=== PATIENT | male | born 1970 | race Caucasian/White ===

== ENCOUNTER 2024-01-12 10:52 | Inpatient (IN) | payer SELFPAY ==
--- NOTE | 2024-01-12 11:13 | ED ---
Abdominal Pain HPI - General Source: patient, RN notes reviewed Mode of arrival: ambulatory Limitations: no limitations <Alpa Matute - Last Filed: 01/12/24 15:29> <Jason Egan - Last Filed: 01/14/24 07:36> - General Chief Complaint: Abdominal Pain Stated Complaint: Abd Pain Time Seen by Provider: 01/12/24 11:11 - History of Present Illness Initial Comments: Patient is a 53-year-old male presenting to the ER with chief complaint of abdominal pain. Patient states about 3 days ago he noticed a sharp pain in his right lower quadrant. He states the pain is now over bilateral lower quadrants. He states he has been having fevers and chills. He reports yesterday he only ate to peanuts. He also has been having decreased bowel movements stating only a little liquid came out yesterday. Denies any blood or dark tarry stools. He reports he tried drinking prune juice to help with constipation and he ended up vomiting in the open. He has been taking [id number] Advil without relief. Denies any urinary complaints, abdominal surgeries, current nausea, chest pain, shortness of breath. (Alpa Matute) - Related Data Home Medications Medication Instructions Recorded Confirmed Cholecalciferol (Vitamin D3) 50 mcg PO DAILY 01/12/24 01/12/24 [Vitamin D3 (50 Mcg = 2000 Iu)] Allergies Allergy/AdvReac Type Severity Reaction Status Date / Time No Known Allergies Allergy Verified 01/12/24 14:16 Review of Systems ROS Other: All systems not noted in ROS Statement are negative. <Alpa Matute - Last Filed: 01/12/24 15:29> ROS Other: All systems not noted in ROS Statement are negative. <Jason Egan - Last Filed: 01/14/24 07:36> ROS Statement: Those systems with pertinent positive or pertinent negative responses have been documented in the HPI. Past Medical History History of Any Multi-Drug Resistant Organisms: None Reported Past Psychological History: No Psychological Hx Reported Smoking Status: Current every day smoker Past Alcohol Use History: Rare Past Drug Use History: None Reported <Alpa Matute - Last Filed: 01/12/24 15:29> General Exam Limitations: no limitations General appearance: alert, in no apparent distress Head exam: Present: atraumatic, normocephalic, normal inspection Eye exam: Present: normal appearance, PERRL, EOMI. Absent: scleral icterus, conjunctival injection, periorbital swelling Respiratory exam: Present: normal lung sounds bilaterally. Absent: respiratory distress, wheezes, rales, rhonchi, stridor Cardiovascular Exam: Present: normal rhythm, tachycardia, normal heart sounds. Absent: systolic murmur, diastolic murmur, rubs, gallop, clicks GI/Abdominal exam: Present: soft, tenderness (Bilateral lower quadrant), guarding, normal bowel sounds Back exam: Present: normal inspection Neurological exam: Present: alert, oriented X3, CN II-XII intact Psychiatric exam: Present: normal affect, normal mood Skin exam: Present: warm, dry, intact, normal color. Absent: rash <Alpa Matute - Last Filed: 01/12/24 15:29> Course <Alpa Matute - Last Filed: 01/12/24 15:29> Vital Signs 01/12/24 01/12/24 01/12/24 10:56 12:12 12:51 Temperature 98.5 F 103.1 F H Pulse Rate 127 H 130 H 126 H Respiratory 18 22 20 Rate Blood Pressure 113/75 124/81 O2 Sat by Pulse 100 100 99 Oximetry 01/12/24 01/12/24 01/12/24 13:29 14:36 16:05 Temperature 99.3 F 100.5 F H Pulse Rate 116 H 121 H 113 H Respiratory 20 18 20 Rate Blood Pressure 113/75 93/67 107/66 O2 Sat by Pulse 97 97 95 Oximetry 01/12/24 17:41 Temperature 100.6 F H Pulse Rate 115 H Respiratory 20 Rate Blood Pressure 124/90 O2 Sat by Pulse 98 Oximetry - Reevaluation(s) Reevaluation #1: 01/12/24 15:18 Case discussed with Zachary Palumbo, who accepts medical admission. (Alpa Matute) Medical Decision Making - Lab Data Result diagrams: 01/12/24 12:11 01/12/24 12:11 - Radiology Data Radiology results: report reviewed, image reviewed <Alpa Matute - Last Filed: 01/12/24 15:29> - Lab Data Result diagrams: 01/13/24 06:37 01/13/24 06:37 <Jason Egan - Last Filed: 01/14/24 07:36> - Medical Decision Making Was pt. sent in by a medical professional or institution ([facility], CLUB CAR ATTENDANT, urgent care, hospital, or long term...) When possible be specific @ -No Did you speak to anyone other than the patient for history (EMS, parent, family, police, friend...)? What history was obtained from this source @ -No Did you review nursing and triage notes (agree or disagree)? Why? @ -I reviewed and agree with nursing and triage notes Were old charts reviewed (outside hosp., previous admission, EMS record, old EKG, old radiological studies, urgent care reports/EKG's, long term records)? Report findings @ -No old charts were reviewed Differential Diagnosis (chest pain, altered mental status, abdominal pain women, abdominal pain men, vaginal bleeding, weakness, fever, dyspnea, syncope, headache, dizziness, GI bleed, back pain, seizure, CVA, palpatations, mental health, musculoskeletal)? @ -Differential Abdominal Pain Men:Appendicitis, cholecystitis, diverticulosis, ischemic bowel, pancreatitis, hepatitis, UTI, gastroenteritis, AAA, incarcerated hernia, bowel obstruction, constipation, inflammatory bowel, hepatitis, peptic ulcer disease, splenic infarction, perforated viscus, testicular torsion, this is not meant to be an all-inclusive list EKG interpreted by me (3pts min.). @ -None X-rays interpreted by me (1pt min.). @ -None done CT interpreted by me (1pt min.). @ -CT abdomen pelvis significant for colonic diverticulosis with mild sigmoid diverticulitis. Underlying mass not excluded. Small hiatal hernia present. No bowel obstruction or appendicitis. U/S interpreted by me (1pt. min.). @ -None done What testing was considered but not performed or refused? (CT, X-rays, U/S, labs)? Why? @ -None What meds were considered but not given or refused? Why? @ -None Did you discuss the management of the patient with other professionals (professionals i.e. [facility] [employer], CLUB CAR ATTENDANT, lab, RT, psych nurse, social worker psychiatric, specialty development consultant, teacher, education officer, senior case manager)? Give summary @ -Yes, case discussed with Zachary Palumbo, who accepts medical management. Was smoking cessation discussed for >3mins.? @ -No Was critical care preformed (if so, how long)? @ -No Were there social determinants of health that impacted care today? How? (Homelessness, low income, unemployed, alcoholism, drug addiction, transportation, low edu. Level, literacy, decrease access to med. care, group home, rehab)? @ -Patient does not have health insurance and does not follow-up regularly with a PCP. Was there de-escalation of care discussed even if they declined (Discuss DNR or withdrawal of care, Hospice)? DNR status @ -No What co-morbidities impacted this encounter? (DM, HTN, Smoking, COPD, CAD, Cancer, CVA, ARF, Chemo, Hep., AIDS, mental health diagnosis, sleep apnea, morbid obesity)? @ -None Was patient admitted / discharged? Hospital course, mention meds given and route, prescriptions, significant lab abnormalities, going to OR and other perti nent info. @ -Admitted. Patient is a 53-year-old male presented to the ER with chief complaint of abdominal pain. History and physical exam completed. Vitals significant for tachycardia at 127 and temperature on arrival 98.5. Patient did have focal abdominal tenderness to bilateral lower quadrants. Normal bowel sounds. Labs significant for white blood cell count 13.6 otherwise unremarkable. Lactic 1.8. Urine showing 2+ ketones and moderate blood. Influenza, RSV, COVID- negative. CT abdomen pelvis significant for colonic diverticulosis with mild sigmoid diverticulitis. Underlying mass not excluded. Small hiatal hernia present. No bowel obstruction or appendicitis. Patient received IV Toradol and 2 L of fluids. Repeat temperature significant for 103 Fahrenheit patient received IV Tylenol. Results discussed with patient, all questions answered. Admission considered due to findings and sepsis. Case discussed with Zachary Palumbo, who accepts medical management. Patient will be started on IV Zosyn and ID will be on consult. Patient agreeable for admission. Undiagnosed new problem with uncertain prognosis? @ -Yes Drug Therapy requiring intensive monitoring for toxicity (Heparin, Nitro, Insulin, Cardizem)? @ -No Were any procedures done? @ -No Diagnosis/symptom? @ -Diverticulitis/sepsis Acute, or Chronic, or Acute on Chronic? @ -Acute Uncomplicated (without systemic symptoms) or Complicated (systemic symptoms)? @ -Complicated Side effects of treatment? @ -No Exacerbation, Progression, or Severe Exacerbation? @ -No Poses a threat to life or bodily function? How? (Chest pain, USA, AL, pneumonia, PE, COPD, DKA, ARF, appy, cholecystitis, CVA, Diverticulitis, Homicidal, Suicidal, threat to staff... and all critical care pts) @ -Yes, sepsis can lead to organ dysfunction/damage which is life threatening. (Alpa Matute) - Lab Data Lab Results 01/12/24 01/12/24 01/12/24 Range/Units 12:11 12:11 12:11 WBC 13.6 H (3.8-10.6) k/uL RBC 5.36 (4.30-5.90) m/uL Hgb 16.3 (13.0-17.5) gm/dL Hct 47.2 (39.0-53.0) % MCV 88.1 (80.0-100.0) fL MCH 30.4 (25.0-35.0) pg MCHC 34.5 (31.0-37.0) g/dL RDW 13.8 (11.5-15.5) % Plt Count 161 (150-450) k/uL MPV 8.6 Sodium 137 (137-145) mmol/L Potassium 4.4 (3.5-5.1) mmol/L Chloride 103 (98-107) mmol/L Carbon Dioxide 25 (22-30) mmol/L Anion Gap 9 mmol/L BUN 20 (9-20) mg/dL Creatinine 1.10 (0.66-1.25) mg/dL Est GFR (CKD-EPI)AfAm 88 (>60 ml/min/1.73 sqM) Est GFR (CKD-EPI)NonAf 76 (>60 ml/min/1.73 sqM) Glucose 100 H (74-99) mg/dL Plasma Lactic Acid Jose 1.8 (0.7-2.0) mmol/L Calcium 9.1 (8.4-10.2) mg/dL Total Bilirubin 2.8 H (0.2-1.3) mg/dL AST 38 (17-59) U/L ALT 31 (4-49) U/L Alkaline Phosphatase 116 (38-126) U/L Total Protein 7.4 (6.3-8.2) g/dL Albumin 4.0 (3.5-5.0) g/dL Amylase 57 (30-110) U/L Lipase 44 (23-300) U/L Urine Color Urine Appearance (Clear) Urine pH (5.0-8.0) Ur Specific [place] (1.001-1.035) Urine Protein (Negative) Urine Glucose (UA) (Negative) Urine Ketones (Negative) Urine Blood (Negative) Urine Nitrite (Negative) Urine Bilirubin (Negative) Urine Urobilinogen (<2.0) mg/dL Ur Leukocyte Esterase (Negative) Urine RBC (0-5) /hpf Urine WBC (0-5) /hpf Ur Squamous Epith Cells (0-4) /hpf Urine Mucus (None) /hpf Influenza Type A (PCR) (Not Detectd) Influenza Type B (PCR) (Not Detectd) RSV (PCR) (Not Detectd) SARS-CoV-2 (PCR) (Not Detectd) 01/12/24 01/12/24 Range/Units 13:53 14:36 WBC (3.8-10.6) k/uL RBC (4.30-5.90) m/uL Hgb (13.0-17.5) gm/dL Hct (39.0-53.0) % MCV (80.0-100.0) fL MCH (25.0-35.0) pg MCHC (31.0-37.0) g/dL RDW (11.5-15.5) % Plt Count (150-450) k/uL MPV Sodium (137-145) mmol/L Potassium (3.5-5.1) mmol/L Chloride (98-107) mmol/L Carbon Dioxide (22-30) mmol/L Anion Gap mmol/L BUN (9-20) mg/dL Creatinine (0.66-1.25) mg/dL Est GFR (CKD-EPI)AfAm (>60 ml/min/1.73 sqM) Est GFR (CKD-EPI)NonAf (>60 ml/min/1.73 sqM) Glucose (74-99) mg/dL Plasma Lactic Acid Jose (0.7-2.0) mmol/L Calcium (8.4-10.2) mg/dL Total Bilirubin (0.2-1.3) mg/dL AST (17-59) U/L ALT (4-49) U/L Alkaline Phosphatase (38-126) U/L Total Protein (6.3-8.2) g/dL Albumin (3.5-5.0) g/dL Amylase (30-110) U/L Lipase (23-300) U/L Urine Color Yellow Urine Appearance Clear (Clear) Urine pH 6.0 (5.0-8.0) Ur Specific [place] >1.050 H (1.001-1.035) Urine Protein 1+ H (Negative) Urine Glucose (UA) Negative (Negative) Urine Ketones 2+ H (Negative) Urine Blood Moderate H (Negative) Urine Nitrite Negative (Negative) Urine Bilirubin Negative (Negative) Urine Urobilinogen 3.0 (<2.0) mg/dL Ur Leukocyte Esterase Negative (Negative) Urine RBC 6 H (0-5) /hpf Urine WBC 2 (0-5) /hpf Ur Squamous Epith Cells <1 (0-4) /hpf Urine Mucus Rare H (None) /hpf Influenza Type A (PCR) Not Detected (Not Detectd) Influenza Type B (PCR) Not Detected (Not Detectd) RSV (PCR) Not Detected (Not Detectd) SARS-CoV-2 (PCR) Not Detected (Not Detectd) Disposition Time of Disposition: 14:34 <Alpa Matute - Last Filed: 01/12/24 15:29> <Jason Egan - Last Filed: 01/14/24 07:36> Clinical Impression: Diverticulitis, Sepsis Disposition: ADMITTED IP TO THIS HOSP Condition: Fair
[2024-01-12] MEDS: SODIUM CHLORIDE 0.9% 1,000 ML IV STA ×2 (12:06→13:54)
[2024-01-12] MEDS: KETOROLAC 15 MG/ML 1 ML VIAL IVP STA (12:07)
[2024-01-12 12:23] LABS: HCT 47.2 % (39.0-53.0); HGB 16.3 gm/dL (13.0-17.5); MCH 30.4 pg (25.0-35.0); MCHC 34.5 g/dL (31.0-37.0); MCV 88.1 fL (80.0-100.0); Mean Platelet Volume 8.6; Platelet Count 161 k/uL (150-450); RBC 5.36 m/uL (4.30-5.90); RDW 13.8 % (11.5-15.5); WBC 13.6 k/uL (3.8-10.6)
[2024-01-12 12:40] LABS: ALT 31 U/L (4-49); AST 38 U/L (17-59); African American GFR (CKD) 88 (>60 ml/min/1.73 sqM); Alkaline Phosphatase 116 U/L (38-126); Amylase 57 U/L (30-110); Anion Gap 9 mmol/L; Blood Urea Nitrogen 20 mg/dL (9-20); Calcium 9.1 mg/dL (8.4-10.2); Carbon Dioxide 25 mmol/L (22-30); Chloride 103 mmol/L (98-107); Glucose 100 mg/dL (74-99); Lipase 44 U/L (23-300); Non-African American GFR(CKD) 76 (>60 ml/min/1.73 sqM); Potassium 4.4 mmol/L (3.5-5.1); Sodium 137 mmol/L (137-145); Total Bilirubin 2.8 mg/dL (0.2-1.3); Total Protein 7.4 g/dL (6.3-8.2)
--- NOTE | 2024-01-12 12:51 | CT ---
EXAMINATION: CT ABDOMEN AND PELVIS WITH IV CONTRAST DATE OF EXAMINATION: 01/12/2024. COMPARISON: None available.. INDICATION: Lower abdominal pain and constipation. PROCEDURE: Axial CT of the abdomen and pelvis was performed with contrast and sagittal and coronal reformatted images were performed. CT dose lowering techniques were used, to include: automated expos ure control, adjustment for patient size, and/or use of iterative reconstruction. 100 mL of Isovue 30 0 was given intravenously. FINDINGS: LOWER CHEST : The visualized lung bases are clear. There are no pleural or pericardial effusions. ABDOMEN: Liver and Biliary system: Normal. Adrenal glands: Normal. Kidneys and ureters: Normal. Spleen: Normal. Pancreas: Normal. Gallbladder: Normal. Lymph nodes, Peritoneum and mesentery: There is no mesenteric or retroperitoneal lymphadenopathy. Gastrointestinal tract: There are no dilated loops of bowel or free intraperitoneal air. The base is normal. There is a small hiatal hernia of the sliding type. There is moderate transverse colonic, descending colonic and significant sigmoid colonic diverticulosis with some thickening of the sigmoi d colonic wall and some surrounding mild inflammation compatible with diverticulitis. Underlying brooklynn gnancy is difficult to exclude given the degree of thickening and a follow-up to resolution is recomm ended. Aorta/IVC: There is mild vascular calcification and plaque seen throughout the abdominal aorta with out evidence of aneurysmal dilation or dissection. IVC normal. Abdominal wall: Normal. PELVIS: Fluid: There is no free fluid in the pelvis. Lymph Nodes: There is no pelvic or inguinal lymphadenopathy.. Urinary bladder: Normal. BONES: There are no osseous destructive lesions.. ADDITIONAL SIGNIFICANT FINDINGS: None. IMPRESSION: 1. Colonic diverticulosis as above with mild sigmoid diverticulitis. An underlying mass is not exclud ed given the appearance and a follow-up to resolution is recommended. 2. Small hiatal hernia. 3. No bowel obstruction or appendicitis.
[2024-01-12] MEDS: ACETAMINOPHEN IV (For NPO) 1,000 MG in EMPTY BAG 1 BAG IVPB STA (13:28)
[2024-01-12 15:02] LABS: Appearance,Urine Clear (Clear); Bilirubin,Urine Negative (Negative); Blood,Urine Moderate (Negative); Color,Urine Yellow; Glucose,Urine (UA) Negative (Negative); Ketones,Urine 2+ (Negative); Leukocyte Esterase,Urine Negative (Negative); Mucus,Urine Rare /hpf; Nitrite,Urine Negative (Negative); Protein,Urine 1+ (Negative); RBC,Urine 6 /hpf (0-5); Squamous Epithelial Cell,Urine <1 /hpf (0-4); WBC,Urine 2 /hpf (0-5)
[2024-01-12 15:12] LABS: Specific Gravity,Urine >1.050 (1.001-1.035)
[2024-01-12] MEDS ORDERED: KETOROLAC 15 MG/ML 1 ML VIAL IVP PRN (15:12)
[2024-01-12] MEDS ORDERED: NALOXONE 0.4 MG/ML 1 ML VIAL IV PRN (15:12)
[2024-01-12] MEDS ORDERED: ONDANSETRON 4 MG/2 ML VIAL IVP PRN (15:12)
[2024-01-12] MEDS: SODIUM CHLORIDE 0.9% 1,000 ML IV SCH (16:04)
[2024-01-12] MEDS: PIPERACILLIN-TAZOBACTAM 3.375 GM in SODIUM CHLORIDE 0.9% 100 ML IVPB STA (16:04)
--- NOTE | 2024-01-12 16:44 | P.HPIM ---
History of Present Illness H&P Date: 01/12/24 Chief Complaint: Abdominal pain 53-year-old man with no reported medical history who does not take any medications at home presented for evaluation of abdominal pain. Patient says that he started to experience acute abdominal pain 3 days ago which was sharp in nature and predominantly in his lower left quadrant. This is associated with some nausea as well as constipation. Patient also reports developing fevers, chills, sweats shortly after the development of abdominal pain. He has never had issues of this nature before. He does think that it may be related to a me al that he had at [employer]. Notably, he denies a history of abdominal surgeries, inflammatory bowel disease in himself or his family members. He further denies chest pain, syncope, numbness/weakness of extremities, new rashes. Patient did report intermittent bouts of bright red bl ood per rectum. Patient is 1/2 pack/day smoker, denies alcohol, denies recreational drugs, denies significant allergies. In the emergency room, patient was febrile to a Tmax of 103.1, 124/81, heart rate 126. Patient received 2 L of fluid bolus and had a ophelia blood pressure of 93/67, however, heart rate did come down to 110's and pressures remained stable in the 100s over 60s. CBC showed leukocytosis to 13.6. Basic metabolic panel is unremarkable. Lactic acid is 1.8. Liver function test showed elevated total bilirubin of 2.8. UA showed elevated specific gravity 1.05, 1+ protein, 2+ ket ones, moderate amount of blood, 6 red blood cells. Influenza A, B, RSV, COVID were negative. Abdomen/pelvis CT demonstrated sigmoid diverticulitis with an inability to rule out an underlying mass. All Systems reviewed and pertinent positives and negatives noted in HPI, all other symptoms are negative Gen: In NAD, non-toxic HEENT: normocephalic, atraumatic, hearing acuity is intant, mucous membranes moist CVS: perfusing all extremities well, no pitting edema, no appreciable murmurs Respiratory: symmetric chest expansion, no accessory muscle use, clear to auscultation bilaterally GI: soft, tenderness to palpation is predominantly in the left lower quadrant without any rebound tenderness or guarding : no suprapubic tenderness, no CVA tenderness MSK/Derm: no rashes, cyanosis Neuro: CN II-XII intact, no motor weakness, Psych: cooperative, euthymic mood, judgment and insight is intact Labs and imaging as above Assessment/plan: Sepsis criteria is met with 3 out of 4 SIRS criteria as well as a source of sigmoid diverticulitis Sigmoid diverticulitis Possible sigmoid mass -Patient is admitted as an inpatient -Start patient on lactated Ringer's 125 cc/h after 1000 cc bolus; patient received 2 normal saline 1000 cc boluses in the emergency room -ESR, CRP -Stool lactoferrin -Stool culture -FOBT -Consult general surgery for colonoscopy -ID was consulted and initiated Zosyn -morphine PRN for pain control Patient is full code Past Medical History History of Any Multi-Drug Resistant Organisms: None Reported Past Psychological History: No Psychological Hx Reported Smoking Status: Current every day smoker Past Alcohol Use History: Rare Past Drug Use History: None Reported Medications and Allergies Home Medications Medication Instructions Recorded Confirmed Type Cholecalciferol (Vitamin D3) 50 mcg PO DAILY 01/12/24 01/12/24 History [Vitamin D3 (50 Mcg = 2000 Iu)] Allergies Allergy/AdvReac Type Severity Reaction Status Date / Time No Known Allergies Allergy Verified 01/12/24 14:16 Physical Exam Osteopathic Statement: *. No significant issues noted on an osteopathic structural exam other than those noted in the History and Physical/Consult. Vitals: Vital Signs Temp Pulse Resp BP Pulse Ox 01/12/24 16:05 100.5 F H 113 H 20 107/66 95 01/12/24 14:36 99.3 F 121 H 18 93/67 97 01/12/24 13:29 116 H 20 113/75 97 01/12/24 12:51 103.1 F H 126 H 20 124/81 99 01/12/24 12:12 130 H 22 100 01/12/24 10:56 98.5 F 127 H 18 113/75 100 Intake and Output 01/12/24 01/12/24 01/12/24 06:59 14:59 22:59 Other: Weight 83.915 kg Results CBC & Chem 7: 01/12/24 12:11 01/12/24 12:11 Labs: Abnormal Lab Results - Last 24 Hours (Table) 01/12/24 01/12/24 01/12/24 Range/Units 12:11 12:11 14:36 WBC 13.6 H (3.8-10.6) k/uL Glucose 100 H (74-99) mg/dL Total Bilirubin 2.8 H (0.2-1.3) mg/dL Ur Specific [place] >1.050 H (1.001-1.035) Urine Protein 1+ H (Negative) Urine Ketones 2+ H (Negative) Urine Blood Moderate H (Negative) Urine RBC 6 H (0-5) /hpf Urine Mucus Rare H (None) /hpf
[2024-01-12] MEDS: LACTATED RINGERS 1,000 ML IV ONE ×2 (17:38→17:41)
[2024-01-12] MEDS: ACETAMINOPHEN TAB 325 MG TAB PO PRN (18:36)
[2024-01-12] MEDS: MORPHINE SULFATE 4 MG/ML SYRINGE IVP PRN (22:48)
[2024-01-12] MEDS: PIPERACILLIN-TAZOBACTAM 3.375 GM in SODIUM CHLORIDE 0.9% 100 ML IVPB SCH (22:49)
--- NOTE | 2024-01-12 22:52 | P.CONS ---
History of Present Illness - Reason for Consult Consult date: 01/12/24 Diverticulitis Requesting physician: Alpa Matute - Chief Complaint Abdominal pain x few days - History of Present Illness Patient is a 53-year-old male with no significant past medical history currently everyday smoker patient presenting to the hospital for evaluation of abdominal pain patient mention he did have off-and-on abdominal pain which she usually attributed to indigestion however for the last 3 days patient seem to have more persistent pain to the lower abdominal area patient was describing the pain to be colicky sharp moderate intensity and was almost 10 out of 10 by the time he presented to the hospital with associated nausea but no vomiting and did have constipation patient also complaining of fever with chills with recent with the patient was evaluated on presentation to the hospital he did have a fever of 103 F, patient was tachycardic mildly hypertensive but not hypoxic and did have white count of 13.6 with a left shift kidney function was normal liver enzymes are normal urine has been negative influenza RSV COVID testing was negative patient did have abdominal pelvis CT colonic diverticulosis with mild diverticulitis underlying mass is not excluded but did not mention any perforation or abscess he was given a dose of Zosyn infectious disease was consulted for further management of antibiotic therapy Review of Systems Positive point and negatives has been mentioned in the HPI, complete review of systems was performed and all other systems are negative Past Medical History History of Any Multi-Drug Resistant Organisms: None Reported Past Psychological History: No Psychological Hx Reported Smoking Status: Current every day smoker Past Alcohol Use History: Rare Past Drug Use History: None Reported Medications and Allergies Home Medications Medication Instructions Recorded Confirmed Type Cholecalciferol (Vitamin D3) 50 mcg PO DAILY 01/12/24 01/12/24 History [Vitamin D3 (50 Mcg = 2000 Iu)] Apixaban [Eliquis] 5 mg PO BID #60 tab 01/19/24 Rx Fluconazole [Diflucan] 200 mg PO DAILY #14 tablet 01/24/24 Rx cefTRIAXone [Rocephin] 2 gm IVPB Q24HR 14 Days each 01/24/24 Rx hydrOXYzine HCL [Atarax] 25 mg PO BID #60 tab 01/24/24 Rx metroNIDAZOLE [Flagyl] 500 mg PO TID #42 tab 01/24/24 Rx traMADol HCl [Ultram] 50 mg PO QID PRN #20 tab 01/24/24 Rx Allergies Allergy/AdvReac Type Severity Reaction Status Date / Time No Known Allergies Allergy Verified 01/12/24 14:16 Physical Exam Vitals: Vital Signs Temp Pulse Resp BP Pulse Ox 01/12/24 14:36 99.3 F 121 H 18 93/67 97 01/12/24 13:29 116 H 20 113/75 97 01/12/24 12:51 103.1 F H 126 H 20 124/81 99 01/12/24 12:12 130 H 22 100 01/12/24 10:56 98.5 F 127 H 18 113/75 100 Intake and Output 01/12/24 01/12/24 01/12/24 06:59 14:59 22:59 Other: Weight 83.915 kg GENERAL DESCRIPTION: Middle-aged male lying in bed, no distress. No tachypnea or accessory muscle of respiration use. HEENT: Shows Pallor , no scleral icterus. Oral mucous membrane is dry. No pharyngeal erythema or thrush NECK: Trachea central, no thyromegaly. LUNGS: Unlabored breathing. Clear to auscultation anteriorly. No wheeze or crackle. HEART: S1, S2, regular rate and rhythm. No loud murmur ABDOMEN: Soft, mild tenderness , EXTREMITIES: No edema of feet. SKIN: No rash, no masses palpable. NEUROLOGICAL: The patient is awake, alert, oriented x3, mood and affect normal. Results CBC & Chem 7: 01/24/24 05:50 01/24/24 05:50 Labs: Abnormal Lab Results - Last 24 Hours (Table) 01/12/24 01/12/24 01/12/24 Range/Units 12:11 12:11 14:36 WBC 13.6 H (3.8-10.6) k/uL Glucose 100 H (74-99) mg/dL Total Bilirubin 2.8 H (0.2-1.3) mg/dL Ur Specific [place] >1.050 H (1.001-1.035) Urine Protein 1+ H (Negative) Urine Ketones 2+ H (Negative) Urine Blood Moderate H (Negative) Urine RBC 6 H (0-5) /hpf Urine Mucus Rare H (None) /hpf Assessment and Plan (1) Diverticulitis Current Visit: Yes Status: Acute Priority: High Code(s): K57.92 - DVTRCLI OF INTEST, PART UNSP, W/O PERF OR ABSCESS W/O BLEED SNOMED Code(s): 591877189 (2) Sepsis Current Visit: Yes Status: Acute Code(s): A41.9 - SEPSIS, UNSPECIFIED ORGANISM SNOMED Code(s): 10478452 Plan: 1patient presented to hospital with sepsis in this patient who did have a fever tachycardia elevated white count presenting with abdominal pain sources include uncomplicated diverticulitis as no mention of any abscess on the CT the likely organism need to cover with enteric gram-negative both aerobes and anaerobes 2-the natural course of his disease has been explained to the patient in layman terms and how to prevent recurrent episode 3-we will start the patient on Zosyn 3.375 g every 8 hours along with bowel rest We will follow on clinical condition and cultures to further adjust medication if needed Thank you for this consultation we will follow the patient along with you Dictation was produced using [employer] dictation software. please excuse any grammatical, word or spelling errors. Time with Patient: Greater than 30
[2024-01-13 11:29] LABS: Basophils # (A) 0.02 X 10*3/uL (0.00-0.10); Basophils % (A) 0.1 %; Eosinophils # (A) 0 X 10*3/uL (0.04-0.35); Eosinophils % (A) 0 %; HCT 39.5 % (39.6-50.0); Lymphocytes # (A) 0.84 X 10*3/uL (0.90-5.00); Lymphocytes % (A) 5.9 %; MCHC 32.9 g/dL (32.0-37.0); MCV 88.2 FL (80.0-97.0); Mean Platelet Volume 11.9 FL (9.5-12.2); Monocytes % (A) 2.8 %; NRBC Per 100 WBC 0 X 10*3/uL (0.00-0.01); Neutrophils # (A) 13.02 X 10*3/uL (1.80-7.70); Neutrophils % (A) 90.9 %; Platelet Count 101 X 10*3/uL (140-440); RBC 4.48 X 10*6/uL (4.40-5.60); RDW 14.1 % (11.5-14.5); WBC 14.33 X 10*3/uL (4.50-10.00)
[2024-01-13 11:37] LABS: ALT 26 U/L (10-49); AST 21 U/L (14-35); Albumin 3.2 g/dL (3.8-4.9); Albumin/Globulin Ratio 1.45 Ratio (1.60-3.17); Alkaline Phosphatase 108 U/L (41-126); BUN/Creat Ratio 15.91 Ratio (12.00-20.00); Bilirubin, Conjugated 1.07 mg/dL (0.20-0.40); Bilirubin,Unconjugated 0.53 mg/dL (0.20-1.00); Blood Urea Nitrogen 17.5 mg/dL (9.0-27.0); Calcium 7.8 mg/dL (8.7-10.3); Carbon Dioxide 20.6 mmol/L (21.6-31.8); Chloride 106 mmol/L (96-109); Globulin 2.2 g/dL (1.6-3.3); Glucose 91 mg/dL (70-110); Magnesium 1.9 mg/dL (1.5-2.4); Potassium 3.7 mmol/L (3.5-5.5); Sodium 138 mmol/L (135-145); Total Bilirubin 1.6 mg/dL (0.3-1.2); Total Protein 5.4 g/dL (6.2-8.2)
--- NOTE | 2024-01-13 12:24 | P.GSCN ---
History of Present Illness Consult date: 01/13/24 History of present illness: CHIEF COMPLAINT: Abdominal pain HISTORY OF PRESENT ILLNESS: This is a 53-year-old male who presented with abdominal pain x 3 days. Patient reports initially pain started more in the right lower quadrant and went across the lower abdomen. He is more tender in the suprapubic and towards the left lower quadrant. Denies any prior history of diverticulitis. He has been febrile with a temp of 102. Mildly tachycardic. He did have a small bowel movement today denies any blood in the stools. He had been constipated prior to admission. He did have an episode of vomiting 2 days ago. Patient reports occasionally having blood in his stools. Last episode was about a week ago. He has never had a colonoscopy completed denies any family history of colon cancer. He is not on any blood thinners. He has been taking Advil over the last few days for abdominal pain. CT scan had reported mild sigmoid diverticulitis underlying mass not excluded. Patient reports poor oral intake. PAST MEDICAL HISTORY: See below PAST SURGICAL HISTORY: See below MEDICATIONS: See below ALLERGIES: See below SOCIAL HISTORY: No illicit drug use. Nicotine dependence REVIEW OF SYSTEMS: CONSTITUTIONAL: Denies fever or chills. HEENT: Denies blurred vision, vision changes, or eye pain. Denies hemoptysis CARDIOVASCULAR: Denies chest pain or pressure. RESPIRATORY: No shortness of breath. GASTROINTESTINAL: See HPI for pertinent findings HEMATOLOGIC: Denies bleeding disorders. GENITOURINARY: Denies any blood in urine or increased urinary frequency. SKIN: Denies pruitis. Denies rash. PHYSICAL EXAM: VITAL SIGNS: Reviewed GENERAL: Well-developed in no acute distress. HEENT: No sclera icterus. Extraocular movements grossly intact. Moist buccal mucosa. Head is atraumatic, normocephalic. No nasal drainage. ABDOMEN: Soft. Mildly distended. Tenderness with palpation across the mid and lower abdomen. More tender in the suprapubic and towards the left lower quadrant. NEUROLOGIC: Alert and oriented. Cranial nerves II through XII grossly intact. LABORATORY DATA: WBC 13.6-14.33 Hgb 13 platelets 101 Sed rate level 51 Sodium 138 potassium 3.7 creatinine 1.1 Total bilirubin 2.8-1.6 Stool for occult blood negative Influenza, RSV and COVID-19 not detected IMAGING: CT scan abdomen and pelvis reports colonic diverticulosis with mild sigmoid diverticulitis. An underlying mass is not excluded given the appearance and follow-up to resolution is recommended. Small hiatal hernia. No bowel obstruction or appendicitis. ASSESSMENT: 1. Acute sigmoid diverticulitis 2. Sepsis PLAN: -Downgrade diet to clear liquids -Continue to monitor -Repeat CBC in a.m. -Continue antibiotics -Further recommendations forthcoming per surgeon Physician Electric Meter Repairer Apprentice note has been reviewed by physician. Signing provider agrees with the documented findings, assessment, and plan of care. I have personally seen and examined the patient, reviewed the BURRER HAND /PAs history, exam and MDM and agree with the assessment and plan as written. Based on total visit time, I have performed more than 50% of the visit. As above: Patient came into the hospital with lower abdominal pain. CAT scan suggestive of acute sigmoid diverticulitis. Patient appears relatively comfortable however having significant fevers. White blood cell count slightly more elevated today. CAT scan does not show evidence of merly perforation or large abscess. Continue conservative management. Continue liquid diet. Continue broad-spectrum antibiotics and appreciate infectious disease evaluation. Will follow closely. Past Medical History Past Medical History: No Reported History History of Any Multi-Drug Resistant Organisms: None Reported Past Surgical History: Orthopedic Surgery Additional Past Surgical History / Comment(s): sternum surgery as a teenager Past Psychological History: No Psychological Hx Reported Smoking Status: Current every day smoker Past Alcohol Use History: Rare Past Drug Use History: None Reported Medications and Allergies Home Medications Medication Instructions Recorded Confirmed Type Cholecalciferol (Vitamin D3) 50 mcg PO DAILY 01/12/24 01/12/24 History [Vitamin D3 (50 Mcg = 2000 Iu)] Allergies Allergy/AdvReac Type Severity Reaction Status Date / Time No Known Allergies Allergy Verified 01/12/24 14:16 Surgical - Exam Vital Signs Temp Pulse Resp BP Pulse Ox 98.5 F 127 H 18 113/75 100 01/12/24 10:56 01/12/24 10:56 01/12/24 10:56 01/12/24 10:56 01/12/24 10:56 Results - Labs 01/13/24 06:37 01/13/24 06:37 Abnormal Lab Results - Last 24 Hours (Table) 01/12/24 01/12/24 01/12/24 Range/Units 12:11 12:11 14:36 WBC 13.6 H (3.8-10.6) k/uL Hct (39.6-50.0) % Plt Count (140-440) X 10*3/uL Immature Gran # (0.00-0.04) X 10*3/uL Neutrophils # (1.80-7.70) X 10*3/uL Lymphocytes # (0.90-5.00) X 10*3/uL Eosinophils # (0.04-0.35) X 10*3/uL ESR (0-20) mm/Hr Carbon Dioxide (21.6-31.8) mmol/L Glucose 100 H (74-99) mg/dL Calcium (8.7-10.3) mg/dL Total Bilirubin 2.8 H (0.2-1.3) mg/dL Conjugated Bilirubin (0.20-0.40) mg/dL C-Reactive Protein (<1.0) mg/dL Total Protein (6.2-8.2) g/dL Albumin (3.8-4.9) g/dL Albumin/Globulin Ratio (1.60-3.17) Ratio Ur Specific [place] >1.050 H (1.001-1.035) Urine Protein 1+ H (Negative) Urine Ketones 2+ H (Negative) Urine Blood Moderate H (Negative) Urine RBC 6 H (0-5) /hpf Urine Mucus Rare H (None) /hpf 01/12/24 01/12/24 01/13/24 Range/Units 16:41 16:41 06:37 WBC 14.33 H (3.8-10.6) k/uL Hct 39.5 L (39.6-50.0) % Plt Count 101 L (140-440) X 10*3/uL Immature Gran # 0.05 H (0.00-0.04) X 10*3/uL Neutrophils # 13.02 H (1.80-7.70) X 10*3/uL Lymphocytes # 0.84 L (0.90-5.00) X 10*3/uL Eosinophils # 0 L (0.04-0.35) X 10*3/uL ESR 51 H (0-20) mm/Hr Carbon Dioxide (21.6-31.8) mmol/L Glucose (74-99) mg/dL Calcium (8.7-10.3) mg/dL Total Bilirubin (0.2-1.3) mg/dL Conjugated Bilirubin (0.20-0.40) mg/dL C-Reactive Protein 33.7 H (<1.0) mg/dL Total Protein (6.2-8.2) g/dL Albumin (3.8-4.9) g/dL Albumin/Globulin Ratio (1.60-3.17) Ratio Ur Specific [place] (1.001-1.035) Urine Protein (Negative) Urine Ketones (Negative) Urine Blood (Negative) Urine RBC (0-5) /hpf Urine Mucus (None) /hpf 01/13/24 Range/Units 06:37 WBC (3.8-10.6) k/uL Hct (39.6-50.0) % Plt Count (140-440) X 10*3/uL Immature Gran # (0.00-0.04) X 10*3/uL Neutrophils # (1.80-7.70) X 10*3/uL Lymphocytes # (0.90-5.00) X 10*3/uL Eosinophils # (0.04-0.35) X 10*3/uL ESR (0-20) mm/Hr Carbon Dioxide 20.6 L (21.6-31.8) mmol/L Glucose (74-99) mg/dL Calcium 7.8 L (8.7-10.3) mg/dL Total Bilirubin 1.6 H (0.2-1.3) mg/dL Conjugated Bilirubin 1.07 H (0.20-0.40) mg/dL C-Reactive Protein (<1.0) mg/dL Total Protein 5.4 L (6.2-8.2) g/dL Albumin 3.2 L (3.8-4.9) g/dL Albumin/Globulin Ratio 1.45 L (1.60-3.17) Ratio Ur Specific [place] (1.001-1.035) Urine Protein (Negative) Urine Ketones (Negative) Urine Blood (Negative) Urine RBC (0-5) /hpf Urine Mucus (None) /hpf Diabetes panel 01/12/24 01/13/24 Range/Units 12:11 06:37 Sodium 137 138 (137-145) mmol/L Potassium 4.4 3.7 (3.5-5.1) mmol/L Chloride 103 106 (98-107) mmol/L Carbon Dioxide 25 20.6 L (22-30) mmol/L BUN 20 17.5 (9-20) mg/dL Creatinine 1.10 1.1 (0.66-1.25) mg/dL Glucose 100 H 91 (74-99) mg/dL Calcium 9.1 7.8 L (8.4-10.2) mg/dL AST 38 21 (17-59) U/L ALT 31 26 (4-49) U/L Alkaline Phosphatase 116 108 (38-126) U/L Total Protein 7.4 5.4 L (6.3-8.2) g/dL Albumin 4.0 3.2 L (3.5-5.0) g/dL Calcium panel 01/12/24 01/13/24 Range/Units 12:11 06:37 Calcium 9.1 7.8 L (8.4-10.2) mg/dL Albumin 4.0 3.2 L (3.5-5.0) g/dL Pituitary panel 01/12/24 01/13/24 Range/Units 12:11 06:37 Sodium 137 138 (137-145) mmol/L Potassium 4.4 3.7 (3.5-5.1) mmol/L Chloride 103 106 (98-107) mmol/L Carbon Dioxide 25 20.6 L (22-30) mmol/L BUN 20 17.5 (9-20) mg/dL Creatinine 1.10 1.1 (0.66-1.25) mg/dL Glucose 100 H 91 (74-99) mg/dL Calcium 9.1 7.8 L (8.4-10.2) mg/dL Adrenal panel 01/12/24 01/13/24 Range/Units 12:11 06:37 Sodium 137 138 (137-145) mmol/L Potassium 4.4 3.7 (3.5-5.1) mmol/L Chloride 103 106 (98-107) mmol/L Carbon Dioxide 25 20.6 L (22-30) mmol/L BUN 20 17.5 (9-20) mg/dL Creatinine 1.10 1.1 (0.66-1.25) mg/dL Glucose 100 H 91 (74-99) mg/dL Calcium 9.1 7.8 L (8.4-10.2) mg/dL Total Bilirubin 2.8 H 1.6 H (0.2-1.3) mg/dL AST 38 21 (17-59) U/L ALT 31 26 (4-49) U/L Alkaline Phosphatase 116 108 (38-126) U/L Total Protein 7.4 5.4 L (6.3-8.2) g/dL Albumin 4.0 3.2 L (3.5-5.0) g/dL
--- NOTE | 2024-01-13 14:03 | P.PN ---
Subjective Progress Note Date: 01/13/24 No new complaints. Ongoing fevers, but he reports pain is improving. Gen: In NAD, non-toxic HEENT: normocephalic, atraumatic, hearing acuity is intant, mucous membranes moist CVS: perfusing all extremities well, no pitting edema, no appreciable murmurs Respiratory: symmetric chest expansion, no accessory muscle use, clear to auscultation bilaterally GI: soft, tenderness to palpation is predominantly in the left lower quadrant without any rebound tenderness or guarding : no suprapubic tenderness, no CVA tenderness MSK/Derm: no rashes, cyanosis Neuro: CN II-XII intact, no motor weakness, Psych: cooperative, euthymic mood, judgment and insight is intact Hospital Course: 53-year-old man with no reported medical history who does not take any medications at home presented for evaluation of abdominal pain. In the emergency room, patient was febrile to a Tmax of 103.1, 124/81, heart rate 126. Patient received 2 L of fluid bolus and had a ophelia blood pressure of 93/67, however, heart rate did come down to 110's and pressures remained stable in the 100s over 60s. CBC showed leukocytosis to 13.6. Basic metabolic panel is unremarkable. Lactic acid is 1.8. Liver function test showed elevated total bilirubin of 2.8. UA showed elevated specific gravity 1.05, 1+ protein, 2+ ketones, moderate amount of blood, 6 red blood cells. Influenza A, B, RSV, COVID were negative. Abdomen/pelvis CT demonstrated sigmoid diverticulitis with an inability to rule out an underlying mass. Assessment/plan: Sepsis criteria is met with 3 out of 4 SIRS criteria as well as a source of sigmoid diverticulitis Sigmoid diverticulitis Possible sigmoid mass -Patient is admitted as an inpatient -Lactated Ringer's 125 cc/h -ESR, CRP are elevated at 51 and 35 -Stool lactoferrin, pending -Stool culture, pending -FOBT, negative -Consult general surgery for colonoscopy, outpatient -ID was consulted and initiated Zosyn, continue abx -morphine PRN for pain control Patient is full code Objective - Vital Signs Vital signs: Vital Signs Temp 99.6 F 01/13/24 06:47 Pulse 96 01/13/24 06:47 Resp 17 01/13/24 06:47 BP 103/68 01/13/24 06:47 Pulse Ox 95 01/13/24 06:47 FiO2 Intake & Output 01/12/24 01/13/24 01/13/24 18:59 06:59 18:59 Intake Total 118 Balance 118 Weight 83.915 kg 83.915 kg Intake: Oral 118 Other: Voiding Method Toilet - Labs CBC & Chem 7: 01/13/24 06:37 01/13/24 06:37 Labs: Abnormal Lab Results - Last 24 Hours (Table) 01/12/24 01/12/24 01/12/24 Range/Units 14:36 16:41 16:41 WBC (4.50-10.00) X 10*3/uL Hct (39.6-50.0) % Plt Count (140-440) X 10*3/uL Immature Gran # (0.00-0.04) X 10*3/uL Neutrophils # (1.80-7.70) X 10*3/uL Lymphocytes # (0.90-5.00) X 10*3/uL Eosinophils # (0.04-0.35) X 10*3/uL ESR 51 H (0-20) mm/Hr Carbon Dioxide (21.6-31.8) mmol/L Calcium (8.7-10.3) mg/dL Total Bilirubin (0.3-1.2) mg/dL Conjugated Bilirubin (0.20-0.40) mg/dL C-Reactive Protein 33.7 H (<1.0) mg/dL Total Protein (6.2-8.2) g/dL Albumin (3.8-4.9) g/dL Albumin/Globulin Ratio (1.60-3.17) Ratio Ur Specific [place] >1.050 H (1.001-1.035) Urine Protein 1+ H (Negative) Urine Ketones 2+ H (Negative) Urine Blood Moderate H (Negative) Urine RBC 6 H (0-5) /hpf Urine Mucus Rare H (None) /hpf 01/13/24 01/13/24 Range/Units 06:37 06:37 WBC 14.33 H (4.50-10.00) X 10*3/uL Hct 39.5 L (39.6-50.0) % Plt Count 101 L (140-440) X 10*3/uL Immature Gran # 0.05 H (0.00-0.04) X 10*3/uL Neutrophils # 13.02 H (1.80-7.70) X 10*3/uL Lymphocytes # 0.84 L (0.90-5.00) X 10*3/uL Eosinophils # 0 L (0.04-0.35) X 10*3/uL ESR (0-20) mm/Hr Carbon Dioxide 20.6 L (21.6-31.8) mmol/L Calcium 7.8 L (8.7-10.3) mg/dL Total Bilirubin 1.6 H (0.3-1.2) mg/dL Conjugated Bilirubin 1.07 H (0.20-0.40) mg/dL C-Reactive Protein (<1.0) mg/dL Total Protein 5.4 L (6.2-8.2) g/dL Albumin 3.2 L (3.8-4.9) g/dL Albumin/Globulin Ratio 1.45 L (1.60-3.17) Ratio Ur Specific [place] (1.001-1.035) Urine Protein (Negative) Urine Ketones (Negative) Urine Blood (Negative) Urine RBC (0-5) /hpf Urine Mucus (None) /hpf
--- NOTE | 2024-01-13 22:07 | P.PN ---
Subjective Progress Note Date: 01/13/24 Principal diagnosis: Reason for follow-up is sepsis and diverticulitis Patient is a 53-year-old male with no significant past medical history currently everyday smoker patient presenting to the hospital for evaluation of abdominal pain, patient has been diagnosed with diverticulitis without any perforation. On today's visit that is 01/13/2024, Patient did have a fever of 101 F this morning patient denies having any chest pain or shortness of breath cough has been complaining of abdominal distention and discomfort the pain is slightly decreased and did have a bowel movement. Patient white count of 14.33, creatinine is 1.1 Objective - Vital Signs Vital signs: Vital Signs Temp 102.6 F H 01/13/24 13:09 Pulse 97 01/13/24 13:09 Resp 17 01/13/24 13:09 BP 110/70 01/13/24 13:09 Pulse Ox 96 01/13/24 13:09 FiO2 Intake & Output 01/12/24 01/13/24 01/13/24 18:59 06:59 18:59 Intake Total 236 Balance 236 Weight 83.915 kg 83.915 kg Intake: Oral 236 Other: Voiding Method Toilet - Exam GENERAL DESCRIPTION: Middle-age male lying in bed in no distress RESPIRATORY SYSTEM: Unlabored breathing , decreased breath sounds at bases HEART: S1 S2 regular rate and rhythm , ABDOMEN: Soft , mild distention and tenderness EXTREMITIES: No edema feet - Labs CBC & Chem 7: 01/13/24 06:37 01/13/24 06:37 Labs: Abnormal Lab Results - Last 24 Hours (Table) 01/12/24 01/12/24 01/12/24 Range/Units 16:41 16:41 19:46 WBC (4.50-10.00) X 10*3/uL Hct (39.6-50.0) % Plt Count (140-440) X 10*3/uL Immature Gran # (0.00-0.04) X 10*3/uL Neutrophils # (1.80-7.70) X 10*3/uL Lymphocytes # (0.90-5.00) X 10*3/uL Eosinophils # (0.04-0.35) X 10*3/uL ESR 51 H (0-20) mm/Hr Carbon Dioxide (21.6-31.8) mmol/L Calcium (8.7-10.3) mg/dL Total Bilirubin (0.3-1.2) mg/dL Conjugated Bilirubin (0.20-0.40) mg/dL C-Reactive Protein 33.7 H (<1.0) mg/dL Total Protein (6.2-8.2) g/dL Albumin (3.8-4.9) g/dL Albumin/Globulin Ratio (1.60-3.17) Ratio Stool Lactoferrin Positive A (Negative) 01/13/24 01/13/24 Range/Units 06:37 06:37 WBC 14.33 H (4.50-10.00) X 10*3/uL Hct 39.5 L (39.6-50.0) % Plt Count 101 L (140-440) X 10*3/uL Immature Gran # 0.05 H (0.00-0.04) X 10*3/uL Neutrophils # 13.02 H (1.80-7.70) X 10*3/uL Lymphocytes # 0.84 L (0.90-5.00) X 10*3/uL Eosinophils # 0 L (0.04-0.35) X 10*3/uL ESR (0-20) mm/Hr Carbon Dioxide 20.6 L (21.6-31.8) mmol/L Calcium 7.8 L (8.7-10.3) mg/dL Total Bilirubin 1.6 H (0.3-1.2) mg/dL Conjugated Bilirubin 1.07 H (0.20-0.40) mg/dL C-Reactive Protein (<1.0) mg/dL Total Protein 5.4 L (6.2-8.2) g/dL Albumin 3.2 L (3.8-4.9) g/dL Albumin/Globulin Ratio 1.45 L (1.60-3.17) Ratio Stool Lactoferrin (Negative) Assessment and Plan (1) Diverticulitis Current Visit: Yes Status: Acute Code(s): K57.92 - DVTRCLI OF INTEST, PART UNSP, W/O PERF OR ABSCESS W/O BLEED SNOMED Code(s): 182432831 (2) Sepsis Current Visit: Yes Status: Acute Code(s): A41.9 - SEPSIS, UNSPECIFIED ORGANISM SNOMED Code(s): 07687066 Plan: 1patient presented to hospital with sepsis in this patient who did have a fever tachycardia elevated white count presenting with abdominal pain sources include uncomplicated diverticulitis as no mention of any abscess on the CT the likely organism need to cover with enteric gram-negative both aerobes and anaerobes 2-the is running a fever and did have some abdominal distention and pain should be strict n.p.o. and we will continue patient on Zosyn 3.375 g every 8 hours along with bowel rest Question concern answered Dictation was produced using [employer] dictation software. please excuse any grammatical, word or spelling errors. Time with Patient: Less than 30
--- NOTE | 2024-01-14 11:06 | P.PN ---
Subjective Progress Note Date: 01/14/24 No new complaints. Fevers have gotten better overnight per patient. Last fever at 1999 yesterday. Gen: In NAD, non-toxic HEENT: normocephalic, atraumatic, hearing acuity is intant, mucous membranes moist CVS: perfusing all extremities well, no pitting edema, no appreciable murmurs Respiratory: symmetric chest expansion, no accessory muscle use, clear to auscultation bilaterally GI: soft, tenderness to palpation is predominantly in the left lower quadrant without any rebound tenderness or guarding : no suprapubic tenderness, no CVA tenderness MSK/Derm: no rashes, cyanosis Neuro: CN II-XII intact, no motor weakness, Psych: cooperative, euthymic mood, judgment and insight is intact Hospital Course: 53-year-old man with no reported medical history who does not take any medications at home presented for evaluation of abdominal pain. In the emergency room, patient was febrile to a Tmax of 103.1, 124/81, heart rate 126. Patient received 2 L of fluid bolus and had a ophelia blood pressure of 93/67, however, heart rate did come down to 110's and pressures remained stable in the 100s over 60s. CBC showed leukocytosis to 13.6. Basic metabolic panel is unremarkable. Lactic acid is 1.8. Liver function test showed elevated total bilirubin of 2.8. UA showed elevated specific gravity 1.05, 1+ protein, 2+ ketones, moderate amount of blood, 6 red blood cells. Influenza A, B, RSV, COVID were negative. Abdomen/pelvis CT demonstrated sigmoid diverticulitis with an inability to rule out an underlying mass. Assessment/plan: Sepsis criteria is met with 3 out of 4 SIRS criteria as well as a source of sigmoid diverticulitis Sigmoid diverticulitis Possible sigmoid mass -Patient is admitted as an inpatient -Lactated Ringer's 125 cc/h, discontinued -ESR, CRP are elevated at 51 and 35 -Stool lactoferrin, positive -Stool culture, pending -FOBT, negative -Consult general surgery for colonoscopy, outpatient -ID was consulted and initiated Zosyn, continue abx -morphine PRN for pain control Patient is full code Objective - Vital Signs Vital signs: Vital Signs Temp 98.5 F 01/14/24 08:00 Pulse 87 01/14/24 09:00 Resp 18 01/14/24 09:00 BP 126/77 01/14/24 08:00 Pulse Ox 97 01/14/24 08:00 FiO2 Intake & Output 01/13/24 01/14/24 01/14/24 18:59 06:59 18:59 Intake Total 236 100 Balance 236 100 Intake: Intake, IV Titration 100 Amount Piperacillin-Tazobactam 3 100 .375 gm In Sodium Chloride 0.9% 100 ml @ 25 mls/hr IVPB Q8HR [facility] Rx# :[id number] Oral 236 Other: Voiding Method Toilet Toilet # Voids 5 1 # Bowel Movements 1 - Labs CBC & Chem 7: 01/13/24 06:37 01/13/24 06:37 Labs: Abnormal Lab Results - Last 24 Hours (Table) 01/12/24 01/13/24 01/13/24 Range/Units 19:46 06:37 06:37 WBC 14.33 H (4.50-10.00) X 10*3/uL Hct 39.5 L (39.6-50.0) % Plt Count 101 L (140-440) X 10*3/uL Immature Gran # 0.05 H (0.00-0.04) X 10*3/uL Neutrophils # 13.02 H (1.80-7.70) X 10*3/uL Lymphocytes # 0.84 L (0.90-5.00) X 10*3/uL Eosinophils # 0 L (0.04-0.35) X 10*3/uL Carbon Dioxide 20.6 L (21.6-31.8) mmol/L Calcium 7.8 L (8.7-10.3) mg/dL Total Bilirubin 1.6 H (0.3-1.2) mg/dL Conjugated Bilirubin 1.07 H (0.20-0.40) mg/dL Total Protein 5.4 L (6.2-8.2) g/dL Albumin 3.2 L (3.8-4.9) g/dL Albumin/Globulin Ratio 1.45 L (1.60-3.17) Ratio Stool Lactoferrin Positive A (Negative) Microbiology - Last 24 Hours (Table) 01/12/24 15:35 Blood Culture - Preliminary Blood 01/12/24 15:50 Blood Culture - Preliminary Blood
[2024-01-14 13:00] LABS: HCT 38.2 % (39.6-50.0); HGB 12.6 g/dL (13.0-17.0); MCV 89.9 FL (80.0-97.0); RBC 4.25 X 10*6/uL (4.40-5.60); WBC 10.93 X 10*3/uL (4.50-10.00)
[2024-01-14 13:01] LABS: Basophils # (A) 0.03 X 10*3/uL (0.00-0.10); Basophils % (A) 0.3 %; Eosinophils # (A) 0.05 X 10*3/uL (0.04-0.35); Eosinophils % (A) 0.5 %; Lymphocytes # (A) 1.11 X 10*3/uL (0.90-5.00); Lymphocytes % (A) 10.2 %; MCH 29.6 pg (27.0-32.0); Mean Platelet Volume 12.4 FL (9.5-12.2); Monocytes # (A) 0.53 X 10*3/uL (0.20-1.00); Monocytes % (A) 4.8 %; NRBC Per 100 WBC 0 X 10*3/uL (0.00-0.01); Neutrophils # (A) 9.17 X 10*3/uL (1.80-7.70); Neutrophils % (A) 83.8 %; Platelet Count 107 X 10*3/uL (140-440); RDW 14.5 % (11.5-14.5)
[2024-01-14 13:08] LABS: BUN/Creat Ratio 16.62 Ratio (12.00-20.00); Blood Urea Nitrogen 13.3 mg/dL (9.0-27.0); Calcium 7.8 mg/dL (8.7-10.3); Carbon Dioxide 21.3 mmol/L (21.6-31.8); Chloride 104 mmol/L (96-109); Glucose 110 mg/dL (70-110); Potassium 3.8 mmol/L (3.5-5.5); Sodium 137 mmol/L (135-145)
--- NOTE | 2024-01-14 14:23 | P.PN ---
Subjective Progress Note Date: 01/14/24 Principal diagnosis: Reason for follow-up is sepsis and diverticulitis Patient is a 53-year-old male with no significant past medical history currently everyday smoker patient presenting to the hospital for evaluation of abdominal pain, patient has been diagnosed with diverticulitis without any perforation. On today's visit that is 01/14/2024, patient did have resolution of his fever and is afebrile this morning, patient is breathing comfortably and is currently on room air, patient denies having any significant cough no chest pain shortness of breath, patient denies nausea vomiting did have a large bowel movement yesterday and abdominal pain has decreased in intensity. The patient white count is down to 10.93, creatinine 0.8 blood cultures pending Objective - Vital Signs Vital signs: Vital Signs Temp 98.5 F 01/14/24 08:00 Pulse 87 01/14/24 09:00 Resp 18 01/14/24 09:00 BP 126/77 01/14/24 08:00 Pulse Ox 97 01/14/24 08:00 FiO2 Intake & Output 01/13/24 01/14/24 01/14/24 18:59 06:59 18:59 Intake Total 236 100 Balance 236 100 Intake: Intake, IV Titration 100 Amount Piperacillin-Tazobactam 3 100 .375 gm In Sodium Chloride 0.9% 100 ml @ 25 mls/hr IVPB Q8HR [facility] Rx# :[id number] Oral 236 Other: Voiding Method Toilet Toilet # Voids 5 1 # Bowel Movements 1 - Exam GENERAL DESCRIPTION: Middle-age male lying in bed in no distress RESPIRATORY SYSTEM: Unlabored breathing , decreased breath sounds at bases HEART: S1 S2 regular rate and rhythm , ABDOMEN: Soft , mild distention and tenderness EXTREMITIES: No edema feet - Labs CBC & Chem 7: 01/14/24 06:51 01/14/24 06:51 Labs: Abnormal Lab Results - Last 24 Hours (Table) 01/12/24 Range/Units 19:46 Stool Lactoferrin Positive A (Negative) Microbiology - Last 24 Hours (Table) 01/12/24 15:35 Blood Culture - Preliminary Blood 01/12/24 15:50 Blood Culture - Preliminary Blood Assessment and Plan (1) Diverticulitis Current Visit: Yes Status: Acute Code(s): K57.92 - DVTRCLI OF INTEST, PART UNSP, W/O PERF OR ABSCESS W/O BLEED SNOMED Code(s): 425822771 (2) Sepsis Current Visit: Yes Status: Acute Code(s): A41.9 - SEPSIS, UNSPECIFIED ORGANISM SNOMED Code(s): 20923662 Plan: 1patient presented to hospital with sepsis in this patient who did have a fever tachycardia elevated white count presenting with abdominal pain sources include uncomplicated diverticulitis as no mention of any abscess on the CT the likely organism need to cover with enteric gram-negative both aerobes and anaerobes 2-patient did have resolution of his fever and the white count is trending down, patient to continue with the Zosyn along with bowel rest and will monitor clinical course closely Dictation was produced using [employer] dictation software. please excuse any grammatical, word or spelling errors. Time with Patient: Less than 30
--- NOTE | 2024-01-14 16:31 | CA ---
Transthoracic Echo Report Name: Alton Longoria Age: 53 Gender: M : 1970 Exam Date: 01/14/2024 13:24 Exam Location: [facility] Ht (in): 75 Wt (lb): 185 Ordering Physician: Shyam Delaney MD ([email or web address]) Attending/Referring Phys: W[employer] Work[employer] Neelam Johnston RDCS Procedure CPT: Indications: Chest Pain Cardiac Hx: Technical Quality: Fair Contrast 1: Total Dose (mL): Contrast 2: Total Dose (mL): MEASUREMENTS (Male / Female) Normal Values 2D ECHO LV Diastolic Diameter PLAX 5.2 cm 4.2 - 5.9 / 3.9 - 5.3 cm LV Systolic Diameter PLAX 3.8 cm IVS Diastolic Thickness 1.0 cm 0.6 - 1.0 / 0.6 - 0.9 cm LVPW Diastolic Thickness 1.0 cm 0.6 - 1.0 / 0.6 - 0.9 cm LV Relative Wall Thickness 0.4 RV Internal Dim ED PLAX 3.4 cm LA Systolic Diameter LX 3.8 cm 3.0 - 4.0 / 2.7 - 3.8 cm LV Diastolic Volume MOD BP 122.9 cm??? 67 - 155 / 56 - 104 cm??? LV Systolic Volume MOD BP 51.4 cm??? 22 - 58 / 19 - 49 cm??? LV Ejection Fraction MOD BP 58.2 % >= 55 % LV Cardiac Index MOD BP 3396.1 cm???/min???m??? LV Diastolic Volume MOD 4C 130.8 cm??? LV Systolic Volume MOD 4C 42.1 cm??? LV Ejection Fraction MOD 4C 67.8 % LV Cardiac Index MOD 4C 4214.3 cm???/min???m??? LV Diastolic Length 4C 7.9 cm LV Systolic Length 4C 6.9 cm LV Diastolic Volume MOD 2C 97.6 cm??? LV Systolic Volume MOD 2C 61.3 cm??? LV Ejection Fraction MOD 2C 37.1 % LV Cardiac Index MOD 2C 1721.3 cm???/min???m??? LV Diastolic Length 2C 6.7 cm LV Systolic Length 2C 6.6 cm LA Volume 58.6 cm??? 18 - 58 / 22 - 52 cm??? LA Volume Index 27.8 cm???/m??? 16 - 28 cm???/m??? M-MODE Aortic Root Diameter MM 3.6 cm MV E Point Septal Separation 0.6 cm AV Cusp Separation MM 2.2 cm DOPPLER AV Peak Velocity 147.8 cm/s AV Peak Gradient 8.7 mmHg MV Area PHT 3.0 cm??? Mitral E Point Velocity 99.6 cm/s Mitral A Point Velocity 96.3 cm/s Mitral E to A Ratio 1.0 MV Deceleration Time 249.0 ms TR Peak Velocity 204.9 cm/s TR Peak Gradient 16.8 mmHg Right Ventricular Systolic Press 21.8 mmHg FINDINGS Left Ventricle Left ventricular ejection fraction is estimated at 55-60 %. Left ventricular cavity size normal. Left ventricular wall thickness normal. Normal left ventricular wall motion. Right Ventricle Mild right ventricular dilatation. Right ventricular systolic pressure within normal limits. Right Atrium Normal right atrial size. Left Atrium Normal left atrial size. Mitral Valve Elongation of the anterior mitral valve leaflet. Mild mitral regurgitation. Posteriorly directed mitral regurgitation jet. Mitral valve thickened. Aortic Valve Trileaflet aortic valve. No aortic valve stenosis or regurgitation. Tricuspid Valve Structurally normal tricuspid valve. Mild tricuspid regurgitation. Pulmonic Valve Structurally normal pulmonic valve. No pulmonic regurgitation. Pericardium No pericardial effusion. Aorta Normal size aortic root and proximal ascending aorta. CONCLUSIONS Left ventricular ejection fraction is estimated at 55-60 %. Left ventricular cavity size normal. Normal left ventricular wall motion. Mildly redundant anterior mitral leafelet with mild prolapse with mild MR posteriorly directed No other significant valve pathology Previewed by: Dr Shyam Delaney (Electronically Signed) Final Date: 14 January 2024 16:30
--- NOTE | 2024-01-14 17:00 | P.CRDCN ---
History of Present Illness Consult date: 01/14/24 History of present illness: HISTORY OF PRESENTING ILLNESS 53-year-old male with no cardiac history presented to the hospital because of abdominal pain for last 3 to 4 days. He is also having nausea and constipation with poor appetite. He is also reporting fever and chills. Currently has been treated for a working diagnosis of diverticulitis and sepsis. Cardiology was consulted for run of nonsustained atrial tachycardia on his telemetry. On review of his telemetry patient had intermittent sinus tachycardia and short nonsustained ventricular tachycardia. Twelve-lead ECG shows sinus tachycardia. REVIEW OF SYSTEMS 14 point review of system is negative except what is mentioned above in HPI. PHYSICAL EXAMINATION Vital signs reviewed. Head: Normocephalic. Eyes: Sclerae nonicteric. Neck: Brisk carotid upstroke, no jugular venous distention. Lungs: Clear to auscultation. Heart: Regular rate and rhythm, S1-S2, no S3, no murmur or rub. Abdomen: Soft nontender, positive bowel sounds. Extremities: No edema, intact distal pulses. Neuro: Alert, oritented, no focal deficits. Detailed neuro exam was not performed. ASSESSMENT Severe sepsis Diverticulitis Physiological sinus tachycardia Nonsustained atrial tachycardia Echocardiogram shows normal size and systolic function with EF 55% with no valvular abnormality. No regional wall motion abnormality. PLAN Patient had short run of infrequent NSVT in setting of sepsis which can be physiological. Sinus tachycardia appears to physiological getting better. NO Structural abnormalities on echocardiogram. Supportive care for sepsis and diverticulitis as per primary team. Cardiology team will sign off. If patient has persistent NSVT's, feel free to reconsult cardiology Shyam Delaney MD, FACC, RPVI Thank you for allowing [facility] to participate in this patient's care. Feel free to reach out in case of any followup questions. Past Medical History Past Medical History: No Reported History History of Any Multi-Drug Resistant Organisms: None Reported Past Surgical History: Orthopedic Surgery Additional Past Surgical History / Comment(s): sternum surgery as a teenager Past Psychological History: No Psychological Hx Reported Smoking Status: Current every day smoker Past Alcohol Use History: Rare Past Drug Use History: None Reported Medications and Allergies Home Medications Medication Instructions Recorded Confirmed Type Cholecalciferol (Vitamin D3) 50 mcg PO DAILY 01/12/24 01/12/24 History [Vitamin D3 (50 Mcg = 2000 Iu)] Allergies Allergy/AdvReac Type Severity Reaction Status Date / Time No Known Allergies Allergy Verified 01/12/24 14:16 Physical Exam Vitals: Vital Signs Temp Pulse Resp BP Pulse Ox 01/14/24 14:30 61 18 122/65 97 01/14/24 09:00 87 18 01/14/24 08:00 98.5 F 87 18 126/77 97 01/14/24 01:49 97.6 F 82 16 115/74 98 01/13/24 23:48 98.9 F 01/13/24 20:00 102.8 F H 110 H 17 110/66 96 Intake and Output 01/14/24 01/14/24 01/14/24 06:59 14:59 22:59 Intake Total 100 Balance 100 Intake: Intake, IV Titration 100 Amount Piperacillin-Tazobactam 3 100 .375 gm In Sodium Chloride 0.9% 100 ml @ 25 mls/hr IVPB Q8HR [facility] Rx# :[id number] Other: Voiding Method Toilet # Voids 1 Results 01/14/24 06:51 01/14/24 06:51 CBC 01/14/24 Range/Units 06:51 WBC 10.93 H (4.50-10.00) X 10*3/uL RBC 4.25 L (4.40-5.60) X 10*6/uL Hgb 12.6 L (13.0-17.0) g/dL Hct 38.2 L (39.6-50.0) % Plt Count 107 L (140-440) X 10*3/uL Comprehensive Metabolic Panel 01/14/24 Range/Units 06:51 Sodium 137 (135-145) mmol/L Potassium 3.8 (3.5-5.5) mmol/L Chloride 104 (96-109) mmol/L Carbon Dioxide 21.3 L (21.6-31.8) mmol/L BUN 13.3 (9.0-27.0) mg/dL Creatinine 0.8 (0.6-1.5) mg/dL Glucose 110 (70-110) mg/dL Calcium 7.8 L (8.7-10.3) mg/dL Current Medications Generic Name Dose Route Start Last Admin Trade Name Freq PRN Reason Stop Dose Admin Acetaminophen 650 mg 01/12/24 17:36 01/14/24 16:23 Acetaminophen Tab 325 Mg Tab PO 650 mg Q4HR PRN Administration Fever and/ or Pain Piperacillin Sod/Tazobactam 100 mls @ 25 mls/hr 01/13/24 00:01 01/14/24 16:19 Sod 3.375 gm/ Sodium Chloride IVPB 25 mls/hr Q8HR JAY Administration Protocol Morphine Sulfate 4 mg 01/12/24 21:58 01/14/24 14:42 Morphine Sulfate 4 Mg/Ml Syringe IVP 4 mg Q4HR PRN Administration Pain Naloxone HCl 0.2 mg 01/12/24 15:12 Naloxone 0.4 Mg/Ml 1 Ml Vial IV Q2M PRN Opioid Reversal Ondansetron HCl 4 mg 01/12/24 15:12 Ondansetron 4 Mg/2 Ml Vial IVP Q8HR PRN Nausea And Vomiting Intake and Output 01/14/24 01/14/24 01/14/24 06:59 14:59 22:59 Intake Total 100 Balance 100 Intake: Intake, IV Titration 100 Amount Piperacillin-Tazobactam 3 100 .375 gm In Sodium Chloride 0.9% 100 ml @ 25 mls/hr IVPB Q8HR [facility] Rx# :[id number] Other: Voiding Method Toilet # Voids 1 01/14/24 06:51 01/14/24 06:51
--- NOTE | 2024-01-14 22:38 | P.PN ---
Subjective Principal diagnosis: Patient seen and evaluated bedside. Patient admits to persistent left lower quadrant pain with palpation. Objective - Vital Signs Vital signs: Vital Signs Temp 99.7 F H 01/14/24 20:00 Pulse 94 01/14/24 20:00 Resp 16 01/14/24 20:00 BP 110/69 01/14/24 20:00 Pulse Ox 96 01/14/24 20:00 FiO2 Intake & Output 01/14/24 01/14/24 01/15/24 06:59 18:59 07:59 Intake Total 100 Balance 100 Intake: Intake, IV Titration 100 Amount Piperacillin-Tazobactam 3 100 .375 gm In Sodium Chloride 0.9% 100 ml @ 25 mls/hr IVPB Q8HR [facility]PLACED BY [facility] Rx# :[id number] Other: Voiding Method Toilet Toilet # Voids 1 Gen. no acute distress Cardiovascular regular rate and rhythm Pulmonary nonlabored breathing Abdomen soft, tender to palpation left lower quadrant no guarding rebound tenderness - Labs CBC & Chem 7: 01/14/24 06:51 01/14/24 06:51 Labs: Abnormal Lab Results - Last 24 Hours (Table) 01/14/24 01/14/24 Range/Units 06:51 06:51 WBC 10.93 H (4.50-10.00) X 10*3/uL RBC 4.25 L (4.40-5.60) X 10*6/uL Hgb 12.6 L (13.0-17.0) g/dL Hct 38.2 L (39.6-50.0) % Plt Count 107 L (140-440) X 10*3/uL MPV 12.4 H (9.5-12.2) FL Neutrophils # 9.17 H (1.80-7.70) X 10*3/uL Carbon Dioxide 21.3 L (21.6-31.8) mmol/L Calcium 7.8 L (8.7-10.3) mg/dL Microbiology - Last 24 Hours (Table) 01/12/24 15:35 Blood Culture - Preliminary Blood 01/12/24 15:50 Blood Culture - Preliminary Blood Assessment and Plan Assessment: 53-year-old male with a complicated diverticulitis Clinical liquid diet patient still has pains I'll keep at this level for now Monitored bowel function Monitor abdominal pain Continue IV antibiotics
--- NOTE | 2024-01-15 10:24 | P.PN ---
Subjective Progress Note Date: 01/15/24 Principal diagnosis: Diverticulitis Patient doing better today. Says his pain is less. Had a fever of 102 yesterday around 5 PM but has been afebrile since then. Pain is mostly left lower quadrant. He is not hungry. Small amount of flatus. White blood cell count 10.9 yesterday. Objective - Vital Signs Vital signs: Vital Signs Temp 98.7 F 01/15/24 07:11 Pulse 75 01/15/24 08:35 Resp 18 01/15/24 08:35 BP 116/77 01/15/24 07:11 Pulse Ox 98 01/15/24 07:11 FiO2 Intake & Output 01/14/24 01/15/24 01/15/24 17:59 06:59 18:59 Intake Total Balance Intake: Intake, IV Titration Amount Piperacillin-Tazobactam 3 .375 gm In Sodium Chloride 0.9% 100 ml @ 25 mls/hr IVPB Q8HR [facility] Rx# :[id number] Oral Other: Voiding Method Toilet - Exam Abdomen: Soft, nondistended, mild to moderate left lower quadrant tenderness persist - Labs CBC & Chem 7: 01/14/24 06:51 01/14/24 06:51 Labs: Abnormal Lab Results - Last 24 Hours (Table) 01/14/24 01/14/24 Range/Units 06:51 06:51 WBC 10.93 H (4.50-10.00) X 10*3/uL RBC 4.25 L (4.40-5.60) X 10*6/uL Hgb 12.6 L (13.0-17.0) g/dL Hct 38.2 L (39.6-50.0) % Plt Count 107 L (140-440) X 10*3/uL MPV 12.4 H (9.5-12.2) FL Neutrophils # 9.17 H (1.80-7.70) X 10*3/uL Carbon Dioxide 21.3 L (21.6-31.8) mmol/L Calcium 7.8 L (8.7-10.3) mg/dL Microbiology - Last 24 Hours (Table) 01/12/24 15:35 Blood Culture - Preliminary Blood 01/12/24 15:50 Blood Culture - Preliminary Blood Assessment and Plan (1) Diverticulitis Narrative/Plan: 53-year-old male with diverticulitis. Slowly improving. Continue clear l iquids. Recheck CBC tomorrow. Monitor for recurrent fevers. May require repeat CAT scan this admission depending on how patient responds to treatment. Current Visit: Yes Status: Acute Code(s): K57.92 - DVTRCLI OF INTEST, PART UNSP, W/O PERF OR ABSCESS W/O BLEED SNOMED Code(s): 531475531
--- NOTE | 2024-01-15 11:46 | P.PN ---
Subjective Progress Note Date: 01/15/24 No new complaints. Had another fever last night, but overall fever profile improved. Gen: In NAD, non-toxic HEENT: normocephalic, atraumatic, hearing acuity is intant, mucous membranes moist CVS: perfusing all extremities well, no pitting edema, no appreciable murmurs Respiratory: symmetric chest expansion, no accessory muscle use, clear to auscultation bilaterally GI: soft, tenderness to palpation is predominantly in the left lower quadrant without any rebound tenderness or guarding : no suprapubic tenderness, no CVA tenderness MSK/Derm: no rashes, cyanosis Neuro: CN II-XII intact, no motor weakness, Psych: cooperative, euthymic mood, judgment and insight is intact Hospital Course: 53-year-old man with no reported medical history who does not take any medications at home presented for evaluation of abdominal pain. In the emergency room, patient was febrile to a Tmax of 103.1, 124/81, heart rate 126. Patient received 2 L of fluid bolus and had a ophelia blood pressure of 93/67, however, heart rate did come down to 110's and pressures remained stable in the 100s over 60s. CBC showed leukocytosis to 13.6. Basic metabolic panel is unremarkable. Lactic acid is 1.8. Liver function test showed elevated total bilirubin of 2.8. UA showed elevated specific gravity 1.05, 1+ protein, 2+ ketones, moderate amount of blood, 6 red blood cells. Influenza A, B, RSV, COVID were negative. Abdomen/pelvis CT demonstrated sigmoid diverticulitis with an inability to rule out an underlying mass. Assessment/plan: Sepsis criteria is met with 3 out of 4 SIRS criteria as well as a source of sigmoid diverticulitis Sigmoid diverticulitis Possible sigmoid mass -Patient is admitted as an inpatient -Lactated Ringer's 125 cc/h, discontinued -ESR, CRP are elevated at 51 and 35 -Stool lactoferrin, positive -Stool culture, pending -FOBT, negative -Consult general surgery for colonoscopy, outpatient -ID was consulted and initiated Zosyn, continue abx -morphine PRN for pain control Patient is full code Objective - Vital Signs Vital signs: Vital Signs Temp 98.7 F 01/15/24 07:11 Pulse 75 01/15/24 08:35 Resp 18 01/15/24 08:35 BP 116/77 01/15/24 07:11 Pulse Ox 98 01/15/24 07:11 FiO2 Intake & Output 01/14/24 01/15/24 01/15/24 17:59 06:59 18:59 Intake Total Balance Intake: Intake, IV Titration Amount Piperacillin-Tazobactam 3 .375 gm In Sodium Chloride 0.9% 100 ml @ 25 mls/hr IVPB Q8HR [facility] Rx# :[id number] Oral Other: Voiding Method Toilet - Labs CBC & Chem 7: 01/14/24 06:51 01/14/24 06:51 Labs: Abnormal Lab Results - Last 24 Hours (Table) 01/14/24 01/14/24 Range/Units 06:51 06:51 WBC 10.93 H (4.50-10.00) X 10*3/uL RBC 4.25 L (4.40-5.60) X 10*6/uL Hgb 12.6 L (13.0-17.0) g/dL Hct 38.2 L (39.6-50.0) % Plt Count 107 L (140-440) X 10*3/uL MPV 12.4 H (9.5-12.2) FL Neutrophils # 9.17 H (1.80-7.70) X 10*3/uL Carbon Dioxide 21.3 L (21.6-31.8) mmol/L Calcium 7.8 L (8.7-10.3) mg/dL Microbiology - Last 24 Hours (Table) 01/12/24 15:35 Blood Culture - Preliminary Blood 01/12/24 15:50 Blood Culture - Preliminary Blood
[2024-01-15] MEDS: traMADol 50 MG TAB PO PRN (13:40)
--- NOTE | 2024-01-15 14:57 | P.PN ---
Subjective Progress Note Date: 01/15/24 Principal diagnosis: Reason for follow-up is sepsis and diverticulitis Patient is a 53-year-old male with no significant past medical history currently everyday smoker patient presenting to the hospital for evaluation of abdominal pain, patient has been diagnosed with diverticulitis without any perforation. On today's visit that is 01/15/2024,the patient did spike a fever last evening of 102.6 patient did have a low-grade fever of 99.3 this afternoon has been complaining of more pain to the left lower abdominal area has felt nauseated but no vomiting did have some loose bowel movement no chest pain shortness of breath or cough. No lab draw today his white count normalized to 10.93 as of yesterday blood cultures are pending Objective - Vital Signs Vital signs: Vital Signs Temp 98.7 F 01/15/24 07:11 Pulse 75 01/15/24 08:35 Resp 18 01/15/24 08:35 BP 116/77 01/15/24 07:11 Pulse Ox 98 01/15/24 07:11 FiO2 Intake & Output 01/14/24 01/15/24 01/15/24 17:59 06:59 18:59 Intake Total Balance Intake: Intake, IV Titration Amount Piperacillin-Tazobactam 3 .375 gm In Sodium Chloride 0.9% 100 ml @ 25 mls/hr IVPB Q8HR [facility] Rx# :[id number] Oral Other: Voiding Method Toilet - Exam GENERAL DESCRIPTION: Middle-age male lying in bed in no distress RESPIRATORY SYSTEM: Unlabored breathing , decreased breath sounds at bases HEART: S1 S2 regular rate and rhythm , ABDOMEN: Soft , mild distention and left lower quadrant tenderness EXTREMITIES: No edema feet - Labs CBC & Chem 7: 01/14/24 06:51 01/14/24 06:51 Labs: Abnormal Lab Results - Last 24 Hours (Table) 01/14/24 01/14/24 Range/Units 06:51 06:51 WBC 10.93 H (4.50-10.00) X 10*3/uL RBC 4.25 L (4.40-5.60) X 10*6/uL Hgb 12.6 L (13.0-17.0) g/dL Hct 38.2 L (39.6-50.0) % Plt Count 107 L (140-440) X 10*3/uL MPV 12.4 H (9.5-12.2) FL Neutrophils # 9.17 H (1.80-7.70) X 10*3/uL Carbon Dioxide 21.3 L (21.6-31.8) mmol/L Calcium 7.8 L (8.7-10.3) mg/dL Microbiology - Last 24 Hours (Table) 01/12/24 15:35 Blood Culture - Preliminary Blood 01/12/24 15:50 Blood Culture - Preliminary Blood Assessment and Plan (1) Diverticulitis Current Visit: Yes Status: Acute Code(s): K57.92 - DVTRCLI OF INTEST, PART UNSP, W/O PERF OR ABSCESS W/O BLEED SNOMED Code(s): 520922004 (2) Sepsis Current Visit: Yes Status: Acute Code(s): A41.9 - SEPSIS, UNSPECIFIED ORGANISM SNOMED Code(s): 42949623 Plan: 1patient presented to hospital with sepsis in this patient who did have a fever tachycardia elevated white count presenting with abdominal pain sources include uncomplicated diverticulitis as no mention of any abscess on the CT the likely organism need to cover with enteric gram-negative both aerobes and anaerobes 2-patient did have some improvement in the fever pattern and white count was drawn yesterday however the patient still having more pain today if persist he will benefit from repeat CT for now continue with the Zosyn and bowel rest Family at the bedside questions were answered Dictation was produced using [employer] dictation software. please excuse any grammatical, word or spelling errors. Time with Patient: Less than 30
[2024-01-16 09:36] LABS: Basophils # (A) 0.05 X 10*3/uL (0.00-0.10); Basophils % (A) 0.3 %; Eosinophils % (A) 1.2 %; HCT 36.9 % (39.6-50.0); HGB 12.6 g/dL (13.0-17.0); Lymphocytes # (A) 1.53 X 10*3/uL (0.90-5.00); Lymphocytes % (A) 8.9 %; MCH 28.9 pg (27.0-32.0); MCHC 34.1 g/dL (32.0-37.0); MCV 84.6 FL (80.0-97.0); Mean Platelet Volume 11.8 FL (9.5-12.2); Monocytes # (A) 1.42 X 10*3/uL (0.20-1.00); Monocytes % (A) 8.2 %; NRBC Per 100 WBC 0 X 10*3/uL (0.00-0.01); Neutrophils # (A) 13.89 X 10*3/uL (1.80-7.70); Neutrophils % (A) 80.4 %; Platelet Count 166 X 10*3/uL (140-440); RBC 4.36 X 10*6/uL (4.40-5.60); RBC Morphology Normal (Normal); RDW 14.1 % (11.5-14.5); WBC 17.26 X 10*3/uL (4.50-10.00)
--- NOTE | 2024-01-16 10:27 | P.PN ---
Subjective Progress Note Date: 01/16/24 Patient continues to spike low-grade fevers, abdominal pain is improved, but still present. Patient had another episode of sweats last night as well. On physical exam, patient is still exquisitely tender to palpation in the left lower quadrant, but has no peritoneal signs. Gen: In NAD, non-toxic HEENT: normocephalic, atraumatic, hearing acuity is intant, mucous membranes moist CVS: perfusing all extremities well, no pitting edema, no appreciable murmurs Respiratory: symmetric chest expansion, no accessory muscle use, clear to auscultation bilaterally GI: soft, tenderness to palpation is predominantly in the left lower quadrant without any rebound tenderness or guarding : no suprapubic tenderness, no CVA tenderness MSK/Derm: no rashes, cyanosis Neuro: CN II-XII intact, no motor weakness, Psych: cooperative, euthymic mood, judgment and insight is intact Hospital Course: 53-year-old man with no reported medical history who does not take any medications at home presented for evaluation of abdominal pain. In the emergency room, patient was febrile to a Tmax of 103.1, 124/81, heart rate 126. Patient received 2 L of fluid bolus and had a ophelia blood pressure of 93/67, however, heart rate did come down to 110's and pressures remained stable in the 100s over 60s. CBC showed leukocytosis to 13.6. Basic metabolic panel is unremarkable. Lactic acid is 1.8. Liver function test showed elevated total bilirubin of 2.8. UA showed elevated specific gravity 1.05, 1+ protein, 2+ ketones, moderate amount of blood, 6 red blood cells. Influenza A, B, RSV, COVID were negative. Abdomen/pelvis CT demonstrated sigmoid diverticulitis with an inability to rule out an underlying mass. Assessment/plan: Sepsis criteria is met with 3 out of 4 SIRS criteria as well as a source of sigmoid diverticulitis Sigmoid diverticulitis Possible sigmoid mass -Patient is admitted as an inpatient -Lactated Ringer's 75 cc/h -ESR, CRP are elevated at 51 and 35 -Stool lactoferrin, positive -Stool culture, negative -FOBT, negative -Consult general surgery for colonoscopy, they would like to repeat CT abdomen/pelvis -ID was consulted and initiated Zosyn, continue abx, they would also like to repeat CT -morphine PRN for pain control -CT abdomen/pelvis was ordered by me today, this time I included oral contrast Patient is full code Objective - Vital Signs Vital signs: Vital Signs Temp 98.4 F 01/16/24 07:29 Pulse 93 01/16/24 07:29 Resp 18 01/16/24 07:29 BP 125/86 01/16/24 07:29 Pulse Ox 98 01/16/24 07:29 FiO2 Intake & Output 01/15/24 01/16/24 01/16/24 18:59 06:59 18:59 Other: Voiding Method Toilet Toilet # Voids 3 2 - Labs CBC & Chem 7: 01/16/24 05:55 01/14/24 06:51 Labs: Abnormal Lab Results - Last 24 Hours (Table) 01/16/24 Range/Units 05:55 WBC 17.26 H (4.50-10.00) X 10*3/uL RBC 4.36 L (4.40-5.60) X 10*6/uL Hgb 12.6 L (13.0-17.0) g/dL Hct 36.9 L (39.6-50.0) % Immature Gran # 0.17 H (0.00-0.04) X 10*3/uL Neutrophils # 13.89 H (1.80-7.70) X 10*3/uL Monocytes # 1.42 H (0.20-1.00) X 10*3/uL Microbiology - Last 24 Hours (Table) 01/12/24 19:46 Stool Culture - Final Stool 01/12/24 15:35 Blood Culture - Preliminary Blood 01/12/24 15:50 Blood Culture - Preliminary Blood
[2024-01-16 11:44] LABS: Basophils % (A) 0 %; Eosinophils # (A) 0.2 k/uL (0-0.7); Eosinophils % (A) 1 %; HCT 40.7 % (39.0-53.0); HGB 13.6 gm/dL (13.0-17.5); Lymphocytes # (A) 1.3 k/uL (1.0-4.8); Lymphocytes % (A) 8 %; MCH 29.9 pg (25.0-35.0); MCHC 33.5 g/dL (31.0-37.0); MCV 89.2 fL (80.0-100.0); Mean Platelet Volume 8.7; Monocytes # (A) 0.8 k/uL (0-1.0); Monocytes % (A) 5 %; Neutrophils # (A) 13.9 k/uL (1.3-7.7); Neutrophils % (A) 84 %; Platelet Count 187 k/uL (150-450); RBC 4.56 m/uL (4.30-5.90); WBC 16.6 k/uL (3.8-10.6)
--- NOTE | 2024-01-16 12:01 | P.PN ---
Subjective Progress Note Date: 01/16/24 CHIEF COMPLAINT: Diverticulitis HISTORY OF PRESENT ILLNESS: Patient complains of left lower quadrant pain. Rates the pain about a 4 out of 10. Does report that the pain is improving since admission. Did have a small bowel movement. Denies any blood in the stool. Reports decreased appetite. Denies any nausea or vomiting. Did have a low-grade temp of 100.8 last night. WBC is down from 17.26-16.6 PHYSICAL EXAM: VITAL SIGNS: Reviewed. GENERAL: Well-developed in no acute distress. ABDOMEN: Soft. Nondistended. Tenderness palpation left lower quadrant NEUROLOGIC: Alert and oriented. Cranial nerves II through XII grossly intact. ASSESSMENT: 1. Acute sigmoid diverticulitis PLAN: -Medicine service has ordered a repeat CT scan abdomen pelvis. Will follow-up on CT scan results -Continue antibiotics -Continue clear liquids Physician Ferryboat Operator [employer] note has been reviewed by physician. Signing provider agrees with the documented findings, assessment, and plan of care. I have personally seen and examined the patient, reviewed the NURSING FACULTY /PAs history, exam and MDM and agree with the assessment and plan as written. Based on total visit time, I have performed more than 50% of the visit. As above: Patient with elevated white blood cell count yesterday and again today. CAT scan reviewed and shows developing abscess anterior and superior to the sigmoid colon. Spoke with interventional radiology. They will review studies to see if they feel this is amenable to drainage here locally. Patient and I discussed at length options of surgical intervention versus percutaneous drain placement. We will try percutaneous drain placement first to see how the patient responds and hopefully avoid need for operative intervention, colectomy, colostomy. Continue antibiotics. Continue clear liquids. Objective - Vital Signs Vital signs: Vital Signs Temp 98.4 F 01/16/24 07:29 Pulse 93 01/16/24 07:29 Resp 18 01/16/24 07:29 BP 125/86 01/16/24 07:29 Pulse Ox 98 01/16/24 07:29 FiO2 Intake & Output 01/15/24 01/16/24 01/16/24 18:59 06:59 18:59 Other: Voiding Method Toilet Toilet # Voids 3 2 - Labs CBC & Chem 7: 01/16/24 11:23 01/16/24 11:23 Labs: Abnormal Lab Results - Last 24 Hours (Table) 01/16/24 01/16/24 Range/Units 05:55 11:23 WBC 17.26 H 16.6 H (4.50-10.00) X 10*3/uL RBC 4.36 L (4.40-5.60) X 10*6/uL Hgb 12.6 L (13.0-17.0) g/dL Hct 36.9 L (39.6-50.0) % Immature Gran # 0.17 H (0.00-0.04) X 10*3/uL Neutrophils # 13.89 H 13.9 H (1.80-7.70) X 10*3/uL Monocytes # 1.42 H (0.20-1.00) X 10*3/uL Microbiology - Last 24 Hours (Table) 01/12/24 19:46 Stool Culture - Final Stool 01/12/24 15:35 Blood Culture - Preliminary Blood 01/12/24 15:50 Blood Culture - Preliminary Blood
--- NOTE | 2024-01-16 12:22 | P.PN ---
Subjective Progress Note Date: 01/16/24 Principal diagnosis: Reason for follow-up is sepsis and diverticulitis Patient is a 53-year-old male with no significant past medical history currently everyday smoker patient presenting to the hospital for evaluation of abdominal pain, patient has been diagnosed with diverticulitis without any perforation. On today's visit that is 01/16/2024,the patient did have low-grade fever 100.8 last night patient is afebrile this morning patient had some nausea but no vomiting did have a bowel movement left lower quadrant abdominal pain about the same denies any worsening no chest pain shortness of breath or cough. Patient white count is up at 17.26 Objective - Vital Signs Vital signs: Vital Signs Temp 98.4 F 01/16/24 07:29 Pulse 93 01/16/24 07:29 Resp 18 01/16/24 07:29 BP 125/86 01/16/24 07:29 Pulse Ox 98 01/16/24 07:29 FiO2 Intake & Output 01/15/24 01/16/24 01/16/24 18:59 06:59 18:59 Other: Voiding Method Toilet Toilet # Voids 3 2 - Exam GENERAL DESCRIPTION: Middle-age male lying in bed in no distress RESPIRATORY SYSTEM: Unlabored breathing , decreased breath sounds at bases HEART: S1 S2 regular rate and rhythm , ABDOMEN: Soft , mild distention and left lower quadrant tenderness EXTREMITIES: No edema feet - Labs CBC & Chem 7: 01/16/24 11:23 01/14/24 06:51 Labs: Abnormal Lab Results - Last 24 Hours (Table) 01/16/24 Range/Units 05:55 WBC 17.26 H (4.50-10.00) X 10*3/uL RBC 4.36 L (4.40-5.60) X 10*6/uL Hgb 12.6 L (13.0-17.0) g/dL Hct 36.9 L (39.6-50.0) % Immature Gran # 0.17 H (0.00-0.04) X 10*3/uL Neutrophils # 13.89 H (1.80-7.70) X 10*3/uL Monocytes # 1.42 H (0.20-1.00) X 10*3/uL Microbiology - Last 24 Hours (Table) 01/12/24 19:46 Stool Culture - Final Stool 01/12/24 15:35 Blood Culture - Preliminary Blood 01/12/24 15:50 Blood Culture - Preliminary Blood Assessment and Plan (1) Diverticulitis Current Visit: Yes Status: Acute Code(s): K57.92 - DVTRCLI OF INTEST, PART UNSP, W/O PERF OR ABSCESS W/O BLEED SNOMED Code(s): 425873021 (2) Sepsis Current Visit: Yes Status: Acute Code(s): A41.9 - SEPSIS, UNSPECIFIED ORGANISM SNOMED Code(s): 71141394 Plan: 1patient presented to hospital with sepsis in this patient who did have a fever tachycardia elevated white count presenting with abdominal pain sources include uncomplicated diverticulitis as no mention of any abscess on the CT the likely organism need to cover with enteric gram-negative both aerobes and anaerobes 2-patient fever pattern has improved however noticed to have worsening of his white count no worsening abdominal pain CT abdominal pelvis has been ordered results will be followed continue with the Zosyn questions answered Dictation was produced using [employer] dictation software. please excuse any grammatical, word or spelling errors. Time with Patient: Less than 30
[2024-01-16 12:23] LABS: ALT 28 U/L (4-49); AST 38 U/L (17-59); African American GFR (CKD) >90 (>60 ml/min/1.73 sqM); Albumin 2.7 g/dL (3.5-5.0); Alkaline Phosphatase 138 U/L (38-126); Anion Gap 8 mmol/L; Blood Urea Nitrogen 12 mg/dL (9-20); Calcium 7.8 mg/dL (8.4-10.2); Carbon Dioxide 24 mmol/L (22-30); Chloride 103 mmol/L (98-107); Globulin 2.8 g/dL; Glucose 93 mg/dL (74-99); Non-African American GFR(CKD) >90 (>60 ml/min/1.73 sqM); Potassium 3.7 mmol/L (3.5-5.1); Sodium 135 mmol/L (137-145); Total Bilirubin 1.9 mg/dL (0.2-1.3); Total Protein 5.5 g/dL (6.3-8.2)
[2024-01-16] MEDS: IOPAMIDOL CONTRAST (ORAL USE) VIAL PO PRN (12:50)
[2024-01-16] MEDS: LACTATED RINGERS 1,000 ML IV SCH (12:50)
--- NOTE | 2024-01-16 15:02 | CT ---
EXAMINATION: CT ABDOMEN AND PELVIS WITH IV CONTRAST DATE OF EXAMINATION: 01/16/2024. COMPARISON: 01/12/2024.. INDICATION: Abdominal pain. PROCEDURE: Axial CT of the abdomen and pelvis was performed with contrast and sagittal and coronal reformatted images were performed. CT dose lowering techniques were used, to include: automated expos ure control, adjustment for patient size, and/or use of iterative reconstruction. 100 mL of Isovue-37 0 was given intravenously. FINDINGS: LOWER CHEST : The visualized lung bases are clear. There are no pleural or pericardial effusions. ABDOMEN: Liver and Biliary system: There is some differential enhancement within the right lobe of the liver which appears to show some intrahepatic portal venous thrombosis is likely related to a transient hep atic attenuation deficit. The liver otherwise appears unremarkable. There does appear to be a small a mount of ascites around the liver as well.. Adrenal glands: Normal. Kidneys and ureters: Normal. Spleen: Normal. Pancreas: Normal. Gallbladder: Normal. Lymph nodes, Peritoneum and mesentery: There is no mesenteric or retroperitoneal lymphadenopathy. Th ere is a new fluid collection seen along the anterior abdomen that measures approximately 10 cm in cr aniocaudal dimension, 4.1 cm in horizontal dimension and 3 cm in AP dimension at this may represent a developing abscess. Gastrointestinal tract: Multiple dilated loops of small bowel are seen throughout the abdomen and pe lvic region where there is narrowing of the small bowel and decompression within the right lower quad rant where there is some small bowel wall thickening which is compatible with obstruction. There is slight worsening of the diverticulitis involving the sigmoid colon with significant diverticulosis th roughout the descending and sigmoid colon also noted. Small sliding hiatal hernia. Aorta/IVC: Moderate vascular calcification is seen throughout the abdominal aorta without evidence of aneurysmal dilation or dissection. IVC normal. Abdominal wall: Normal. PELVIS: Fluid: There is no free fluid in the pelvis. Lymph Nodes: There is no pelvic or inguinal lymphadenopathy.. Urinary bladder: Normal. BONES: There are no osseous destructive lesions.. ADDITIONAL SIGNIFICANT FINDINGS: None. IMPRESSION: 1. Slight worsening of the diverticulitis involving the sigmoid colon. Follow-up to resolution is rec ommended as an underlying mass is not excluded. 2. New fluid collection and air-fluid level external to the bowel adjacent to some small bowel wall t hickening and may extend to the sigmoid colon and diverticulitis region as this may represent a devel oping abscess. There is also a small focus of extraluminal air in this region as this may relate to a small perforation. 3. Suspect a small amount of intrahepatic portal vein thrombus within the right lobe of the liver suze cribed above. 4. Small hiatal hernia. 5. New small bowel obstruction as above. The ordering physician was not available at the time of dictation and these critical findings were di scussed with the patient's nurse taking care of the patient and it was going to immediately notify e physician.
[2024-01-16 18:27] LABS: INR 1.1 (<1.2); Prothrombin Time 11.6 sec (10.0-12.5)
[2024-01-17 08:37] LABS: Basophils # (A) 0.06 X 10*3/uL (0.00-0.10); Basophils % (A) 0.3 %; Eosinophils # (A) 0.37 X 10*3/uL (0.04-0.35); Eosinophils % (A) 1.8 %; HCT 35.1 % (39.6-50.0); Lymphocytes # (A) 1.57 X 10*3/uL (0.90-5.00); Lymphocytes % (A) 7.7 %; MCH 29.1 pg (27.0-32.0); MCHC 34.2 g/dL (32.0-37.0); Mean Platelet Volume 11.3 FL (9.5-12.2); Monocytes # (A) 1.42 X 10*3/uL (0.20-1.00); NRBC Per 100 WBC 0 X 10*3/uL (0.00-0.01); Neutrophils # (A) 16.74 X 10*3/uL (1.80-7.70); Neutrophils % (A) 82.2 %; Platelet Count 213 X 10*3/uL (140-440); RBC 4.13 X 10*6/uL (4.40-5.60); RDW 14.3 % (11.5-14.5); WBC 20.37 X 10*3/uL (4.50-10.00)
--- NOTE | 2024-01-17 11:14 | P.PN ---
Subjective Progress Note Date: 01/17/24 (Delayed charting seen at 0845) Patient is a 53-year-old man with no known past medical history who initially presented with complaints of abdominal pain. In the emergency department he underwent an extensive evaluation. Initial vitals were remarkable for Tmax of 103.1 and a heart rate of 126. Initial laboratory analysis was remarkable for white blood cell count of 13.6, bilirubin 2.8. CT abdomen and pelvis demonstrated sigmoid diverticulitis with inability to rule out underlying mass. Influenza A/B/RSV/COVID-19 testing was negative. He received 2 L of IV fluid in the emergency and in the emergency department with some improvements in his blood pressure and heart rate. He was admitted for further monitoring. Surgery was consulted. Patient was noted to have sustained atrial tachycardia and subsequently cardiology was consulted. Echocardiogram was obtained which showed normal size ventricles with ejection fraction 55% and no significant wall motion abnormalities. Cardiology recommended continuing care for his diverticulitis. He was being followed by infectious disease and surgery. His white blood cell count continued to increase and on 01/16/[address] abdomen and pelvis was performed which demonstrated worsening of the diverticulitis that is involving the sigmoid colon with new fluid collection with air-fluid levels next to the sigmoid colon with small amount of intra hepatic portal vein thrombus. IR was consultded for drainage of abscess. Patient seen and examined at bedside. Abdominal pain is improving but still present, had 2 bowel movements this morning that were mostly liquid. No nausea, still with abdominal distension. Vital signs reviewed General: Nontoxic, no distress, appears at stated age Cardiovascular: S1S2 reg, no murmur Lungs: CTA bilateral, no rhonchi, no rales, no accessory muscle use Abdominal: Soft, +tender to palpation diffusely, no guarding Ext: No gross muscle atrophy, no edema b/l lower extremities, no contractures Neuro: CN II-XI grossly intact, no focal neuro deficits Psych: Alert, oriented, appropriate affect Assessment/Plan: Sigmoid diverticulitis with sepsis pericolonic abscess with possibel perforation Underlying mass not excluded - Surgery recs reviewed: IR guided drainage - Await IR drainage - Zosyn 3.375 g IVPB q 8 hours D # 3 - LR at 75 cc/hr -ESR, CRP are elevated at 51 and 35, Stool lactoferrin + -Stool culture, negative -FOBT, negative - NPO - pain control with morphine 4 mg IVP q 4 horus prn pain, ultram for mild pain Atrial tachycardia - cardio signed off, echo with EF 55% Imaging: None new Data Review: Labs reviewed from today include CBC which are remarkable from WBC 20.37, Hgb 12 tMax in the last 24 hours is 100.1 DVT prophylaxis: add lovenox in AM Anticipated discharge date: Pending clinical course Anticipated discharge place: Pending clinical course This dictation was prepared using [employer] voice recognition software. Though every attempt is made to correct errors during dictation some may still exist. Objective - Vital Signs Vital signs: Vital Signs Temp 99.8 F H 01/17/24 10:06 Pulse 91 01/17/24 10:06 Resp 18 01/17/24 10:06 BP 124/85 01/17/24 10:06 Pulse Ox 98 01/17/24 10:06 FiO2 Intake & Output 01/16/24 01/17/24 01/17/24 18:59 06:59 18:59 Other: Voiding Method Toilet # Voids 3 - Labs CBC & Chem 7: 01/17/24 05:30 01/16/24 11:23 Labs: Abnormal Lab Results - Last 24 Hours (Table) 01/16/24 01/16/24 01/17/24 Range/Units 11:23 11:23 05:30 WBC 16.6 H 20.37 H (3.8-10.6) k/uL RBC 4.13 L (4.40-5.60) X 10*6/uL Hgb 12.0 L (13.0-17.0) g/dL Hct 35.1 L (39.6-50.0) % Immature Gran # 0.21 H (0.00-0.04) X 10*3/uL Neutrophils # 13.9 H 16.74 H (1.3-7.7) k/uL Monocytes # 1.42 H (0.20-1.00) X 10*3/uL Eosinophils # 0.37 H (0.04-0.35) X 10*3/uL Sodium 135 L (137-145) mmol/L Calcium 7.8 L (8.4-10.2) mg/dL Total Bilirubin 1.9 H (0.2-1.3) mg/dL Alkaline Phosphatase 138 H (38-126) U/L Total Protein 5.5 L (6.3-8.2) g/dL Albumin 2.7 L (3.5-5.0) g/dL Microbiology - Last 24 Hours (Table) 01/12/24 19:46 Stool Culture - Final Stool
--- NOTE | 2024-01-17 11:42 | P.PN ---
Subjective Progress Note Date: 01/17/24 CHIEF COMPLAINT: Diverticulitis HISTORY OF PRESENT ILLNESS: Patient complains of left lower quadrant abdominal pain. Patient did have increase in pain last night he rated about a 9 out of 10. Pain today is currently similar to yesterday's pain about a 5-6 out of 10. He did have a low-grade temp of 100 last night has been mildly tachycardic heart rate 104. CT scan of abdomen pelvis yesterday had shown fluid collection concerns for developing abscess. Patient to be evaluated by interventional radi ology for possible drain placement. WBC is up from 16.6-20.37 PHYSICAL EXAM: VITAL SIGNS: Reviewed. GENERAL: Well-developed in no acute distress. ABDOMEN: Soft. Mildly distended. More tender in the left lower quadrant with palpation NEUROLOGIC: Alert and oriented. Cranial nerves II through XII grossly intact. ASSESSMENT: 1. Acute sigmoid diverticulitis PLAN: -Continue to monitor patient closely. Patient may require surgical intervention. -Patient scheduled to be evaluated by IR service for possible drain placement -Continue antibiotics -Diet downgraded to n.p.o. due to increased abdominal pain Physician Pyrotechnician note has been reviewed by physician. Signing provider agrees with the documented findings, assessment, and plan of care. I have personally seen and examined the patient, reviewed the HUSBANDRY TECHNICIAN /PAs history, exam and MDM and agree with the assessment and plan as written. Based on total visit time, I have performed more than 50% of the visit. As above: Patient had drain placed earlier today. Films reviewed with radiology. Drain appears to be in a good location. Purulent fluid in the drain. Says he feels better after the drain was placed. Fairly decent output a t least 2 to 300 cc. Continue antibiotics. Follow cultures. Will follow closely. Objective - Vital Signs Vital signs: Vital Signs Temp 99.8 F H 01/17/24 10:06 Pulse 99 01/17/24 11:10 Resp 16 01/17/24 11:10 BP 122/65 01/17/24 11:10 Pulse Ox 99 01/17/24 11:10 FiO2 Intake & Output 01/16/24 01/17/24 01/17/24 18:59 06:59 18:59 Other: Voiding Method Toilet # Voids 3 - Labs CBC & Chem 7: 01/17/24 05:30 01/16/24 11:23 Labs: Abnormal Lab Results - Last 24 Hours (Table) 01/16/24 01/16/24 01/17/24 Range/Units 11:23 11:23 05:30 WBC 16.6 H 20.37 H (3.8-10.6) k/uL RBC 4.13 L (4.40-5.60) X 10*6/uL Hgb 12.0 L (13.0-17.0) g/dL Hct 35.1 L (39.6-50.0) % Immature Gran # 0.21 H (0.00-0.04) X 10*3/uL Neutrophils # 13.9 H 16.74 H (1.3-7.7) k/uL Monocytes # 1.42 H (0.20-1.00) X 10*3/uL Eosinophils # 0.37 H (0.04-0.35) X 10*3/uL Sodium 135 L (137-145) mmol/L Calcium 7.8 L (8.4-10.2) mg/dL Total Bilirubin 1.9 H (0.2-1.3) mg/dL Alkaline Phosphatase 138 H (38-126) U/L Total Protein 5.5 L (6.3-8.2) g/dL Albumin 2.7 L (3.5-5.0) g/dL Microbiology - Last 24 Hours (Table) 01/12/24 19:46 Stool Culture - Final Stool
--- NOTE | 2024-01-17 14:03 | CT ---
EXAMINATION TYPE: CT-guided abscess drainage with pigtail catheter placement. DATE OF EXAM: 01/17/2024 12:29 PM CLINICAL INDICATION:Male, 53 years old with history of abdominal abscess; abdominal abscess, [facility] COMPARISON: CT TECHNIQUE: CT-guided abscess drainage with pigtail catheter placement. CT DLP: 1457.0 mGycm, Automated exposure control for dose reduction was used. ATTENDING: Aaron Bird D.O. PROCEDURE: Informed consent was obtained. Initial CT localizer images were taken which showed safest allowable access to the fluid collection. The patient was prepped, draped in the usual sterile fashion, and locally anesthetized. A access cat heter was inserted into the left abdominal fluid collection. Over 0.038 Bentson guidewire exchange a n 8.5 greek pig tail catheter was placed. Approximately 10 mL of purulent was drained and sent to the lab for analysis. A vacuum drainage bag was then attached the catheter. There was no blood loss and post-procedure hemostasis was achieved. The patient tolerated the procedure well without complication. [facility] was [facility] in stable condition. IMPRESSION: CT guided placement of a percutaneous pigtail drainage catheter.
--- NOTE | 2024-01-17 16:18 | P.PN ---
Subjective Progress Note Date: 01/17/24 Principal diagnosis: Reason for follow-up is sepsis and diverticulitis Patient is a 53-year-old male with no significant past medical history currently everyday smoker patient presenting to the hospital for evaluation of abdominal pain, patient has been diagnosed with diverticulitis without any perforation, repeat CT did shows significant changes and concerning for an abscess.Patient is status post CT-guided drainage of the intra-abdominal abscess completed on 01/17/2024. On today's evaluation that is 01/17/2024, the patient did have improvement in his fever dependent and did have a low-grade fever of 99.8 this morning, the patient is on room air and breathing comfortably, the Pt denies having any chest pain or cough, the patient abdominal pain has decreased in intensity denies any nausea or vomiting. Patient white count is 20.37 creatinine 0.71 blood culture so far pending Objective - Vital Signs Vital signs: Vital Signs Temp 99.8 F H 01/17/24 10:06 Pulse 91 01/17/24 10:06 Resp 18 01/17/24 10:06 BP 124/85 01/17/24 10:06 Pulse Ox 98 01/17/24 10:06 FiO2 Intake & Output 01/16/24 01/17/24 01/17/24 18:59 06:59 18:59 Other: Voiding Method Toilet # Voids 3 - Exam GENERAL DESCRIPTION: Middle-age male lying in bed in no distress RESPIRATORY SYSTEM: Unlabored breathing , decreased breath sounds at bases HEART: S1 S2 regular rate and rhythm , ABDOMEN: Soft , mild distention and left lower quadrant tenderness EXTREMITIES: No edema feet - Labs CBC & Chem 7: 01/17/24 05:30 01/16/24 11:23 Labs: Abnormal Lab Results - Last 24 Hours (Table) 01/16/24 01/16/24 01/17/24 Range/Units 11:23 11:23 05:30 WBC 16.6 H 20.37 H (3.8-10.6) k/uL RBC 4.13 L (4.40-5.60) X 10*6/uL Hgb 12.0 L (13.0-17.0) g/dL Hct 35.1 L (39.6-50.0) % Immature Gran # 0.21 H (0.00-0.04) X 10*3/uL Neutrophils # 13.9 H 16.74 H (1.3-7.7) k/uL Monocytes # 1.42 H (0.20-1.00) X 10*3/uL Eosinophils # 0.37 H (0.04-0.35) X 10*3/uL Sodium 135 L (137-145) mmol/L Calcium 7.8 L (8.4-10.2) mg/dL Total Bilirubin 1.9 H (0.2-1.3) mg/dL Alkaline Phosphatase 138 H (38-126) U/L Total Protein 5.5 L (6.3-8.2) g/dL Albumin 2.7 L (3.5-5.0) g/dL Microbiology - Last 24 Hours (Table) 01/12/24 19:46 Stool Culture - Final Stool Assessment and Plan (1) Diverticulitis Current Visit: Yes Status: Acute Code(s): K57.92 - DVTRCLI OF INTEST, PART UNSP, W/O PERF OR ABSCESS W/O BLEED SNOMED Code(s): 814728083 (2) Sepsis Current Visit: Yes Status: Acute Code(s): A41.9 - SEPSIS, UNSPECIFIED ORGANISM SNOMED Code(s): 55332997 Plan: 1patient presented to hospital with sepsis in this patient who did have a fever tachycardia elevated white count presenting with abdominal pain sources include uncomplicated diverticulitis as no mention of any abscess on the CT the likely organism need to cover with enteric gram-negative both aerobes and anaerobes 2-patient is status post CT-guided drainage of intra-abdominal abscess cultures will be followed patient to continue with Zosyn along with bowel rest family at the bedside question concern answered Dictation was produced using [employer] dictation software. please excuse any grammatical, word or spelling errors. Time with Patient: Less than 30
[2024-01-18 08:51] LABS: BUN/Creat Ratio 14.86 Ratio (12.00-20.00); Blood Urea Nitrogen 10.4 mg/dL (9.0-27.0); Calcium 8.4 mg/dL (8.7-10.3); Carbon Dioxide 25.5 mmol/L (21.6-31.8); Chloride 100 mmol/L (96-109); Glucose 85 mg/dL (70-110); Potassium 3.5 mmol/L (3.5-5.5); Sodium 138 mmol/L (135-145)
[2024-01-18 09:39] LABS: HGB 13.3 g/dL (13.0-17.0); MCH 29.2 pg (27.0-32.0); MCHC 33.3 g/dL (32.0-37.0); MCV 87.7 FL (80.0-97.0); NRBC Per 100 WBC 0 X 10*3/uL (0.00-0.01); Platelet Count 330 X 10*3/uL (140-440); RBC 4.56 X 10*6/uL (4.40-5.60); RDW 14.5 % (11.5-14.5); WBC 15.73 X 10*3/uL (4.50-10.00)
--- NOTE | 2024-01-18 12:09 | P.PN ---
Subjective Progress Note Date: 01/18/24 (delayed charting seen at 0845) Patient is a 53-year-old man with no known past medical history who initially presented with complaints of abdominal pain. In the emergency department he underwent an extensive evaluation. Initial vitals were remarkable for Tmax of 103.1 and a heart rate of 126. Initial laboratory analysis was remarkable for white blood cell count of 13.6, bilirubin 2.8. CT abdomen and pelvis demonstrated sigmoid diverticulitis with inability to rule out underlying mass. Influenza A/B/RSV/COVID-19 testing was negative. He received 2 L of IV fluid in the emergency and in the emergency department with some improvements in his blood pressure and heart rate. He was admitted for further monitoring. Surgery was consulted. Patient was noted to have sustained atrial tachycardia and subsequently cardiology was consulted. Echocardiogram was obtained which showed normal size ventricles with ejection fraction 55% and no significant wall motion abnormalities. Cardiology recommended continuing care for his diverticulitis. He was being followed by infectious disease and surgery. His white blood cell count continued to increase and on 01/16/[address] abdomen and pelvis was performed which demonstrated worsening of the diverticulitis that is involving the sigmoid colon with new fluid collection with air-fluid levels next to the sigmoid colon with small amount of intra hepatic portal vein thrombus. IR was consultded for drainage of abscess. Patient seen and examined at bedside. Patient seen and examined at bedside. He reports that he is feeling much better than yesterday. Abdominal pain is improved after having his drain placed. He states he had his had quite a bit of output. No other complaints currently. Vital signs reviewed General: Nontoxic, no distress, appears at stated age Cardiovascular: S1S2 reg, no murmur Lungs: CTA bilateral, no rhonchi, no rales, no accessory muscle use Abdominal: Soft, +tender to palpation diffusely, no guarding Ext: No gross muscle atrophy, no edema b/l lower extremities, no contractures Neuro: CN II-XI grossly intact, no focal neuro deficits Psych: Alert, oriented, appropriate affect Assessment/Plan: Sigmoid diverticulitis with sepsis pericolonic abscess with possible perforation s/p IR guided drainage with drain inplace Underlying mass not excluded Possible portal vein thrombus - await abscess culture - Surgery recs reviewed:await cultures -Case discussed with both hematology and general surgery nurse practitioner. Hematology is unsure if there is a true portal vein thrombus. They plan on discussing with radiology. If there is and it is not related to malignancy he will need 3 months of anticoagulation. If this is required I will discuss with surgery as they are still unsure whether or not the patient will require surgical intervention for this diverticulitis. So may need heparin versus direct oral anticoagulant. - Zosyn 3.375 g IVPB q 8 hours D # 4 - LR at 75 cc/hr -ESR, CRP are elevated at 51 and 35, Stool lactoferrin + -Stool culture, negative -FOBT, negative - Clear liquid diet - pain control with morphine 4 mg IVP q 4 horus prn pain, ultram for mild pain Atrial tachycardia - cardio signed off, echo with EF 55% Imaging: None new Data Review: Fluid culture showing gram-negative bacilli Labs reviewed from today include CBC and basic metabolic profile which are remarkable for white blood cell count 15.73 tMax in the last 24 hours is 100 DVT prophylaxis: add lovenox in AM Anticipated discharge date: Pending clinical course Anticipated discharge place: Pending clinical course This dictation was prepared using [employer] voice recognition software. Though every attempt is made to correct errors during dictation some may still exist. Objective - Vital Signs Vital signs: Vital Signs Temp 99.2 F 01/18/24 07:28 Pulse 83 01/18/24 07:28 Resp 16 01/18/24 07:28 BP 123/72 01/18/24 07:28 Pulse Ox 97 01/18/24 07:28 FiO2 Intake & Output 01/17/24 01/18/24 01/18/24 18:59 06:59 18:59 Intake Total 200 Output Total 125 Balance 200 -125 Intake: Intake, IV Titration 200 Amount Piperacillin-Tazobactam 3 200 .375 gm In Sodium Chloride 0.9% 100 ml @ 25 mls/hr IVPB Q8HR [facility] Rx# :[id number] Output: Drainage 125 Left Lower Abdomen 125 Other: Voiding Method Toilet # Voids 2 - Labs CBC & Chem 7: 01/18/24 05:54 01/18/24 05:54 Labs: Abnormal Lab Results - Last 24 Hours (Table) 01/18/24 01/18/24 Range/Units 05:54 05:54 WBC 15.73 H (4.50-10.00) X 10*3/uL Anion Gap 12.50 H (4.00-12.00) mmol/L Calcium 8.4 L (8.7-10.3) mg/dL Microbiology - Last 24 Hours (Table) 01/17/24 11:45 Gram Stain - Preliminary Aspirate Body Fluid Culture - Preliminary Gram Neg Bacilli 01/12/24 15:35 Blood Culture - Final Blood 01/12/24 15:50 Blood Culture - Final Blood
--- NOTE | 2024-01-18 12:18 | P.CONS ---
History of Present Illness - Reason for Consult Consult date: 01/18/24 portsl vein thrombosis Requesting physician: Xiomara Dunbar - Chief Complaint abd pain - History of Present Illness Mr. Longoria is a 53-year-old male we have been asked to see regarding findings on CT of the abdomen and pelvis, suspicious for intrahepatic thrombus. Patient is currently admitted with diverticulitis, he has had a drain placed for abscess. Patient denies any prior history of blood clots, COVID infections, unintentional weight loss, EtOH abuse, there is no family history of blood disorders. Patient denies ever having routine colonoscopy screening. He denies any constitutional symptoms. He is not in any acute pain, specifically in the upper quadrants. He can tolerate oral intake, no nausea or vomiting. Review of Systems 10 point review of systems is negative except as stated in HPI Past Medical History Past Medical History: No Reported History History of Any Multi-Drug Resistant Organisms: None Reported Past Surgical History: Orthopedic Surgery Additional Past Surgical History / Comment(s): sternum surgery as a teenager Past Psychological History: No Psychological Hx Reported Smoking Status: Current every day smoker Past Alcohol Use History: Rare Past Drug Use History: None Reported Additional History: Patient denies any family history of blood clotting disorders Medications and Allergies Home Medications Medication Instructions Recorded Confirmed Type Cholecalciferol (Vitamin D3) 50 mcg PO DAILY 01/12/24 01/12/24 History [Vitamin D3 (50 Mcg = 2000 Iu)] Allergies Allergy/AdvReac Type Severity Reaction Status Date / Time No Known Allergies Allergy Verified 01/12/24 14:16 Physical Exam Vitals: Vital Signs Temp Pulse Resp BP Pulse Ox 01/18/24 07:28 99.2 F 83 16 123/72 97 01/18/24 01:06 98.1 F 82 13 113/68 99 01/17/24 19:50 100.0 F H 91 14 123/74 97 01/17/24 14:02 98.9 F 83 16 120/77 95 01/17/24 14:00 98.9 F 85 15 120/73 97 01/17/24 11:35 99 16 134/71 98 01/17/24 11:25 101 H 16 119/75 98 01/17/24 11:10 99 16 122/65 99 01/17/24 10:06 99.8 F H 91 18 124/85 98 Intake and Output 01/17/24 01/18/24 01/18/24 22:59 06:59 14:59 Intake Total 200 Output Total 125 Balance 200 -125 Intake: Intake, IV Titration 200 Amount Piperacillin-Tazobactam 3 200 .375 gm In Sodium Chloride 0.9% 100 ml @ 25 mls/hr IVPB Q8HR [facility] Rx# :[id number] Output: Drainage 125 Left Lower Abdomen 125 Other: # Voids 2 - Constitutional General appearance: average body habitus, cooperative, no acute distress - EENT Eyes: anicteric sclerae, EOMI ENT: hearing grossly normal, normal oropharynx - Neck Neck: no lymphadenopathy - Respiratory Respiratory: bilateral: CTA - Cardiovascular Rhythm: regular Heart sounds: normal: S1, S2 Abnormal Heart Sounds: no systolic murmur, no diastolic murmur, no rub, no S3 Gallop, no S4 Gallop, no click, no other leg Peripheral Edema: bilateral: None - Gastrointestinal General gastrointestinal: no absent bowel sounds, no decreased bowel sounds, no distended, no hepatomegaly, no hyperactive bowel sounds, normal bowel sounds, no organomegaly, no rigid, no scaphoid, soft, no splenomegaly, tenderness (Mild, left lower quadrant, near drain tube), no umbilical hernia, no ventral hernia - Integumentary Integumentary: normal - Neurologic Neurologic: CNII-XII intact - Musculoskeletal Musculoskeletal: strength equal bilaterally - Psychiatric Psychiatric: A&O x's 3, appropriate affect, intact judgment & insight Results CBC & Chem 7: 01/18/24 05:54 01/18/24 05:54 Labs: Abnormal Lab Results - Last 24 Hours (Table) 01/18/24 Range/Units 05:54 Anion Gap 12.50 H (4.00-12.00) mmol/L Calcium 8.4 L (8.7-10.3) mg/dL Microbiology - Last 24 Hours (Table) 01/17/24 11:45 Gram Stain - Preliminary Aspirate 01/12/24 15:35 Blood Culture - Final Blood 01/12/24 15:50 Blood Culture - Final Blood CT scan - abdomen: report reviewed CT scan - pelvis: report reviewed Assessment and Plan Plan: Possible portal vein thrombosis -CTAP report reviewed, suspicious for thrombus. -Gase discussed with Radiologist. Images being reviewed. Will either addend prev report or recommend an image to confirm if there is a thrombus. -Patient has several provoking factors for formation of a thrombus including chronic inflammation from diverticulosis, smoking as well as acute infection with a abscess. -If a intrahepatic thrombus or clot is otherwises confirmed, recommendation would be for 3 months anticoagulation for a provoked blood clot. -Case was discussed with Attending -Further recommendations regarding anticoagulation to follow after imaging. Doctor attests: I performed a history and physical examination of this patient, developed impression and plan of care. Discussed with dictator. I agree with dictators note, documented as a scribe.
--- NOTE | 2024-01-18 12:37 | P.PN ---
Subjective Progress Note Date: 01/18/24 CHIEF COMPLAINT: Diverticulitis HISTORY OF PRESENT ILLNESS: Patient reports decrease in abdominal pain since placement of the drain yesterday. There is 125 mL output through the night. Fluid color is currently more serous looking. He denies any nausea or vomiting. He did have a low-grade temp of 100 during the night. Tachycardia resolved. WBC is down from 20-15.73. Patient reports having loose stools. Possible portal vein thrombus evaluated by hematology service. Awaiting their recommendations regarding anticoagulation. Patient reporting he is feeling anxious and requesting medication for anxiety. Case discussed with medicine service. PHYSICAL EXAM: VITAL SIGNS: Reviewed. GENERAL: Well-developed in no acute distress. ABDOMEN: Soft. Nondistended. Minimal tenderness with palpation left lower quadrant. Drain in place. NEUROLOGIC: Alert and oriented. Cranial nerves II through XII grossly intact. ASSESSMENT: 1. Acute sigmoid diverticulitis PLAN: -Agree with advancing diet to clear liquids -Continue antibiotics -Encourage patient to ambulate -Anxiety medication per medicine service Physician Public Policy Associate note has been reviewed by physician. Signing provider agrees with the documented findings, assessment, and plan of care. Objective - Vital Signs Vital signs: Vital Signs Temp 99.2 F 01/18/24 07:28 Pulse 83 01/18/24 07:28 Resp 16 01/18/24 07:28 BP 123/72 01/18/24 07:28 Pulse Ox 97 01/18/24 07:28 FiO2 Intake & Output 01/17/24 01/18/24 01/18/24 18:59 06:59 18:59 Intake Total 200 Output Total 125 Balance 200 -125 Intake: Intake, IV Titration 200 Amount Piperacillin-Tazobactam 3 200 .375 gm In Sodium Chloride 0.9% 100 ml @ 25 mls/hr IVPB Q8HR [facility] Rx# :[id number] Output: Drainage 125 Left Lower Abdomen 125 Other: Voiding Method Toilet # Voids 2 - Labs CBC & Chem 7: 01/18/24 05:54 01/18/24 05:54 Labs: Abnormal Lab Results - Last 24 Hours (Table) 01/18/24 01/18/24 Range/Units 05:54 05:54 WBC 15.73 H (4.50-10.00) X 10*3/uL Anion Gap 12.50 H (4.00-12.00) mmol/L Calcium 8.4 L (8.7-10.3) mg/dL Microbiology - Last 24 Hours (Table) 01/17/24 11:45 Gram Stain - Preliminary Aspirate Body Fluid Culture - Preliminary Gram Neg Bacilli 01/12/24 15:35 Blood Culture - Final Blood 01/12/24 15:50 Blood Culture - Final Blood
[2024-01-18 12:51] VITALS: BMI 23.1
[2024-01-18] MEDS: LORazepam 1 MG TAB PO STA (14:16)
--- NOTE | 2024-01-18 14:34 | P.PN ---
Subjective Progress Note Date: 01/18/24 Principal diagnosis: Reason for follow-up is sepsis and diverticulitis Patient is a 53-year-old male with no significant past medical history currently everyday smoker patient presenting to the hospital for evaluation of abdominal pain, patient has been diagnosed with diverticulitis without any perforation, repeat CT did shows significant changes and concerning for an abscess.Patient is status post CT-guided drainage of the intra-abdominal abscess completed on 01/17/2024. On today's evaluation that is 01/18/2024, Patient is afebrile this morning, patient is currently on room air and denies having any shortness of breath, the patient denies any chest pain or cough, the patient denies any nausea vomiting abdominal pain has decreased in intensity still has significant output in the drainage catheter. Patient white count is 15.73 less than yesterday creatinine 0.7 abdominal cultures growing gram-negative bacilli Objective - Vital Signs Vital signs: Vital Signs Temp 99.2 F 01/18/24 07:28 Pulse 83 01/18/24 07:28 Resp 16 01/18/24 07:28 BP 123/72 01/18/24 07:28 Pulse Ox 97 01/18/24 07:28 FiO2 Intake & Output 01/17/24 01/18/24 01/18/24 18:59 06:59 18:59 Intake Total 200 Output Total 125 Balance 200 -125 Weight 83.915 kg Intake: Intake, IV Titration 200 Amount Piperacillin-Tazobactam 3 200 .375 gm In Sodium Chloride 0.9% 100 ml @ 25 mls/hr IVPB Q8HR [facility] Rx# :[id number] Output: Drainage 125 Left Lower Abdomen 125 Other: Voiding Method Toilet # Voids 2 - Exam GENERAL DESCRIPTION: Middle-age male lying in bed in no distress RESPIRATORY SYSTEM: Unlabored breathing , decreased breath sounds at bases HEART: S1 S2 regular rate and rhythm , ABDOMEN: Soft , mild distention and left lower quadrant tenderness EXTREMITIES: No edema feet - Labs CBC & Chem 7: 01/18/24 05:54 01/18/24 05:54 Labs: Abnormal Lab Results - Last 24 Hours (Table) 01/18/24 01/18/24 Range/Units 05:54 05:54 WBC 15.73 H (4.50-10.00) X 10*3/uL Anion Gap 12.50 H (4.00-12.00) mmol/L Calcium 8.4 L (8.7-10.3) mg/dL Microbiology - Last 24 Hours (Table) 01/17/24 11:45 Gram Stain - Preliminary Aspirate Body Fluid Culture - Preliminary Gram Neg Bacilli 01/12/24 15:35 Blood Culture - Final Blood 01/12/24 15:50 Blood Culture - Final Blood Assessment and Plan (1) Diverticulitis Current Visit: Yes Status: Acute Code(s): K57.92 - DVTRCLI OF INTEST, PART UNSP, W/O PERF OR ABSCESS W/O BLEED SNOMED Code(s): 033638277 (2) Sepsis Current Visit: Yes Status: Acute Code(s): A41.9 - SEPSIS, UNSPECIFIED ORGANISM SNOMED Code(s): 13743878 Plan: 1patient presented to hospital with sepsis in this patient who did have a fever tachycardia elevated white count presenting with abdominal pain sources include uncomplicated diverticulitis as no mention of any abscess on the CT the likely organism need to cover with enteric gram-negative both aerobes and anaerobes 2-patient is status post CT-guided drainage of intra-abdominal abscess cultures currently growing gram-negative with ID sensitivities pending patient white count is trending down we will continue patient on Zosyn while waiting for the culture to finalize may need outpatient IV antibiotic therapy rn field case manager to look into this coverage Dictation was produced using [employer] dictation software. please excuse any grammatical, word or spelling errors. Time with Patient: Less than 30
--- NOTE | 2024-01-18 16:20 | MR ---
EXAMINATION TYPE: MR liver wo/w con DATE OF EXAM: 01/18/2024 4:09 PM CLINICAL INDICATION:Male, 53 years old with history of confirm/exclude thrombosis; PHH, Confirm/exclu de thrombosis COMPARISON: CT scan abdomen from 01/16/2024.. TECHNIQUE: Multiplanar multi-sequence imaging was performed without contrast. Post contrast imaging was performed. Post IV contrast subtraction images were also submitted for review. IV Contrast: 8.5 cc Gadobutrol FINDINGS: LOWER CHEST: No gross irregularity. ABDOMEN Liver: No evidence for hepatic steatosis or cirrhosis. Vascular filling defects seen on noncontrast T 1-weighted imaging within the right hepatic lobe series 901 image 87 as described below. There is tra nsient signal abnormality within this region on delayed imaging Vascular shunting into the right hepa tic lobe dome near the periphery which is isointense on delayed imaging to background parenchyma. Gallbladder and Bile ducts: No evidence for ductal dilation, or biliary stricture or evidence of chol edocholithiasis. The gallbladder is within normal limits. Pancreas: No ductal dilation. No evidence for solid mass. Spleen: Normal for size. Adrenal glands: Unremarkable. Kidneys: No evidence for obstructive uropathy. No suspicious renal masses. Stomach and Bowel: No evidence for bowel wall thickening or evidence for obstruction. Retroperitoneum/Peritoneum: No evidence of pneumoperitoneum or free fluid. Vasculature: No aortic aneurysm. Filling defect is seen within the right hepatic lobe portal venous s ystem is appreciated on noncontrast T1-weighted imaging series 901 image 87. Musculoskeletal: The osseous structures appear intact. Lymph Nodes: No gross evidence for lymphadenopathy. Abdominal wall: Fluid collection from known percutaneous drainage catheter in the left lower abdomen is partially visualized. No organizing fluid collection in the [id number]. IMPRESSION: Confirmation of thrombus within the right hepatic lobe portal venous system.
[2024-01-18 17:38] LABS: Basophils # (A) 0.1 k/uL (0-0.2); Basophils % (A) 0 %; Eosinophils # (A) 0.2 k/uL (0-0.7); Eosinophils % (A) 1 %; HCT 38.4 % (39.0-53.0); HGB 12.8 gm/dL (13.0-17.5); Lymphocytes # (A) 1.7 k/uL (1.0-4.8); Lymphocytes % (A) 11 %; MCHC 33.3 g/dL (31.0-37.0); MCV 90.3 fL (80.0-100.0); Mean Platelet Volume 8.3; Monocytes # (A) 0.7 k/uL (0-1.0); Monocytes % (A) 4 %; Neutrophils # (A) 12.7 k/uL (1.3-7.7); Neutrophils % (A) 82 %; Platelet Count 355 k/uL (150-450); RBC 4.26 m/uL (4.30-5.90); RDW 13.9 % (11.5-15.5); WBC 15.5 k/uL (3.8-10.6)
[2024-01-18 17:45] LABS: INR 1.1 (<1.2); Partial Thromboplastin Time 24.5 sec (22.0-30.0); Prothrombin Time 11.9 sec (10.0-12.5)
[2024-01-18] MEDS: HEPARIN SODIUM 1,000 UN/ML (10ML VL) IV ONE (17:49)
[2024-01-18] MEDS: HEPARIN SOD,PORK IN 0.45% NACL 25,000 UNIT in 0.45% NACL 1 250ML.BAG IV SCH (18:03)
[2024-01-18] MEDS: hydrOXYzine HCL 25 MG TAB PO PRN (20:51)
[2024-01-19] MEDS: HEPARIN SODIUM 1,000 UN/ML (10ML VL) IV PRN (01:24)
[2024-01-19 11:27] LABS: Basophils # (A) 0.08 X 10*3/uL (0.00-0.10); Basophils % (A) 0.6 %; Eosinophils # (A) 0.21 X 10*3/uL (0.04-0.35); Eosinophils % (A) 1.6 %; HCT 35.3 % (39.6-50.0); HGB 11.6 g/dL (13.0-17.0); Lymphocytes % (A) 15.5 %; MCH 29.1 pg (27.0-32.0); MCHC 32.9 g/dL (32.0-37.0); MCV 88.7 FL (80.0-97.0); Mean Platelet Volume 11.1 FL (9.5-12.2); Monocytes # (A) 1.03 X 10*3/uL (0.20-1.00); Monocytes % (A) 7.6 %; NRBC Per 100 WBC 0 X 10*3/uL (0.00-0.01); Neutrophils % (A) 72.6 %; Platelet Count 332 X 10*3/uL (140-440); RBC 3.98 X 10*6/uL (4.40-5.60); RDW 14.7 % (11.5-14.5); WBC 13.51 X 10*3/uL (4.50-10.00)
--- NOTE | 2024-01-19 11:43 | P.PN ---
Subjective Progress Note Date: 01/19/24 CHIEF COMPLAINT: Diverticulitis HISTORY OF PRESENT ILLNESS: Patient complains of gas pains. He denies any nausea or vomiting. He did report a small bowel movement. He does report some pressure when urinating. But does feel that he is emptying the bladder. Afebrile. WBC is down from 15.5 down to 13.5 Hgb 11.6 platelets 332 patient is on IV heparin for right hepatic portal vein thrombus. Drain with 125 mL serous/purulent output. Culture growing E. coli and Khadra albicans PHYSICAL EXAM: VITAL SIGNS: Reviewed. GENERAL: Well-developed in no acute distress. ABDOMEN: Soft. Mildly distended. Minimal tenderness with palpation left lower quadrant. Drain in place. NEUROLOGIC: Alert and oriented. Cranial nerves II through XII grossly intact. ASSESSMENT: 1. Acute sigmoid diverticulitis PLAN: -Continue full liquid diet -Mylicon gas drops ordered -Antibiotics per infectious disease. Awaiting discharge antibiotic recommendations -Encourage patient to ambulate -Okay to start oral anticoagulation from surgical standpoint Physician Sales Agent [employer] note has been reviewed by physician. Signing provider agrees with the documented findings, assessment, and plan of care. I have personally seen and examined the patient, reviewed the HOSPICE CLINICAL SUPERVISOR /PAs history, exam and MDM and agree with the assessment and plan as written. Based on total visit time, I have performed more than 50% of the visit. As above: Patient's describes feeling nauseous and gassy today. White blood cell count improved. He is afebrile. Cultures noted. Drain is more serous now. He has minimal tenderness. He does appear slightly distended. Abdominal x-ray was performed apparently to rule out free air and that looks okay. Developing ileus possible. Will check follow-up films tomorrow. Continue full liquid diet. Objective - Vital Signs Vital signs: Vital Signs Temp 98.1 F 01/19/24 07:29 Pulse 67 01/19/24 07:29 Resp 18 01/19/24 07:29 BP 132/74 01/19/24 07:29 Pulse Ox 97 01/19/24 07:29 FiO2 Intake & Output 01/18/24 01/19/24 01/19/24 18:59 06:59 18:59 Intake Total 75.856 Balance 75.856 Weight 83.915 kg Intake: Intake, IV Titration 75.856 Amount Heparin Sod,Pork in 0.45% 75.856 NaCl 25,000 unit In 0.45 % NaCl 1 250ml.bag @ 11. 92 UNITS/KG/HR 10.003 mls /hr IV .Q24H [facility] Rx#: [id number] Other: # Voids 3 5 - Labs CBC & Chem 7: 01/19/24 06:55 01/19/24 06:55 Labs: Abnormal Lab Results - Last 24 Hours (Table) 01/18/24 01/19/24 Range/Units 17:21 06:55 WBC 15.5 H (3.8-10.6) k/uL RBC 4.26 L (4.30-5.90) m/uL Hgb 12.8 L (13.0-17.5) gm/dL Hct 38.4 L (39.0-53.0) % Neutrophils # 12.7 H (1.3-7.7) k/uL APTT 31.6 H (22.0-30.0) sec Microbiology - Last 24 Hours (Table) 01/17/24 11:45 Gram Stain - Preliminary Aspirate Body Fluid Culture - Preliminary Gram Neg Bacilli
[2024-01-19 11:51] LABS: BUN/Creat Ratio 13.12 Ratio (12.00-20.00); Blood Urea Nitrogen 10.5 mg/dL (9.0-27.0); Carbon Dioxide 26.5 mmol/L (21.6-31.8); Chloride 102 mmol/L (96-109); Glucose 87 mg/dL (70-110); Potassium 4.2 mmol/L (3.5-5.5); Sodium 139 mmol/L (135-145)
[2024-01-19 11:52] LABS: ALT 44 U/L (10-49); AST 39 U/L (14-35); Albumin 2.9 g/dL (3.8-4.9); Albumin/Globulin Ratio 1.16 Ratio (1.60-3.17); Alkaline Phosphatase 198 U/L (41-126); Globulin 2.5 g/dL (1.6-3.3); Total Bilirubin 0.6 mg/dL (0.3-1.2); Total Protein 5.4 g/dL (6.2-8.2)
[2024-01-19] MEDS: FLUCONAZOLE IN NACL,ISO-OSM 200 MG in SALINE 1 100ML.BAG IVPB SCH (14:02)
[2024-01-19] MEDS: SIMETHICONE 40 MG/0.6 ML DROPS 2,000 MG/30 ML BOTTLE PO SCH (14:02)
[2024-01-19 14:14] LABS: INR 1.18 sec (0.93-1.11); Prothrombin Time 12.6 sec (9.9-11.9)
--- NOTE | 2024-01-19 14:36 | P.PN ---
Subjective Progress Note Date: 01/19/24 (delayed charting seen at 1030) Patient is a 53-year-old man with no known past medical history who initially presented with complaints of abdominal pain. In the emergency department he underwent an extensive evaluation. Initial vitals were remarkable for Tmax of 103.1 and a heart rate of 126. Initial laboratory analysis was remarkable for white blood cell count of 13.6, bilirubin 2.8. CT abdomen and pelvis demonstrated sigmoid diverticulitis with inability to rule out underlying mass. Influenza A/B/RSV/COVID-19 testing was negative. He received 2 L of IV fluid in the emergency and in the emergency department with some improvements in his blood pressure and heart rate. He was admitted for further monitoring. Surgery was consulted. Patient was noted to have sustained atrial tachycardia and subsequently cardiology was consulted. Echocardiogram was obtained which showed normal size ventricles with ejection fraction 55% and no significant wall motion abnormalities. Cardiology recommended continuing care for his diverticulitis. He was being followed by infectious disease and surgery. His white blood cell count continued to increase and on 01/16/[address] abdomen and pelvis was performed which demonstrated worsening of the diverticulitis that is involving the sigmoid colon with new fluid collection with air-fluid levels next to the sigmoid colon with small amount of intra hepatic portal vein thrombus. IR was consulted for drainage of abscess which was completed on 01/17/24. Patient seen and examined at bedside. He is having some abdominal distension. He is having what he feels are gas pain, his stool output has decreased. No chest pain, SOB, nuasea. Vital signs reviewed General: Nontoxic, no distress, appears at stated age Cardiovascular: S1S2 reg, no murmur Lungs: CTA bilateral, no rhonchi, no rales, no accessory muscle use Abdominal: Soft, +tender to palpation diffusely, + distended, no guarding Ext: No gross muscle atrophy, no edema b/l lower extremities, no contractures Neuro: CN II-XI grossly intact, no focal neuro deficits Psych: Alert, oriented, appropriate affect Assessment/Plan: Sigmoid diverticulitis with sepsis E coli and khadra pericolonic abscess with possible perforation s/p IR guided drainage with drain inplace Underlying mass not excluded Portal vein thrombus - d/c heparin gtt start eliquis 10 mg PO BID - Oncology consult reviewed: anticoagulation for provoked clot for 3 months. - Zosyn 3.375 g IVPB q 8 hours D # 5 - ID recs reviewed diflucan 200 mg IVPB daily - surgery recs reviewed: add mylicon drops and full liquid diet - LR at 75 cc/hr -ESR, CRP are elevated at 51 and 35, Stool lactoferrin + -Stool culture, negative -FOBT, negative - Full liquid diet - pain control with morphine 4 mg IVP q 4 horus prn pain, ultram for mild pain Atrial tachycardia - cardio signed off, echo with EF 55% Imaging: ABD x-ray reviewed incresed gas Data Review: Labs reviewed from today include CBC and basic metabolic profile which are remarkable for WBC 13.51 and hgb 11.6 Abscess culture results: E coli and Khadra tMax in the last 24 hours is 100 DVT prophylaxis: add lovenox in AM Anticipated discharge date: Pending clinical course Anticipated discharge place: Pending clinical course This dictation was prepared using [employer] voice recognition software. Though every attempt is made to correct errors during dictation some may still exist. Objective - Vital Signs Vital signs: Vital Signs Temp 98.1 F 01/19/24 07:29 Pulse 67 01/19/24 07:29 Resp 18 01/19/24 07:29 BP 132/74 01/19/24 07:29 Pulse Ox 97 01/19/24 07:29 FiO2 Intake & Output 01/18/24 01/19/24 01/19/24 18:59 06:59 18:59 Intake Total 75.856 Balance 75.856 Weight 83.915 kg Intake: Intake, IV Titration 75.856 Amount Heparin Sod,Pork in 0.45% 75.856 NaCl 25,000 unit In 0.45 % NaCl 1 250ml.bag @ 11. 92 UNITS/KG/HR 10.003 mls /hr IV .Q24H [facility] Rx#: [id number] Other: # Voids 3 5 - Labs CBC & Chem 7: 01/19/24 06:55 01/19/24 06:55 Labs: Abnormal Lab Results - Last 24 Hours (Table) 01/18/24 01/19/24 01/19/24 Range/Units 17:21 06:55 06:55 WBC 15.5 H 13.51 H (3.8-10.6) k/uL RBC 4.26 L 3.98 L (4.30-5.90) m/uL Hgb 12.8 L 11.6 L (13.0-17.5) gm/dL Hct 38.4 L 35.3 L (39.0-53.0) % RDW 14.7 H (11.5-14.5) % Immature Gran # 0.29 H (0.00-0.04) X 10*3/uL Neutrophils # 12.7 H 9.80 H (1.3-7.7) k/uL Monocytes # 1.03 H (0.20-1.00) X 10*3/uL PT (9.9-11.9) sec INR (0.93-1.11) sec APTT (22.0-30.0) sec Calcium 8.0 L (8.7-10.3) mg/dL AST 39 H (14-35) U/L Alkaline Phosphatase 198 H (41-126) U/L Total Protein 5.4 L (6.2-8.2) g/dL Albumin 2.9 L (3.8-4.9) g/dL Albumin/Globulin Ratio 1.16 L (1.60-3.17) Ratio 01/19/24 01/19/24 Range/Units 06:55 06:55 WBC (3.8-10.6) k/uL RBC (4.30-5.90) m/uL Hgb (13.0-17.5) gm/dL Hct (39.0-53.0) % RDW (11.5-14.5) % Immature Gran # (0.00-0.04) X 10*3/uL Neutrophils # (1.3-7.7) k/uL Monocytes # (0.20-1.00) X 10*3/uL PT 12.6 H (9.9-11.9) sec INR 1.18 H (0.93-1.11) sec APTT 31.6 H (22.0-30.0) sec Calcium (8.7-10.3) mg/dL AST (14-35) U/L Alkaline Phosphatase (41-126) U/L Total Protein (6.2-8.2) g/dL Albumin (3.8-4.9) g/dL Albumin/Globulin Ratio (1.60-3.17) Ratio Microbiology - Last 24 Hours (Table) 01/12/24 19:46 Stool Culture - Final Stool 01/17/24 11:45 Gram Stain - Preliminary Aspirate Body Fluid Culture - Preliminary Escherichia coli Khadra albicans
--- NOTE | 2024-01-19 14:53 | XR ---
EXAMINATION TYPE: XR abdomen 1V DATE OF EXAM: 01/19/2024 Comparison: CT 01/16/2024 Clinical History: 53-year-old male with pain, upright abdomen concern for perforation Findings: Dilated small bowel loops up to 4.2 cm with multiple air-fluid levels. Scattered colonic air is prese nt. There is a surgical drain in the left side of the lower abdomen. No free intraperitoneal air is i dentified. Impression: 1. Surgical drain at the left lower abdomen. 2. No free intraperitoneal air is identified at this time. 3. Dilated small bowel loops with air-fluid levels favored to represent ileus given the patient's und erlying diverticulitis and the presence of colonic air. Radiographic follow-up to exclude the develop ment of small bowel obstruction.
--- NOTE | 2024-01-19 15:56 | P.PN ---
Subjective Progress Note Date: 01/19/24 Principal diagnosis: Reason for follow-up is sepsis and diverticulitis Patient is a 53-year-old male with no significant past medical history currently everyday smoker patient presenting to the hospital for evaluation of abdominal pain, patient has been diagnosed with diverticulitis without any perforation, repeat CT did shows significant changes and concerning for an abscess.Patient is status post CT-guided drainage of the intra-abdominal abscess completed on 01/17/2024. On today's evaluation that is 01/19/2024, patient did have resolution of his fever and has been afebrile, patient is breathing comfortably and is currently on room air, patient denies having any significant cough no chest pain shortness of breath, patient denies nausea vomiting abdominal pain has decreased in intensity did have significant output in the drainage catheter. Patient white count is down to 13.51, creatinine 0.8Abdominal culture with E. coli and Khadra albicans Objective - Vital Signs Vital signs: Vital Signs Temp 98.1 F 01/19/24 07:29 Pulse 67 01/19/24 07:29 Resp 18 01/19/24 07:29 BP 132/74 01/19/24 07:29 Pulse Ox 97 01/19/24 07:29 FiO2 Intake & Output 01/18/24 01/19/24 01/19/24 18:59 06:59 18:59 Intake Total 75.856 Balance 75.856 Weight 83.915 kg Intake: Intake, IV Titration 75.856 Amount Heparin Sod,Pork in 0.45% 75.856 NaCl 25,000 unit In 0.45 % NaCl 1 250ml.bag @ 11. 92 UNITS/KG/HR 10.003 mls /hr IV .Q24H [facility] Rx#: [id number] Other: # Voids 3 5 - Exam GENERAL DESCRIPTION: Middle-age male lying in bed in no distress RESPIRATORY SYSTEM: Unlabored breathing , decreased breath sounds at bases HEART: S1 S2 regular rate and rhythm , ABDOMEN: Soft , mild distention and left lower quadrant tenderness EXTREMITIES: No edema feet - Labs CBC & Chem 7: 01/19/24 06:55 01/19/24 06:55 Labs: Abnormal Lab Results - Last 24 Hours (Table) 01/18/24 01/19/24 01/19/24 Range/Units 17:21 06:55 06:55 WBC 15.5 H 13.51 H (3.8-10.6) k/uL RBC 4.26 L 3.98 L (4.30-5.90) m/uL Hgb 12.8 L 11.6 L (13.0-17.5) gm/dL Hct 38.4 L 35.3 L (39.0-53.0) % RDW 14.7 H (11.5-14.5) % Immature Gran # 0.29 H (0.00-0.04) X 10*3/uL Neutrophils # 12.7 H 9.80 H (1.3-7.7) k/uL Monocytes # 1.03 H (0.20-1.00) X 10*3/uL APTT (22.0-30.0) sec Calcium 8.0 L (8.7-10.3) mg/dL AST 39 H (14-35) U/L Alkaline Phosphatase 198 H (41-126) U/L Total Protein 5.4 L (6.2-8.2) g/dL Albumin 2.9 L (3.8-4.9) g/dL Albumin/Globulin Ratio 1.16 L (1.60-3.17) Ratio 01/19/24 Range/Units 06:55 WBC (3.8-10.6) k/uL RBC (4.30-5.90) m/uL Hgb (13.0-17.5) gm/dL Hct (39.0-53.0) % RDW (11.5-14.5) % Immature Gran # (0.00-0.04) X 10*3/uL Neutrophils # (1.3-7.7) k/uL Monocytes # (0.20-1.00) X 10*3/uL APTT 31.6 H (22.0-30.0) sec Calcium (8.7-10.3) mg/dL AST (14-35) U/L Alkaline Phosphatase (41-126) U/L Total Protein (6.2-8.2) g/dL Albumin (3.8-4.9) g/dL Albumin/Globulin Ratio (1.60-3.17) Ratio Microbiology - Last 24 Hours (Table) 01/17/24 11:45 Gram Stain - Preliminary Aspirate Body Fluid Culture - Preliminary Escherichia coli Khadra albicans Assessment and Plan (1) Diverticulitis Current Visit: Yes Status: Acute Code(s): K57.92 - DVTRCLI OF INTEST, PART UNSP, W/O PERF OR ABSCESS W/O BLEED SNOMED Code(s): 185858746 (2) Sepsis Current Visit: Yes Status: Acute Code(s): A41.9 - SEPSIS, UNSPECIFIED ORGANISM SNOMED Code(s): 59631114 Plan: 1patient presented to hospital with sepsis in this patient who did have a fever tachycardia elevated white count presenting with abdominal pain sources include uncomplicated diverticulitis as no mention of any abscess on the CT the likely organism need to cover with enteric gram-negative both aerobes and anaerobes 2-patient is status post CT-guided drainage of intra-abdominal abscess cultures currently E. coli and Khadra albicans 3-we will continue patient on Zosyn add Diflucan to cover for the Khadra and monitor his clinical course closely Dictation was produced using [email or web address] dictation software. please excuse any grammatical, word or spelling errors. Time with Patient: Less than 30
--- NOTE | 2024-01-19 16:58 | P.PN ---
Subjective Progress Note Date: 01/19/24 Principal diagnosis: Portal vein thrombosis In follow-up today patient denies any bleeding, black or bloody stool, no unusual abdominal discomfort. Objective - Vital Signs Vital signs: Vital Signs Temp 98.1 F 01/19/24 07:29 Pulse 67 01/19/24 07:29 Resp 18 01/19/24 07:29 BP 132/74 01/19/24 07:29 Pulse Ox 97 01/19/24 07:29 FiO2 Intake & Output 01/18/24 01/19/24 01/19/24 18:59 06:59 18:59 Intake Total 75.856 Balance 75.856 Weight 83.915 kg Intake: Intake, IV Titration 75.856 Amount Heparin Sod,Pork in 0.45% 75.856 NaCl 25,000 unit In 0.45 % NaCl 1 250ml.bag @ 11. 92 UNITS/KG/HR 10.003 mls /hr IV .Q24H [facility] Rx#: [id number] Other: # Voids 3 5 - Constitutional General appearance: Present: average body habitus, cooperative, no acute distr ess - EENT Eyes: Present: anicteric sclerae, EOMI ENT: Present: hearing grossly normal - Respiratory Details: resp even and unlabored at rest - Neurologic Neurologic: Present: CNII-XII intact - Musculoskeletal Musculoskeletal: Present: strength equal bilaterally - Psychiatric Psychiatric: Present: A&O x's 3, appropriate affect, intact judgment & insight - Labs CBC & Chem 7: 01/19/24 06:55 01/19/24 06:55 Labs: Abnormal Lab Results - Last 24 Hours (Table) 01/18/24 01/19/24 01/19/24 Range/Units 17:21 06:55 06:55 WBC 15.5 H 13.51 H (3.8-10.6) k/uL RBC 4.26 L 3.98 L (4.30-5.90) m/uL Hgb 12.8 L 11.6 L (13.0-17.5) gm/dL Hct 38.4 L 35.3 L (39.0-53.0) % RDW 14.7 H (11.5-14.5) % Immature Gran # 0.29 H (0.00-0.04) X 10*3/uL Neutrophils # 12.7 H 9.80 H (1.3-7.7) k/uL Monocytes # 1.03 H (0.20-1.00) X 10*3/uL PT (9.9-11.9) sec INR (0.93-1.11) sec APTT (22.0-30.0) sec Calcium 8.0 L (8.7-10.3) mg/dL AST 39 H (14-35) U/L Alkaline Phosphatase 198 H (41-126) U/L Total Protein 5.4 L (6.2-8.2) g/dL Albumin 2.9 L (3.8-4.9) g/dL Albumin/Globulin Ratio 1.16 L (1.60-3.17) Ratio 01/19/24 01/19/24 Range/Units 06:55 06:55 WBC (3.8-10.6) k/uL RBC (4.30-5.90) m/uL Hgb (13.0-17.5) gm/dL Hct (39.0-53.0) % RDW (11.5-14.5) % Immature Gran # (0.00-0.04) X 10*3/uL Neutrophils # (1.3-7.7) k/uL Monocytes # (0.20-1.00) X 10*3/uL PT 12.6 H (9.9-11.9) sec INR 1.18 H (0.93-1.11) sec APTT 31.6 H (22.0-30.0) sec Calcium (8.7-10.3) mg/dL AST (14-35) U/L Alkaline Phosphatase (41-126) U/L Total Protein (6.2-8.2) g/dL Albumin (3.8-4.9) g/dL Albumin/Globulin Ratio (1.60-3.17) Ratio Microbiology - Last 24 Hours (Table) 01/12/24 19:46 Stool Culture - Final Stool 01/17/24 11:45 Gram Stain - Preliminary Aspirate Body Fluid Culture - Preliminary Escherichia coli Khadra albicans - Imaging and Cardiology MRI - abdomen: report reviewed (liver mass protocol) Assessment and Plan (1) Portal vein thrombosis Current Visit: Yes Status: Acute Priority: High Code(s): I81 - PORTAL VEIN THROMBOSIS SNOMED Code(s): 59897419 Plan: Portal vein thrombosis -CTAP report reviewed, suspicious for thrombus. Confirmed with MRI of the liver, liver mass protocol -Provoked thrombus, provoking factors for formation of thrombus including chronic inflammation from diverticulosis, smoking as well as acute infection with a abscess. -Recommendation is for 3 months anticoagulation. Follow-up prior to completion of anticoagulation to see if any of the provoking factors have been discontinued-i.e. smoking-infection/abscess is healed and if there is a treatment plan for diverticulosis. -Reviewed with patient risks of being on rhpnsxmoegflctr-[id number]-[id number] high risk behaviors, as well as having identification on his person identifying him as someone on anticoagulation. -Patient is currently on a heparin drip, okay to continue for now in case patient needs additional procedures. Did send a prescription to [facility] for Eli[facility]. Consulted case management to verify co-pay. -Follow-up 4 to 6-weeks with Process Coordinator
[2024-01-19] MEDS: Apixaban Initiation Dose--VTE 5 MG TAB PO SCH (21:25)
[2024-01-20 07:26] LABS: HGB 11.6 gm/dL (13.0-17.5); MCHC 33.2 g/dL (31.0-37.0); MCV 90.4 fL (80.0-100.0); Mean Platelet Volume 7.8; Platelet Count 379 k/uL (150-450); RBC 3.87 m/uL (4.30-5.90); WBC 12.4 k/uL (3.8-10.6)
--- NOTE | 2024-01-20 07:27 | XR ---
EXAMINATION TYPE: XR abdomen 2V DATE OF EXAM: 01/20/2024 CLINICAL DATA: 53-year-old male follow-up ileus, [facility] COMPARISON: 01/19/2024 FINDINGS: Lung bases are clear. No evidence for free intraperitoneal air. Gassy bowel throughout th e abdomen including small bowel and colon. Most of the small bowel loops show improvement though at l east one remains dilated up to 4.5 cm versus 4.2 cm, previously. Colonic air is also redemonstrated. Scattered air-fluid levels throughout the bowel. Drainage catheter is located within the left lower a bdomen. IMPRESSION: Suspect stable to slightly improving generalized ileus.
[2024-01-20 07:39] LABS: African American GFR (CKD) >90 (>60 ml/min/1.73 sqM); Anion Gap 9 mmol/L; Blood Urea Nitrogen 8 mg/dL (9-20); Calcium 7.7 mg/dL (8.4-10.2); Carbon Dioxide 24 mmol/L (22-30); Chloride 102 mmol/L (98-107); Glucose 86 mg/dL (74-99); Non-African American GFR(CKD) >90 (>60 ml/min/1.73 sqM); Potassium 3.3 mmol/L (3.5-5.1); Sodium 135 mmol/L (137-145)
[2024-01-20] MEDS: POTASSIUM CHLORIDE ER 20 MEQ TAB.ER PO STA (09:32)
--- NOTE | 2024-01-20 12:30 | P.PN ---
Subjective Progress Note Date: 01/20/24 Principal diagnosis: Reason for follow-up is sepsis and diverticulitis Patient is a 53-year-old male with no significant past medical history currently everyday smoker patient presenting to the hospital for evaluation of abdominal pain, patient has been diagnosed with diverticulitis without any perforation, repeat CT did shows significant changes and concerning for an abscess.Patient is status post CT-guided drainage of the intra-abdominal abscess completed on 01/17/2024. On today's evaluation that is 01/20/2024,the patient denies any fever or any chills, patient is breathing comfortably on room air, the patient denies chest pain shortness of breath and no significant cough, patient Abdominal pain is currently controlled, no nausea no vomiting no bowel movement. Patient white count is down to 12.4, creatinine 0.78 abdominal cultures with an E. coli and Khadra Objective - Vital Signs Vital signs: Vital Signs Temp 98.4 F 01/20/24 07:16 Pulse 77 01/20/24 07:16 Resp 19 01/20/24 07:16 BP 129/79 01/20/24 07:16 Pulse Ox 95 01/20/24 07:16 FiO2 Intake & Output 01/19/24 01/20/24 01/20/24 18:59 06:59 18:59 Intake Total 1300 Balance 1300 Intake: Oral 1300 Other: # Voids 2 3 2 - Exam GENERAL DESCRIPTION: Middle-age male lying in bed in no distress RESPIRATORY SYSTEM: Unlabored breathing , decreased breath sounds at bases HEART: S1 S2 regular rate and rhythm , ABDOMEN: Soft , mild distention and left lower quadrant tenderness EXTREMITIES: No edema feet - Labs CBC & Chem 7: 01/20/24 06:57 01/20/24 06:57 Labs: Abnormal Lab Results - Last 24 Hours (Table) 01/19/24 01/20/24 01/20/24 Range/Units 06:55 06:57 06:57 WBC 12.4 H (3.8-10.6) k/uL RBC 3.87 L (4.30-5.90) m/uL Hgb 11.6 L (13.0-17.5) gm/dL Hct 35.0 L (39.0-53.0) % PT 12.6 H (9.9-11.9) sec INR 1.18 H (0.93-1.11) sec Sodium 135 L (137-145) mmol/L Potassium 3.3 L (3.5-5.1) mmol/L BUN 8 L (9-20) mg/dL Calcium 7.7 L (8.4-10.2) mg/dL Microbiology - Last 24 Hours (Table) 01/17/24 11:45 Fungal Culture - Preliminary Aspirate Yeast species 01/12/24 19:46 Stool Culture - Final Stool 01/17/24 11:45 Gram Stain - Preliminary Aspirate Body Fluid Culture - Preliminary Escherichia coli Khadra albicans Assessment and Plan (1) Diverticulitis Current Visit: Yes Status: Acute Priority: High Code(s): K57.92 - DVTRCLI OF INTEST, PART UNSP, W/O PERF OR ABSCESS W/O BLEED SNOMED Code(s): 521117806 (2) Sepsis Current Visit: Yes Status: Acute Code(s): A41.9 - SEPSIS, UNSPECIFIED ORGANISM SNOMED Code(s): 71731535 Plan: 1patient presented to hospital with sepsis in this patient who did have a fever tachycardia elevated white count presenting with abdominal pain sources include uncomplicated diverticulitis as no mention of any abscess on the CT the likely organism need to cover with enteric gram-negative both aerobes and anaerobes 2-patient is status post CT-guided drainage of intra-abdominal abscess cultures currently E. coli and Khadra albicans 3-patient to continue with Zosyn and Diflucan will benefit from midline and outpatient IV antibiotic y therapy which can be done at [facility] per the delinquency prevention social worker Dictation was produced using [employer] dictation software. please excuse any grammatical, word or spelling errors. Time with Patient: Less than 30
--- NOTE | 2024-01-20 12:32 | P.PN ---
Subjective Progress Note Date: 01/20/24 Principal diagnosis: Portal vein thrombosis At today's visit patient is resting comfortably in bed. No acute events. Denies any episodes of acute bleeding. Reporting intermittent abdominal discomfort and dizziness. Patient has been transitioned to Eliquis. Medication has been sent to outpatient pharmacy and case management consulted for medication assistance as patient does not have medical insurance. Spoke with case packer and sealer today and he is able to obtain a 30 day free prescription for patient. Patient was instructed to call back of medication card prior to 30 days for further medication assistance. Objective - Vital Signs Vital signs: Vital Signs Temp 98.4 F 01/20/24 07:16 Pulse 77 01/20/24 07:16 Resp 19 01/20/24 07:16 BP 129/79 01/20/24 07:16 Pulse Ox 95 01/20/24 07:16 FiO2 Intake & Output 01/19/24 01/20/24 01/20/24 18:59 06:59 18:59 Intake Total 1300 Balance 1300 Intake: Oral 1300 Other: # Voids 2 3 2 - Constitutional General appearance: Present: average body habitus, no acute distress - EENT Eyes: Present: anicteric sclerae, EOMI ENT: Present: hearing grossly normal - Respiratory Details: Breathing even and unlabored - Cardiovascular Details: Skin warm and dry, well-perfused - Gastrointestinal General gastrointestinal: Present: tenderness - Integumentary Integumentary: Absent: cyanotic - Neurologic Neurologic: Present: CNII-XII intact - Musculoskeletal Musculoskeletal: Present: strength equal bilaterally - Psychiatric Psychiatric: Present: A&O x's 3 - Labs CBC & Chem 7: 01/20/24 06:57 01/20/24 06:57 Labs: Abnormal Lab Results - Last 24 Hours (Table) 01/19/24 01/20/24 01/20/24 Range/Units 06:55 06:57 06:57 WBC 12.4 H (3.8-10.6) k/uL RBC 3.87 L (4.30-5.90) m/uL Hgb 11.6 L (13.0-17.5) gm/dL Hct 35.0 L (39.0-53.0) % PT 12.6 H (9.9-11.9) sec INR 1.18 H (0.93-1.11) sec Sodium 135 L (137-145) mmol/L Potassium 3.3 L (3.5-5.1) mmol/L BUN 8 L (9-20) mg/dL Calcium 7.7 L (8.4-10.2) mg/dL Microbiology - Last 24 Hours (Table) 01/17/24 11:45 Fungal Culture - Preliminary Aspirate Yeast species 01/12/24 19:46 Stool Culture - Final Stool 01/17/24 11:45 Gram Stain - Preliminary Aspirate Body Fluid Culture - Preliminary Escherichia coli Khadra albicans Assessment and Plan (1) Diverticulitis Current Visit: Yes Status: Acute Priority: High Code(s): K57.92 - DVTRCLI OF INTEST, PART UNSP, W/O PERF OR ABSCESS W/O BLEED SNOMED Code(s): 874855507 (2) Portal vein thrombosis Current Visit: Yes Status: Acute Priority: High Code(s): I81 - PORTAL VEIN THROMBOSIS SNOMED Code(s): 21243792 Plan: Portal vein thrombosis -CTAP report reviewed, suspicious for thrombus. Confirmed with MRI of the liver, liver mass protocol -Provoked thrombus, provoking factors for formation of thrombus including chronic inflammation from diverticulosis, smoking as well as acute infection with a abscess. -Recommendation is for 3 months anticoagulation. Follow-up prior to completion of anticoagulation to see if any of the provoking factors have been discontinued-i.e. smoking-infection/abscess is healed and if there is a treatment plan for diverticulitis. -Reviewed with patient risks of being on vicojrklcxylvwb-myjondhq-gxqwbiho high risk behaviors, as well as having identification on his person identifying him as someone on anticoagulation. -Patient has been transitioned to [facility]. Medication has been sent to [facility] and case management consulted for medication assistance as patient does not have medical insurance. Spoke with case packer and sealer today and he is able to obtain a 30 day free prescription for patient. Patient was instructed to call back of medication card prior to 30 days for further medication assistance -Follow-up 4 to 6-weeks with Trade Clerk Pt and family updated on POC
[2024-01-20] MEDS: hydrOXYzine HCL 25 MG TAB PO PRN (13:01)
--- NOTE | 2024-01-20 14:24 | P.PN ---
Subjective Progress Note Date: 01/20/24 CHIEF COMPLAINT: Diverticulitis HISTORY OF PRESENT ILLNESS: Patient reports he is feeling better today. Still a little bloated. Denies any nausea or vomiting. Has been having tiny stools with some flatus. Abdominal x-ray had reported ileus. Afebrile. White count is down from 13-12. Potassium 3.3 and being replaced. culture growing E. coli and Khadra albicans PHYSICAL EXAM: VITAL SIGNS: Reviewed. GENERAL: Well-developed in no acute distress. ABDOMEN: Soft. Mildly distended. Nontender. drain in place with purulent drainage NEUROLOGIC: Alert and oriented. Cranial nerves II through XII grossly intact. ASSESSMENT: 1. Acute sigmoid diverticulitis with abscess status post CT-guided drainage 2. Ileus 3. Portal vein thrombus followed by hematology 4. Hypokalemia PLAN: -CT scan abdomen pelvis ordered for Tuesday to follow-up on diverticular abscess -Continue full liquid diet -Antibiotics per infectious disease -Encourage patient to ambulate -Potassium replaced -DVT prophylaxis on [facility] Physician Frame Opener note has been reviewed by physician. Signing provider agrees with the documented findings, assessment, and plan of care. I have personally seen and examined the patient, reviewed the HOUSE DETECTIVE /PAs history, exam and MDM and agree with the assessment and plan as written. Based on total visit time, I have performed more than 50% of the visit. As above: Patient feels better today. No pain currently. Mild nausea earlier. Tolerating liquids. Appetite better today. Cultures noted. White blood cell count improved. Slowly advance diet as tolerated. Continue antibiotics. Repeat CAT scan on Tuesday. Objective - Vital Signs Vital signs: Vital Signs Temp 98.4 F 01/20/24 07:16 Pulse 77 01/20/24 07:16 Resp 19 01/20/24 07:16 BP 129/79 01/20/24 07:16 Pulse Ox 95 01/20/24 07:16 FiO2 Intake & Output 01/19/24 01/20/24 01/20/24 18:59 06:59 18:59 Intake Total 1300 Balance 1300 Weight 83.915 kg Intake: Oral 1300 Other: # Voids 2 3 2 - Labs CBC & Chem 7: 01/20/24 06:57 01/20/24 06:57 Labs: Abnormal Lab Results - Last 24 Hours (Table) 01/20/24 01/20/24 Range/Units 06:57 06:57 WBC 12.4 H (3.8-10.6) k/uL RBC 3.87 L (4.30-5.90) m/uL Hgb 11.6 L (13.0-17.5) gm/dL Hct 35.0 L (39.0-53.0) % Sodium 135 L (137-145) mmol/L Potassium 3.3 L (3.5-5.1) mmol/L BUN 8 L (9-20) mg/dL Calcium 7.7 L (8.4-10.2) mg/dL Microbiology - Last 24 Hours (Table) 01/17/24 11:45 Fungal Culture - Preliminary Aspirate Yeast species 01/12/24 19:46 Stool Culture - Final Stool 01/17/24 11:45 Gram Stain - Preliminary Aspirate Body Fluid Culture - Preliminary Escherichia coli Khadra albicans
--- NOTE | 2024-01-20 16:03 | P.PN ---
Subjective Progress Note Date: 01/20/24 (delayed charting seen at 0930) Patient is a 53-year-old man with no known past medical history who initially presented with complaints of abdominal pain. In the emergency department he underwent an extensive evaluation. Initial vitals were remarkable for Tmax of 103.1 and a heart rate of 126. Initial laboratory analysis was remarkable for white blood cell count of 13.6, bilirubin 2.8. CT abdomen and pelvis demonstrated sigmoid diverticulitis with inability to rule out underlying mass. Influenza A/B/RSV/COVID-19 testing was negative. He received 2 L of IV fluid in the emergency and in the emergency department with some improvements in his blood pressure and heart rate. He was admitted for further monitoring. Surgery was consulted. Patient was noted to have sustained atrial tachycardia and subsequently cardiology was consulted. Echocardiogram was obtained which showed normal size ventricles with ejection fraction 55% and no significant wall motion abnormalities. Cardiology recommended continuing care for his diverticulitis. He was being followed by infectious disease and surgery. His white blood cell count continued to increase and on 01/16/[address] abdomen and pelvis was performed which demonstrated worsening of the diverticulitis that is involving the sigmoid colon with new fluid collection with air-fluid levels next to the sigmoid colon with small amount of intra hepatic portal vein thrombus. IR was consulted for drainage of abscess which was completed on 01/17/24. Cultures grew khadra and e. coli. Patient seen and examined at bedside. Patient seen and examined at bedside. He does complain of some abdominal discomfort. Denies any chest pain or shortness of breath. Has still not had a bowel movement. Continues to have gas. Vital signs reviewed General: Nontoxic, no distress, appears at stated age Cardiovascular: S1S2 reg, no murmur Lungs: CTA bilateral, no rhonchi, no rales, no accessory muscle use Abdominal: Soft, +tender to palpation diffusely, + distended, no guarding Ext: No gross muscle atrophy, no edema b/l lower extremities, no contractures Neuro: CN II-XI grossly intact, no focal neuro deficits Psych: Alert, oriented, appropriate affect Assessment/Plan: Sigmoid diverticulitis with sepsis E coli and khadra pericolonic abscess with possible perforation s/p IR guided drainage with drain inplace Underlying mass not excluded Portal vein thrombus - Eliquis 10 mg PO BID - Oncology consult reviewed: anticoagulation for provoked clot for 3 months. - Zosyn 3.375 g IVPB q 8 hours D #6, diflucan 200 mg IVPB daily D#2 -General surgery recommendations: CT scan abdomen and pelvis on 01/22, full liquid diet. -Infectious disease recommendations: Continue with Zosyn and Diflucan. -Oncology recommendations: Provoked thrombus 3 months of Eliquis. Follow-up with hematology in 4 to 6 weeks. -ESR, CRP are elevated at 51 and 35, Stool lactoferrin + -Stool culture, negative -FOBT, negative - Full liquid diet - pain control with morphine 4 mg IVP q 4 horus prn pain, ultram for mild pain Atrial tachycardia - cardio signed off, echo with EF 55% Social stressor -Patient does not have insurance -roller shop utility worker is currently working on seeing if we can arrange for outpatient IV antibiotics to be done through the infusion center with whyun[facility]. Patient will be getting several home care visits through [facility]. He will have 1 month supply of Eliquis on discharge with coupon code. He has been given the number to call [facility] for the underinsured to establish a primary care physician. Imaging: None new Data Review: Fungal cultures-yeast species Aspirate cultures E. coli and Khadra. Labs reviewed from today include CBC and basic metabolic profile which are remarkable for white blood cell count 12.4, hemoglobin 11.6, potassium 3.3. Labs reviewed from today include CBC and basic metabolic profile which are remarkable for WBC 13.51 and hgb 11.6 Abscess culture results: E coli and Khadra tMax in the last 24 hours is 100 DVT prophylaxis: add lovenox in AM Anticipated discharge date: Pending clinical course Anticipated discharge place: Pending clinical course This dictation was prepared using [employer]igo[employer] voice recognition software. Though every attempt is made to correct errors during dictation some may still exist. Objective - Vital Signs Vital signs: Vital Signs Temp 98.4 F 01/20/24 07:16 Pulse 77 01/20/24 07:16 Resp 19 01/20/24 07:16 BP 129/79 01/20/24 07:16 Pulse Ox 95 01/20/24 07:16 FiO2 Intake & Output 01/19/24 01/20/24 01/20/24 18:59 06:59 18:59 Intake Total 1300 Balance 1300 Weight 83.915 kg Intake: Oral 1300 Other: # Voids 2 3 2 - Labs CBC & Chem 7: 01/20/24 06:57 01/20/24 06:57 Labs: Abnormal Lab Results - Last 24 Hours (Table) 01/20/24 01/20/24 Range/Units 06:57 06:57 WBC 12.4 H (3.8-10.6) k/uL RBC 3.87 L (4.30-5.90) m/uL Hgb 11.6 L (13.0-17.5) gm/dL Hct 35.0 L (39.0-53.0) % Sodium 135 L (137-145) mmol/L Potassium 3.3 L (3.5-5.1) mmol/L BUN 8 L (9-20) mg/dL Calcium 7.7 L (8.4-10.2) mg/dL Microbiology - Last 24 Hours (Table) 01/17/24 11:45 Fungal Culture - Preliminary Aspirate Yeast species 01/12/24 19:46 Stool Culture - Final Stool
[2024-01-21 07:55] LABS: Basophils # (A) 0.1 k/uL (0-0.2); Basophils % (A) 0 %; Eosinophils # (A) 0.2 k/uL (0-0.7); Eosinophils % (A) 1 %; HCT 37.6 % (39.0-53.0); HGB 11.9 gm/dL (13.0-17.5); Lymphocytes # (A) 1.4 k/uL (1.0-4.8); Lymphocytes % (A) 10 %; MCH 28.7 pg (25.0-35.0); MCHC 31.8 g/dL (31.0-37.0); MCV 90.5 fL (80.0-100.0); Mean Platelet Volume 7.7; Monocytes # (A) 0.7 k/uL (0-1.0); Monocytes % (A) 5 %; Neutrophils # (A) 11.9 k/uL (1.3-7.7); Neutrophils % (A) 82 %; Platelet Count 399 k/uL (150-450); RBC 4.15 m/uL (4.30-5.90); RDW 14.1 % (11.5-15.5); WBC 14.5 k/uL (3.8-10.6)
[2024-01-21 08:54] LABS: African American GFR (CKD) >90 (>60 ml/min/1.73 sqM); Anion Gap 7 mmol/L; Blood Urea Nitrogen 6 mg/dL (9-20); Calcium 8.1 mg/dL (8.4-10.2); Carbon Dioxide 26 mmol/L (22-30); Chloride 105 mmol/L (98-107); Glucose 94 mg/dL (74-99); Non-African American GFR(CKD) >90 (>60 ml/min/1.73 sqM); Sodium 138 mmol/L (137-145)
--- NOTE | 2024-01-21 12:36 | P.PN ---
Subjective Progress Note Date: 01/21/24 Patient is a 53-year-old man with no known past medical history who initially presented with complaints of abdominal pain. In the emergency department he underwent an extensive evaluation. Initial vitals were remarkable for Tmax of 103.1 and a heart rate of 126. Initial laboratory analysis was remarkable for white blood cell count of 13.6, bilirubin 2.8. CT abdomen and pelvis demonstrated sigmoid diverticulitis with inability to rule out underlying mass. Influenza A/B/RSV/COVID-19 testing was negative. He received 2 L of IV fluid in the emergency and in the emergency department with some improvements in his blood pressure and heart rate. He was admitted for further monitoring. Surgery was consulted. Patient was noted to have sustained atrial tachycardia and subsequently cardiology was consulted. Echocardiogram was obtained which showed normal size ventricles with ejection fraction 55% and no significant wall motion abnormalities. Cardiology recommended continuing care for his diverticulitis. He was being followed by infectious disease and surgery. His white blood cell count continued to increase and on 01/16/[address] abdomen and pelvis was performed which demonstrated worsening of the diverticulitis that is involving the sigmoid colon with new fluid collection with air-fluid levels next to the sigmoid colon with small amount of intra hepatic portal vein thrombus. IR was consulted for drainage of abscess which was completed on 01/17/24. Cultures grew khadra and e. coli. Patient seen and examined at bedside. Patient seen and examined at bedside. He does complain of some abdominal discomfort. Denies any chest pain or shortness of breath. Had bowel movements yesterday Vital signs reviewed General: Nontoxic, no distress, appears at stated age Cardiovascular: S1S2 reg, no murmur Lungs: CTA bilateral, no rhonchi, no rales, no accessory muscle use Abdominal: Soft, +tender to palpation diffusely, + distended, no guarding, drain in place Ext: No gross muscle atrophy, no edema b/l lower extremities, no contractures Neuro: CN II-XI grossly intact, no focal neuro deficits Psych: Alert, oriented, appropriate affect Assessment/Plan: Sigmoid diverticulitis with sepsis E coli and khadra pericolonic abscess with possible perforation s/p IR guided drainage with drain inplace Underlying mass not excluded Portal vein thrombus - Eliquis 10 mg PO BID - Zosyn 3.375 g IVPB q 8 hours D #7, diflucan 200 mg IVPB daily D#3 -General surgery following, patient on regular diet, CT abdomen pelvis pending -Infectious disease recommendations: Continue with Zosyn and Diflucan. -Oncology recommendations: Provoked thrombus 3 months of Eliquis. Follow-up with hematology in 4 to 6 weeks. 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 Patient will be getting several home care visits through [facility]. He will have 1 month supply of Eliquis on discharge with coupon code. He [facility]. Imaging: None new Data Review today: Fungal cultures-yeast species Aspirate cultures E. coli and Khadra. WBC 14.5, hemoglobin 11.9, potassium 4, creatinine 0.79 DVT prophylaxis: Eliquis Anticipated discharge date: Pending clinical course Anticipated discharge place: Pending clinical course Objective - Vital Signs Vital signs: Vital Signs Temp 98.8 F 01/21/24 07:07 Pulse 75 01/21/24 07:07 Resp 17 01/21/24 07:07 BP 123/80 01/21/24 07:07 Pulse Ox 97 01/21/24 07:07 FiO2 Intake & Output 01/20/24 01/21/24 01/21/24 18:59 06:59 18:59 Weight 83.915 kg Other: # Voids 3 2 1 - Labs CBC & Chem 7: 01/21/24 07:13 01/21/24 07:13 Labs: Abnormal Lab Results - Last 24 Hours (Table) 01/21/24 01/21/24 Range/Units 07:13 07:13 WBC 14.5 H (3.8-10.6) k/uL RBC 4.15 L (4.30-5.90) m/uL Hgb 11.9 L (13.0-17.5) gm/dL Hct 37.6 L (39.0-53.0) % Neutrophils # 11.9 H (1.3-7.7) k/uL BUN 6 L (9-20) mg/dL Calcium 8.1 L (8.4-10.2) mg/dL Microbiology - Last 24 Hours (Table) 01/17/24 11:45 Fungal Culture - Preliminary Aspirate Yeast species
--- NOTE | 2024-01-21 13:32 | P.PN ---
Subjective Progress Note Date: 01/21/24 Principal diagnosis: Diverticulitis with abscess status post percutaneous drainage Patient is feeling better. He has the positive bowel movement. Objective - Vital Signs Vital signs: Vital Signs Temp 98.8 F 01/21/24 07:07 Pulse 75 01/21/24 07:07 Resp 17 01/21/24 07:07 BP 123/80 01/21/24 07:07 Pulse Ox 97 01/21/24 07:07 FiO2 Intake & Output 01/20/24 01/21/24 01/21/24 18:59 06:59 18:59 Weight 83.915 kg Other: # Voids 3 2 1 - Constitutional General appearance: Present: average body habitus, cooperative, no acute distress - EENT Eyes: Present: PERRLA. Absent: abnormal pupil, anicteric sclerae, disc margins sharp, edentulous, EOMI, fundus normal, photophobia, dentition normal, poor dentition, ptosis, scleral icterus, normal appearance ENT: Present: hard of hearing, hearing grossly normal, NA/AT, normal oropharynx, other, pharyngeal erythema, thrush, tonsillar exudates, tonsillar swelling Ears: bilateral: normal - Respiratory Respiratory: bilateral: CTA - Cardiovascular Rhythm: regular - Gastrointestinal Gastrointestinal Comment(s): Patient has percutaneous drain in place. Minimal output. General gastrointestinal: Present: normal bowel sounds, tenderness (Mild) - Neurologic Neurologic: Present: CNII-XII intact - Labs CBC & Chem 7: 01/21/24 07:13 01/21/24 07:13 Labs: Abnormal Lab Results - Last 24 Hours (Table) 01/21/24 01/21/24 Range/Units 07:13 07:13 WBC 14.5 H (3.8-10.6) k/uL RBC 4.15 L (4.30-5.90) m/uL Hgb 11.9 L (13.0-17.5) gm/dL Hct 37.6 L (39.0-53.0) % Neutrophils # 11.9 H (1.3-7.7) k/uL BUN 6 L (9-20) mg/dL Calcium 8.1 L (8.4-10.2) mg/dL Microbiology - Last 24 Hours (Table) 01/17/24 11:45 Fungal Culture - Preliminary Aspirate Yeast species - Imaging and Cardiology CT scan - abdomen: report reviewed Assessment and Plan Assessment: Diverticulitis with perforation Positive bowel movement Plan advance diet and repeat CT scan on Tuesday.
--- NOTE | 2024-01-21 15:54 | P.PN ---
Subjective Progress Note Date: 01/21/24 Principal diagnosis: Reason for follow-up is sepsis and diverticulitis Patient is a 53-year-old male with no significant past medical history currently everyday smoker patient presenting to the hospital for evaluation of abdominal pain, patient has been diagnosed with diverticulitis without any perforation, repeat CT did shows significant changes and concerning for an abscess.Patient is status post CT-guided drainage of the intra-abdominal abscess completed on 01/17/2024. On today's evaluation that is 01/21/2024,the patient remains to be afebrile, patient is on room air not requiring supplemental oxygen and denies any shortness of breath no chest pain or cough.Patient denies having any nausea or vomiting, abdominal pain has decreased in intensity and is having bowel movements. The patient white count is 14.5, creatinine 0.79 abdominal culture growing E. coli Clostridium and Khadra Objective - Vital Signs Vital signs: Vital Signs Temp 98.8 F 01/21/24 07:07 Pulse 75 01/21/24 07:07 Resp 17 01/21/24 07:07 BP 123/80 01/21/24 07:07 Pulse Ox 97 01/21/24 07:07 FiO2 Intake & Output 01/20/24 01/21/24 01/21/24 18:59 06:59 18:59 Weight 83.915 kg Other: # Voids 3 2 1 - Exam GENERAL DESCRIPTION: Middle-age male lying in bed in no distress RESPIRATORY SYSTEM: Unlabored breathing , decreased breath sounds at bases HEART: S1 S2 regular rate and rhythm , ABDOMEN: Soft , mild distention and left lower quadrant tenderness EXTREMITIES: No edema feet - Labs CBC & Chem 7: 01/21/24 07:13 01/21/24 07:13 Labs: Abnormal Lab Results - Last 24 Hours (Table) 01/21/24 01/21/24 Range/Units 07:13 07:13 WBC 14.5 H (3.8-10.6) k/uL RBC 4.15 L (4.30-5.90) m/uL Hgb 11.9 L (13.0-17.5) gm/dL Hct 37.6 L (39.0-53.0) % Neutrophils # 11.9 H (1.3-7.7) k/uL BUN 6 L (9-20) mg/dL Calcium 8.1 L (8.4-10.2) mg/dL Microbiology - Last 24 Hours (Table) 01/17/24 11:45 Anaerobic Culture - Final Abdominal Fluid Anaerobic Gm Negative Bacilli Anaerobic Gram Positive Cocci 01/17/24 11:45 Gram Stain - Final Aspirate Body Fluid Culture - Final Escherichia coli Beta Hemolytic Strep Group C Khadra albicans Clostridium perfringens 01/17/24 11:45 Fungal Culture - Preliminary Aspirate Yeast species Assessment and Plan (1) Diverticulitis Current Visit: Yes Status: Acute Priority: High Code(s): K57.92 - DVTRCLI OF INTEST, PART UNSP, W/O PERF OR ABSCESS W/O BLEED SNOMED Code(s): 836237946 (2) Sepsis Current Visit: Yes Status: Acute Code(s): A41.9 - SEPSIS, UNSPECIFIED ORGANISM SNOMED Code(s): 72594199 Plan: 1patient presented to hospital with sepsis in this patient who did have a fever tachycardia elevated white count presenting with abdominal pain sources include uncomplicated diverticulitis as no mention of any abscess on the CT the likely organism need to cover with enteric gram-negative both aerobes and anaerobes 2-patient is status post CT-guided drainage of intra-abdominal abscess cultures currently E. coli and Khadra albicans 3-patient is afebrile white count slightly high that we will monitor closely for now to continue with Zosyn and Diflucan Question concern answered Dictation was produced using [employer] (formerly known as [employer]) dictation software. please excuse any grammatical, word or spelling errors. Time with Patient: Less than 30
[2024-01-22 06:42] LABS: Basophils # (A) 0.1 k/uL (0-0.2); Basophils % (A) 0 %; Eosinophils # (A) 0.3 k/uL (0-0.7); Eosinophils % (A) 2 %; HCT 37.2 % (39.0-53.0); HGB 11.8 gm/dL (13.0-17.5); Lymphocytes # (A) 1.7 k/uL (1.0-4.8); Lymphocytes % (A) 10 %; MCH 29.2 pg (25.0-35.0); MCHC 31.8 g/dL (31.0-37.0); MCV 91.7 fL (80.0-100.0); Mean Platelet Volume 7.6; Monocytes # (A) 0.7 k/uL (0-1.0); Monocytes % (A) 4 %; Neutrophils # (A) 14.4 k/uL (1.3-7.7); Neutrophils % (A) 83 %; Platelet Count 429 k/uL (150-450); RBC 4.06 m/uL (4.30-5.90); RDW 14.2 % (11.5-15.5); WBC 17.4 k/uL (3.8-10.6)
[2024-01-22 06:46] LABS: African American GFR (CKD) >90 (>60 ml/min/1.73 sqM); Anion Gap 8 mmol/L; Blood Urea Nitrogen 9 mg/dL (9-20); Calcium 8.3 mg/dL (8.4-10.2); Carbon Dioxide 26 mmol/L (22-30); Chloride 104 mmol/L (98-107); Glucose 88 mg/dL (74-99); Non-African American GFR(CKD) >90 (>60 ml/min/1.73 sqM); Potassium 4.3 mmol/L (3.5-5.1); Sodium 138 mmol/L (137-145)
--- NOTE | 2024-01-22 10:32 | P.PN ---
Subjective Progress Note Date: 01/22/24 Patient feels slightly better. He has states his pain is improved. Objective - Vital Signs Vital signs: Vital Signs Temp 98.2 F 01/22/24 07:53 Pulse 98 01/22/24 07:53 Resp 18 01/22/24 07:53 BP 120/77 01/22/24 07:53 Pulse Ox 95 01/22/24 07:53 FiO2 Intake & Output 01/21/24 01/22/24 01/22/24 18:59 06:59 18:59 Other: # Voids 3 2 1 # Bowel Movements 1 - Gastrointestinal Gastrointestinal Comment(s): Abdomen soft. Neurologic drain has drained purulent fluid. - Labs CBC & Chem 7: 01/22/24 06:04 01/22/24 06:04 Labs: Abnormal Lab Results - Last 24 Hours (Table) 01/22/24 01/22/24 Range/Units 06:04 06:04 WBC 17.4 H (3.8-10.6) k/uL RBC 4.06 L (4.30-5.90) m/uL Hgb 11.8 L (13.0-17.5) gm/dL Hct 37.2 L (39.0-53.0) % Neutrophils # 14.4 H (1.3-7.7) k/uL Calcium 8.3 L (8.4-10.2) mg/dL Microbiology - Last 24 Hours (Table) 01/17/24 11:45 Anaerobic Culture - Final Abdominal Fluid Anaerobic Gm Negative Bacilli Anaerobic Gram Positive Cocci 01/17/24 11:45 Gram Stain - Final Aspirate Body Fluid Culture - Final Escherichia coli Beta Hemolytic Strep Group C Khadra albicans Clostridium perfringens Assessment and Plan Assessment: Diverticula is abscess. Patient can receive IV antibiotics and drainage.
--- NOTE | 2024-01-22 11:55 | P.PN ---
Subjective Progress Note Date: 01/22/24 Patient is a 53-year-old man with no known past medical history who initially presented with complaints of abdominal pain. In the emergency department he underwent an extensive evaluation. Initial vitals were remarkable for Tmax of 103.1 and a heart rate of 126. Initial laboratory analysis was remarkable for white blood cell count of 13.6, bilirubin 2.8. CT abdomen and pelvis demonstrated sigmoid diverticulitis with inability to rule out underlying mass. Influenza A/B/RSV/COVID-19 testing was negative. He received 2 L of IV fluid in the emergency and in the emergency department with some improvements in his blood pressure and heart rate. He was admitted for further monitoring. Surgery was consulted. Patient was noted to have sustained atrial tachycardia and subsequently cardiology was consulted. Echocardiogram was obtained which showed normal size ventricles with ejection fraction 55% and no significant wall motion abnormalities. Cardiology recommended continuing care for his diverticulitis. He was being followed by infectious disease and surgery. His white blood cell count continued to increase and on 01/16/[address] abdomen and pelvis was performed which demonstrated worsening of the diverticulitis that is involving the sigmoid colon with new fluid collection with air-fluid levels next to the sigmoid colon with small amount of intra hepatic portal vein thrombus. IR was consulted for drainage of abscess which was completed on 01/17/24. Cultures grew khadra and e. coli. Patient seen and examined at bedside. No new complaints, has been having more frequent bowel movements now Vital signs reviewed General: Nontoxic, no distress, appears at stated age Cardiovascular: S1S2 reg, no murmur Lungs: CTA bilateral, no rhonchi, no rales, no accessory muscle use Abdominal: Soft, nontender, + distended, no guarding, drain in place Ext: No gross muscle atrophy, no edema b/l lower extremities, no contractures Neuro: CN II-XI grossly intact, no focal neuro deficits Psych: Alert, oriented, appropriate affect Assessment/Plan: Sigmoid diverticulitis with sepsis E coli and khadra pericolonic abscess with possible perforation s/p IR guided drainage with drain inplace Underlying mass not excluded Portal vein thrombus - Eliquis 10 mg PO BID - Zosyn 3.375 g IVPB q 8 hours D #8, diflucan 200 mg IVPB daily D#4 -General surgery note reviewed, continue current management, CT abdomen pelvis pending, patient on regular diet -Infectious disease recommendations: Continue with Zosyn and Diflucan. Leukocytosis worsening, repeat CBC tomorrow -Oncology recommendations: Provoked thrombus 3 months of Eliquis. Follow-up with hematology in 4 to 6 weeks. 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 Patient will be getting several home care visits through [facility]. He will have 1 month supply of Eliquis on discharge with coupon code. He has been given the number to call [facility] to establish a primary care physician. Imaging: None new Data Review today: Fungal cultures-yeast species Aspirate cultures E. coli and Khadra. WBC 17.4, hemoglobin 11.8, potassium 4.3, creatinine 0.89 DVT prophylaxis: Eliquis Anticipated discharge date: Pending clinical course Anticipated discharge place: Pending clinical course Objective - Vital Signs Vital signs: Vital Signs Temp 98.2 F 01/22/24 07:53 Pulse 98 01/22/24 07:53 Resp 18 01/22/24 07:53 BP 120/77 01/22/24 07:53 Pulse Ox 95 01/22/24 07:53 FiO2 Intake & Output 01/21/24 01/22/24 01/22/24 18:59 06:59 18:59 Other: # Voids 3 2 1 # Bowel Movements 1 - Labs CBC & Chem 7: 01/22/24 06:04 01/22/24 06:04 Labs: Abnormal Lab Results - Last 24 Hours (Table) 01/22/24 01/22/24 Range/Units 06:04 06:04 WBC 17.4 H (3.8-10.6) k/uL RBC 4.06 L (4.30-5.90) m/uL Hgb 11.8 L (13.0-17.5) gm/dL Hct 37.2 L (39.0-53.0) % Neutrophils # 14.4 H (1.3-7.7) k/uL Calcium 8.3 L (8.4-10.2) mg/dL Microbiology - Last 24 Hours (Table) 01/17/24 11:45 Anaerobic Culture - Final Abdominal Fluid Anaerobic Gm Negative Bacilli Anaerobic Gram Positive Cocci 01/17/24 11:45 Gram Stain - Final Aspirate Body Fluid Culture - Final Escherichia coli Beta Hemolytic Strep Group C Khadra albicans Clostridium perfringens
--- NOTE | 2024-01-22 15:11 | P.PN ---
Subjective Progress Note Date: 01/22/24 Principal diagnosis: Reason for follow-up is sepsis and diverticulitis Patient is a 53-year-old male with no significant past medical history currently everyday smoker patient presenting to the hospital for evaluation of abdominal pain, patient has been diagnosed with diverticulitis without any perforation, repeat CT did shows significant changes and concerning for an abscess.Patient is status post CT-guided drainage of the intra-abdominal abscess completed on 01/17/2024. On today's evaluation that is 01/22/2024, the patient continues to be afebrile, the patient is on room air and breathing comfortably, the Pt denies having any chest pain or cough, the patient denies abdominal pain has decreased in intensity no nausea vomiting did have a small bowel movement. Patient white count slightly up to 17.4 today creatinine 0.89 Objective - Vital Signs Vital signs: Vital Signs Temp 98.2 F 01/22/24 07:53 Pulse 98 01/22/24 07:53 Resp 18 01/22/24 07:53 BP 120/77 01/22/24 07:53 Pulse Ox 95 01/22/24 07:53 FiO2 Intake & Output 01/21/24 01/22/24 01/22/24 18:59 06:59 18:59 Other: # Voids 3 2 1 # Bowel Movements 1 - Exam GENERAL DESCRIPTION: Middle-age male lying in bed in no distress RESPIRATORY SYSTEM: Unlabored breathing , decreased breath sounds at bases HEART: S1 S2 regular rate and rhythm , ABDOMEN: Soft , mild distention and left lower quadrant tenderness EXTREMITIES: No edema feet - Labs CBC & Chem 7: 01/22/24 06:04 01/22/24 06:04 Labs: Abnormal Lab Results - Last 24 Hours (Table) 01/22/24 01/22/24 Range/Units 06:04 06:04 WBC 17.4 H (3.8-10.6) k/uL RBC 4.06 L (4.30-5.90) m/uL Hgb 11.8 L (13.0-17.5) gm/dL Hct 37.2 L (39.0-53.0) % Neutrophils # 14.4 H (1.3-7.7) k/uL Calcium 8.3 L (8.4-10.2) mg/dL Microbiology - Last 24 Hours (Table) 01/17/24 11:45 Anaerobic Culture - Final Abdominal Fluid Anaerobic Gm Negative Bacilli Anaerobic Gram Positive Cocci 01/17/24 11:45 Gram Stain - Final Aspirate Body Fluid Culture - Final Escherichia coli Beta Hemolytic Strep Group C Khadra albicans Clostridium perfringens Assessment and Plan (1) Diverticulitis Current Visit: Yes Status: Acute Priority: High Code(s): K57.92 - DVTRCLI OF INTEST, PART UNSP, W/O PERF OR ABSCESS W/O BLEED SNOMED Code(s): 636534431 (2) Sepsis Current Visit: Yes Status: Acute Code(s): A41.9 - SEPSIS, UNSPECIFIED ORGANISM SNOMED Code(s): 50500309 Plan: 1patient presented to hospital with sepsis in this patient who did have a fever tachycardia elevated white count presenting with abdominal pain sources include uncomplicated diverticulitis as no mention of any abscess on the CT the likely organism need to cover with enteric gram-negative both aerobes and anaerobes 2-patient is status post CT-guided drainage of intra-abdominal abscess cultures currently E. coli and Khadra albicans 3-patient is afebrile white count is trending up and overall output in the drainage catheter has stopped patient benefit from repeat CT abdominal pelvis to make sure no evidence of any undrained abscess that may need to be drained furth er follow-up continue with the Zosyn and Anicetolucan question concern were answered Dictation was produced using [employer] dictation software. please excuse any grammatical, word or spelling errors. Time with Patient: Less than 30
[2024-01-23] MEDS: IOPAMIDOL CONTRAST (ORAL USE) VIAL PO PRN (06:30)
--- NOTE | 2024-01-23 10:41 | CT ---
EXAMINATION TYPE: CT abdomen pelvis w con CT DLP: 889.7 mGycm, Automated exposure control for dose reduction was used. DATE OF EXAM: 01/23/2024 8:17 AM COMPARISON: CT abdomen pelvis most recent from CLINICAL INDICATION:Male, 53 years old with history of abdominal pain, follow up on diverticulitis ab scess; Abdominal pain, follow up on diverticulitis abscess TECHNIQUE: Axial CT abdomen pelvis w con;Sagittal and coronal reformats were created on a separate w orkstation. Contrast used:100 ml mL of Isovue 370 with IV Contrast, (none if empty) Oral contrast used: with Oral Contrast (none if empty) FINDINGS: LOWER CHEST: Unremarkable ABDOMEN LIVER: Unremarkable GALLBLADDER AND BILE DUCTS: Unremarkable. PANCREAS: Unremarkable. SPLEEN: Unremarkable. ADRENAL GLANDS: Unremarkable. KIDNEYS AND URETERS: No evidence of hydronephrosis or renal calculus. The ureters are unremarkable. PELVIS BLADDER: Unremarkable REPRODUCTIVE: Unremarkable. ABDOMEN & PELVIS STOMACH AND BOWEL: Normal stomach.. Scattered diverticula are noted throughout the colon. A few sma ll bowel loops in the left lower quadrant are mildly dilated. Percutaneous drain has its tip within the cavity of the abscess. The remaining abscess is smaller than the prior exam of 01/17/2024. VASCULATURE: No evidence of aortic aneurysm. MUSCULOSKELETAL: No acute osseous abnormalities LYMPH NODES: No gross evidence for lymphadenopathy. SOFT TISSUE/ABDOMINAL WALL: Unremarkable IMPRESSION: Improvement of diverticulitis abscess since the prior study. . Mildly dilated small bowel loops in the left lower quadrant may indicate a focal ileus.
[2024-01-23 11:24] LABS: Basophils # (A) 0.06 X 10*3/uL (0.00-0.10); Basophils % (A) 0.3 %; Eosinophils # (A) 0.27 X 10*3/uL (0.04-0.35); Eosinophils % (A) 1.5 %; HCT 39.8 % (39.6-50.0); HGB 12.9 g/dL (13.0-17.0); Lymphocytes # (A) 2.67 X 10*3/uL (0.90-5.00); Lymphocytes % (A) 14.8 %; MCH 29.3 pg (27.0-32.0); MCHC 32.4 g/dL (32.0-37.0); MCV 90.2 FL (80.0-97.0); Mean Platelet Volume 9.8 FL (9.5-12.2); Monocytes # (A) 1.19 X 10*3/uL (0.20-1.00); Monocytes % (A) 6.6 %; NRBC Per 100 WBC 0 X 10*3/uL (0.00-0.01); Neutrophils # (A) 13.63 X 10*3/uL (1.80-7.70); Neutrophils % (A) 75.9 %; Platelet Count 514 X 10*3/uL (140-440); RBC 4.41 X 10*6/uL (4.40-5.60); RDW 15.2 % (11.5-14.5); WBC 17.99 X 10*3/uL (4.50-10.00)
[2024-01-23 11:38] LABS: BUN/Creat Ratio 10.78 Ratio (12.00-20.00); Blood Urea Nitrogen 9.7 mg/dL (9.0-27.0); Calcium 9.2 mg/dL (8.7-10.3); Carbon Dioxide 25.9 mmol/L (21.6-31.8); Chloride 102 mmol/L (96-109); Glucose 84 mg/dL (70-110); Potassium 4.8 mmol/L (3.5-5.5); Sodium 139 mmol/L (135-145)
--- NOTE | 2024-01-23 13:39 | P.PN ---
Subjective Progress Note Date: 01/23/24 Patient is a 53-year-old man with no known past medical history who initially presented with complaints of abdominal pain. In the emergency department he underwent an extensive evaluation. Initial vitals were remarkable for Tmax of 103.1 and a heart rate of 126. Initial laboratory analysis was remarkable for white blood cell count of 13.6, bilirubin 2.8. CT abdomen and pelvis demonstrated sigmoid diverticulitis with inability to rule out underlying mass. Influenza A/B/RSV/COVID-19 testing was negative. He received 2 L of IV fluid in the emergency and in the emergency department with some improvements in his blood pressure and heart rate. He was admitted for further monitoring. Surgery was consulted. Patient was noted to have sustained atrial tachycardia and subsequently cardiology was consulted. Echocardiogram was obtained which showed normal size ventricles with ejection fraction 55% and no significant wall motion abnormalities. Cardiology recommended continuing care for his diverticulitis. He was being followed by infectious disease and surgery. His white blood cell count continued to increase and on 01/16/[address] abdomen and pelvis was performed which demonstrated worsening of the diverticulitis that is involving the sigmoid colon with new fluid collection with air-fluid levels next to the sigmoid colon with small amount of intra hepatic portal vein thrombus. IR was consulted for drainage of abscess which was completed on 01/17/24. Cultures grew khadra and e. coli. Repeat CT abd/pel shows decreased size of abscess. Patient seen and examined at bedside. No new complaints, has been having more frequent bowel movements now. Vital signs reviewed General: Nontoxic, no distress, appears at stated age Cardiovascular: S1S2 reg, no murmur Lungs: CTA bilateral, no rhonchi, no rales, no accessory muscle use Abdominal: Soft, nontender, + distended, no guarding, drain in place Ext: No gross muscle atrophy, no edema b/l lower extremities, no contractures Neuro: CN II-XI grossly intact, no focal neuro deficits Psych: Alert, oriented, appropriate affect Assessment/Plan: Sigmoid diverticulitis with sepsis E coli and khadra pericolonic abscess with possible perforation s/p IR guided drainage with drain inplace Underlying mass not excluded Portal vein thrombus - Eliquis 10 mg PO BID - Zosyn 3.375 g IVPB q 8 hours D #9, diflucan 200 mg IVPB daily D#5 Discussed management with ID, awaiting call from radiology with regards to the true size of residual abscess -General surgery following Leukocytosis continues to worsen -Oncology recommendations: Provoked thrombus 3 months of Eliquis. Follow-up with hematology in 4 to 6 weeks. - pain control with morphine 4 mg IVP q 4 horus prn pain, ultram for mild pain Atrial tachycardia - cardio signed off, echo with EF 55% Hypokalemia, resolved Social stressor -Patient does not have insurance -recreation worker is currently working on seeing if we can arrange for outpatient IV antibiotics to be done through the infusion center with [facility]. Patient will be getting several home care visits through [facility]. He will have 1 month supply of Eliquis on discharge with coupon code. He has been given the number to call [place] [facility] to establish a primary care physician. Imaging: None new Data Review today: Fungal cultures-yeast species Aspirate cultures E. coli and Khadra. WBC 17.99, hemoglobin 12.9, creatinine 0.9 DVT prophylaxis: Eliquis Anticipated discharge date: Pending clinical course Anticipated discharge place: Pending clinical course Objective - Vital Signs Vital signs: Vital Signs Temp 97.7 F 01/23/24 07:20 Pulse 83 01/23/24 07:20 Resp 18 01/23/24 07:20 BP 114/76 01/23/24 07:20 Pulse Ox 95 01/23/24 07:20 FiO2 Intake & Output 01/22/24 01/23/24 01/23/24 18:59 06:59 18:59 Intake Total 1330 Output Total 0 Balance 1330 Intake: IV 130 Invasive Line 3 10 Invasive Line 4 20 Piperacillin-Tazobactam 3 100 .375 gm In Sodium Chloride 0.9% 100 ml @ 25 mls/hr IVPB Q8HR [facility] Rx# :[id number] Oral 1200 Output: Drainage 0 Left Lower Abdomen 0 Other: Voiding Method Toilet Toilet # Voids 3 2 # Bowel Movements 1 1 - Labs CBC & Chem 7: 01/23/24 05:47 01/23/24 05:47 Labs: Abnormal Lab Results - Last 24 Hours (Table) 01/23/24 01/23/24 Range/Units 05:47 05:47 WBC 17.99 H (4.50-10.00) X 10*3/uL Hgb 12.9 L (13.0-17.0) g/dL RDW 15.2 H (11.5-14.5) % Plt Count 514 H (140-440) X 10*3/uL Immature Gran # 0.17 H (0.00-0.04) X 10*3/uL Neutrophils # 13.63 H (1.80-7.70) X 10*3/uL Monocytes # 1.19 H (0.20-1.00) X 10*3/uL BUN/Creatinine Ratio 10.78 L (12.00-20.00) Ratio Microbiology - Last 24 Hours (Table) 01/17/24 11:45 Fungal Culture - Preliminary Aspirate Khadra albicans
--- NOTE | 2024-01-23 14:27 | P.PN ---
Subjective Progress Note Date: 01/23/24 Principal diagnosis: Portal vein thrombosis In follow-up today patient denies any bleeding, black or bloody stool, no unusual abdominal discomfort. Objective - Vital Signs Vital signs: Vital Signs Temp 97.7 F 01/23/24 07:20 Pulse 83 01/23/24 07:20 Resp 18 01/23/24 07:20 BP 114/76 01/23/24 07:20 Pulse Ox 95 01/23/24 07:20 FiO2 Intake & Output 01/22/24 01/23/24 01/23/24 18:59 06:59 18:59 Intake Total 1330 Output Total 0 Balance 1330 Weight 83.915 kg Intake: IV 130 Invasive Line 3 10 Invasive Line 4 20 Piperacillin-Tazobactam 3 100 .375 gm In Sodium Chloride 0.9% 100 ml @ 25 mls/hr IVPB Q8HR [facility] Rx# :[id number] Oral 1200 Output: Drainage 0 Left Lower Abdomen 0 Other: Voiding Method Toilet Toilet # Voids 3 2 # Bowel Movements 1 1 - Constitutional General appearance: Present: average body habitus, cooperative, no acute distress - EENT Eyes: Present: anicteric sclerae, EOMI ENT: Present: hearing grossly normal - Respiratory Details: Respirations even and unlabored at rest - Cardiovascular Details: Skin warm and dry to the touch - Neurologic Neurologic: Present: CNII-XII intact - Musculoskeletal Musculoskeletal: Present: strength equal bilaterally - Psychiatric Psychiatric: Present: A&O x's 3, appropriate affect, intact judgment & insight - Labs CBC & Chem 7: 01/23/24 05:47 01/23/24 05:47 Labs: Abnormal Lab Results - Last 24 Hours (Table) 01/23/24 01/23/24 Range/Units 05:47 05:47 WBC 17.99 H (4.50-10.00) X 10*3/uL Hgb 12.9 L (13.0-17.0) g/dL RDW 15.2 H (11.5-14.5) % Plt Count 514 H (140-440) X 10*3/uL Immature Gran # 0.17 H (0.00-0.04) X 10*3/uL Neutrophils # 13.63 H (1.80-7.70) X 10*3/uL Monocytes # 1.19 H (0.20-1.00) X 10*3/uL BUN/Creatinine Ratio 10.78 L (12.00-20.00) Ratio Microbiology - Last 24 Hours (Table) 01/17/24 11:45 Fungal Culture - Preliminary Aspirate Khadra albicans Assessment and Plan (1) Portal vein thrombosis Current Visit: Yes Status: Acute Priority: High Code(s): I81 - PORTAL VEIN THROMBOSIS SNOMED Code(s): 47008590 Plan: Portal vein thrombosis -CTAP was suspicious for thrombus. Confirmed with MRI of the liver, liver mass protocol -Provoked thrombus, provoking factors for formation of thrombus including chronic inflammation from diverticulosis, smoking as well as acute infection with a abscess. -Recommendation is for 3 months anticoagulation. Follow-up prior to completion of anticoagulation to see if any of the provoking factors have been discontinued-i.e. smoking-infection/abscess is healed and if there is a treatmen t plan for diverticulosis. -Reviewed with patient risks of being on anticoagulation again today. He had no further questions, he did recall most of our previous discussion -Has been transitioned to eliquis. Patient does not have prescription coverage. He is able to get the first month of medication for free. Confirmed with our office we will ensure the patient has samples to complete his 3 months of therapy. Patient verbalized understanding that he will have to contact our office to get the samples of Eliquis. -Pattern Worker follow-up appointment is in the discharge plan
--- NOTE | 2024-01-23 15:44 | P.PN ---
Subjective Progress Note Date: 01/23/24 CHIEF COMPLAINT: Diverticulitis HISTORY OF PRESENT ILLNESS: Patient reports that he is feeling better each day. He has minimal discomfort in the left lower quadrant. He had a repeat CT scan abdomen and pelvis ordered for today. Fluid output from the drain has decreased. Patient has had no output for the last couple of days. Afebrile. WBC elevated at 17.9 patient has been having bowel movements PHYSICAL EXAM: VITAL SIGNS: Reviewed. GENERAL: Well-developed in no acute distress. ABDOMEN: Soft. Mild tenderness left lower quadrant. Drain in place with old drainage NEUROLOGIC: Alert and oriented. Cranial nerves II through XII grossly intact. ASSESSMENT: 1. Acute sigmoid diverticulitis with abscess status post CT-guided drainage 2. Ileus 3. Portal vein thrombus followed by hematology PLAN: -Continue low fiber diet -Continue antibiotics -Encourage patient to ambulate -DVT prophylaxis on eliquis Physician Textile Stylist note has been reviewed by physician. Signing provider agrees with the documented findings, assessment, and plan of care. Objective - Vital Signs Vital signs: Vital Signs Temp 98.5 F 01/23/24 13:30 Pulse 91 01/23/24 13:30 Resp 18 01/23/24 13:30 BP 115/73 01/23/24 13:30 Pulse Ox 96 01/23/24 13:30 FiO2 Intake & Output 01/22/24 01/23/24 01/23/24 18:59 06:59 18:59 Intake Total 1330 Output Total 0 Balance 1330 Weight 83.915 kg Intake: IV 130 Invasive Line 3 10 Invasive Line 4 20 Piperacillin-Tazobactam 3 100 .375 gm In Sodium Chloride 0.9% 100 ml @ 25 mls/hr IVPB Q8HR [facility] Rx# :[id number] Oral 1200 Output: Drainage 0 Left Lower Abdomen 0 Other: Voiding Method Toilet Toilet # Voids 3 2 # Bowel Movements 1 1 - Labs CBC & Chem 7: 01/23/24 05:47 01/23/24 05:47 Labs: Abnormal Lab Results - Last 24 Hours (Table) 01/23/24 01/23/24 Range/Units 05:47 05:47 WBC 17.99 H (4.50-10.00) X 10*3/uL Hgb 12.9 L (13.0-17.0) g/dL RDW 15.2 H (11.5-14.5) % Plt Count 514 H (140-440) X 10*3/uL Immature Gran # 0.17 H (0.00-0.04) X 10*3/uL Neutrophils # 13.63 H (1.80-7.70) X 10*3/uL Monocytes # 1.19 H (0.20-1.00) X 10*3/uL BUN/Creatinine Ratio 10.78 L (12.00-20.00) Ratio Microbiology - Last 24 Hours (Table) 01/17/24 11:45 Fungal Culture - Preliminary Aspirate Khadra albicans
--- NOTE | 2024-01-23 17:43 | P.PN ---
Subjective Progress Note Date: 01/23/24 Principal diagnosis: Reason for follow-up is sepsis and diverticulitis Patient is a 53-year-old male with no significant past medical history currently everyday smoker patient presenting to the hospital for evaluation of abdominal pain, patient has been diagnosed with diverticulitis without any perforation, repeat CT did shows significant changes and concerning for an abscess.Patient is status post CT-guided drainage of the intra-abdominal abscess completed on 01/17/2024. On today's evaluation that is 01/23/2024, Patient is afebrile patient is currently on room air and denies having any shortness of breath, the patient denies any chest pain or cough, the patient denies any nausea vomiting abdominal pain has decreased in intensity no output in the drainage catheter. Patient white count is 17.99 creatinine 0.9, patient did have repeat CT improving diverticulitis however did not mention much of the abscess has decreased Objective - Vital Signs Vital signs: Vital Signs Temp 97.7 F 01/23/24 07:20 Pulse 83 01/23/24 07:20 Resp 18 01/23/24 07:20 BP 114/76 01/23/24 07:20 Pulse Ox 95 01/23/24 07:20 FiO2 Intake & Output 01/22/24 01/23/24 01/23/24 18:59 06:59 18:59 Intake Total 1330 Output Total 0 Balance 1330 Intake: IV 130 Invasive Line 3 10 Invasive Line 4 20 Piperacillin-Tazobactam 3 100 .375 gm In Sodium Chloride 0.9% 100 ml @ 25 mls/hr IVPB Q8HR [facility] Rx# :[id number] Oral 1200 Output: Drainage 0 Left Lower Abdomen 0 Other: Voiding Method Toilet Toilet # Voids 3 2 # Bowel Movements 1 1 - Exam GENERAL DESCRIPTION: Middle-age male lying in bed in no distress RESPIRATORY SYSTEM: Unlabored breathing , decreased breath sounds at bases HEART: S1 S2 regular rate and rhythm , ABDOMEN: Soft , mild distention and left lower quadrant tenderness EXTREMITIES: No edema feet - Labs CBC & Chem 7: 01/23/24 05:47 01/23/24 05:47 Labs: Abnormal Lab Results - Last 24 Hours (Table) 01/23/24 01/23/24 Range/Units 05:47 05:47 WBC 17.99 H (4.50-10.00) X 10*3/uL Hgb 12.9 L (13.0-17.0) g/dL RDW 15.2 H (11.5-14.5) % Plt Count 514 H (140-440) X 10*3/uL Immature Gran # 0.17 H (0.00-0.04) X 10*3/uL Neutrophils # 13.63 H (1.80-7.70) X 10*3/uL Monocytes # 1.19 H (0.20-1.00) X 10*3/uL BUN/Creatinine Ratio 10.78 L (12.00-20.00) Ratio Microbiology - Last 24 Hours (Table) 01/17/24 11:45 Fungal Culture - Preliminary Aspirate Khadra albicans Assessment and Plan (1) Diverticulitis Current Visit: Yes Status: Acute Priority: High Code(s): K57.92 - DVTRCLI OF INTEST, PART UNSP, W/O PERF OR ABSCESS W/O BLEED SNOMED Code(s): 043431075 (2) Sepsis Current Visit: Yes Status: Acute Code(s): A41.9 - SEPSIS, UNSPECIFIED ORGANISM SNOMED Code(s): 23385734 Plan: 1patient presented to hospital with sepsis in this patient who did have a fever tachycardia elevated white count presenting with abdominal pain sources include uncomplicated diverticulitis as no mention of any abscess on the CT the likely organism need to cover with enteric gram-negative both aerobes and anaerobes 2-patient is status post CT-guided drainage of intra-abdominal abscess cultures currently E. coli and Khadra albicans 3-patient is afebrile white count is trending up he did have a repeat CT which shows improvement in the abscess however did not give her the size of residual abscess this was discussed with the admitting team who will be clarifying it with the radiologist CT will be reviewed with urologist if available tomorrow switch antibiotic to Rocephin and Flagyl continue with Diflucan and repeat a CBC with a.m. lab Dictation was produced using [employer] dictation software. please excuse any grammatical, word or spelling errors. Time with Patient: Greater than 30
[2024-01-23] MEDS: metroNIDAZOLE 500 MG TAB PO SCH (21:34)
[2024-01-24 07:50] VITALS: BP 115/73; PULSE 79; RESP 18; TEMP 98.3
[2024-01-24 08:55] LABS: Basophils # (A) 0.08 X 10*3/uL (0.00-0.10); Basophils % (A) 0.6 %; Eosinophils # (A) 0.27 X 10*3/uL (0.04-0.35); Eosinophils % (A) 2.2 %; HCT 38.4 % (39.6-50.0); HGB 12.5 g/dL (13.0-17.0); Lymphocytes # (A) 2.46 X 10*3/uL (0.90-5.00); Lymphocytes % (A) 19.7 %; MCH 28.5 pg (27.0-32.0); MCHC 32.6 g/dL (32.0-37.0); MCV 87.5 FL (80.0-97.0); Mean Platelet Volume 9.7 FL (9.5-12.2); Monocytes # (A) 1.13 X 10*3/uL (0.20-1.00); NRBC Per 100 WBC 0 X 10*3/uL (0.00-0.01); Neutrophils # (A) 8.43 X 10*3/uL (1.80-7.70); Neutrophils % (A) 67.5 %; Platelet Count 529 X 10*3/uL (140-440); RBC 4.39 X 10*6/uL (4.40-5.60); RDW 15.1 % (11.5-14.5)
[2024-01-24 09:13] LABS: ALT 80 U/L (10-49); AST 55 U/L (14-35); Albumin 3.5 g/dL (3.8-4.9); Albumin/Globulin Ratio 1.06 Ratio (1.60-3.17); Alkaline Phosphatase 226 U/L (41-126); BUN/Creat Ratio 9.88 Ratio (12.00-20.00); Blood Urea Nitrogen 7.9 mg/dL (9.0-27.0); Calcium 9.1 mg/dL (8.7-10.3); Carbon Dioxide 24.2 mmol/L (21.6-31.8); Chloride 102 mmol/L (96-109); Globulin 3.3 g/dL (1.6-3.3); Glucose 97 mg/dL (70-110); Potassium 4.4 mmol/L (3.5-5.5); Sodium 136 mmol/L (135-145); Total Bilirubin 0.4 mg/dL (0.3-1.2); Total Protein 6.8 g/dL (6.2-8.2)
--- NOTE | 2024-01-24 13:02 | P.PN ---
Subjective Progress Note Date: 01/24/24 CHIEF COMPLAINT: Diverticulitis HISTORY OF PRESENT ILLNESS: Patient continues to feel better each day. He is having bowel movements. Reports that the pain in the left lower quadrant is better. He is tolerating low fiber diet. The drain with no new output. CT scan abdomen and pelvis had reported improvement of diverticulitis abscess since the prior study. Mildly dilated small bowel loops in the left lower quadrant may indicate a focal ileus. Afebrile. WBC is down from 17.9-12.5 PHYSICAL EXAM: VITAL SIGNS: Reviewed. GENERAL: Well-developed in no acute distress. ABDOMEN: Soft. Mild tenderness left lower quadrant. Drain in place with old drainage NEUROLOGIC: Alert and oriented. Cranial nerves II through XII grossly intact. ASSESSMENT: 1. Acute sigmoid diverticulitis with abscess status post CT-guided drainage 2. Ileus 3. Portal vein thrombus followed by hematology PLAN: -Patient can be discharged from surgical standpoint -Patient to be discharged with the drain -Patient to follow-up with Dr. Rausch in 1 week -Continue low fiber diet -Continue antibiotics per ID service -Encourage patient to ambulate -DVT prophylaxis on [facility] Physician Almond Blancher Operator note has been reviewed by physician. Signing provider agrees with the documented findings, assessment, and plan of care. Objective - Vital Signs Vital signs: Vital Signs Temp 98.3 F 01/24/24 07:08 Pulse 79 01/24/24 07:08 Resp 18 01/24/24 07:08 BP 115/73 01/24/24 07:08 Pulse Ox 97 01/24/24 07:08 FiO2 Intake & Output 01/23/24 01/24/24 01/24/24 18:59 06:59 18:59 Weight 83.915 kg Other: Voiding Method Toilet Toilet # Voids 3 2 - Labs CBC & Chem 7: 01/24/24 05:50 01/24/24 05:50 Labs: Abnormal Lab Results - Last 24 Hours (Table) 01/24/24 01/24/24 Range/Units 05:50 05:50 WBC 12.50 H (4.50-10.00) X 10*3/uL RBC 4.39 L (4.40-5.60) X 10*6/uL Hgb 12.5 L (13.0-17.0) g/dL Hct 38.4 L (39.6-50.0) % RDW 15.1 H (11.5-14.5) % Plt Count 529 H (140-440) X 10*3/uL Immature Gran # 0.13 H (0.00-0.04) X 10*3/uL Neutrophils # 8.43 H (1.80-7.70) X 10*3/uL Monocytes # 1.13 H (0.20-1.00) X 10*3/uL BUN 7.9 L (9.0-27.0) mg/dL BUN/Creatinine Ratio 9.88 L (12.00-20.00) Ratio AST 55 H (14-35) U/L ALT 80 H (10-49) U/L Alkaline Phosphatase 226 H (41-126) U/L C-Reactive Protein 4.50 H (0.00-0.80) mg/dL Albumin 3.5 L (3.8-4.9) g/dL Albumin/Globulin Ratio 1.06 L (1.60-3.17) Ratio
--- NOTE | 2024-01-24 15:30 | P.DS ---
Providers Date of admission: 01/12/24 16:32 Expected date of discharge: 01/24/24 Attending physician: Charo Benson MD Consults: 01/12/24 15:12 Consult Physician Stat Consulting Provider: Annalise Justin Consult Reason/Comments: diverticulitis Do you want consulting provider notified?: Yes 01/12/24 16:41 Consult Physician Routine Consulting Provider: Mckinley Rausch Consult Reason/Comments: possible sigmoid mass vs sepsis with diverticulitis Do you want consulting provider notified?: Yes 01/17/24 10:37 Consult Physician Routine Consulting Provider: Hira Riddle Consult Reason/Comments: Portal vein thrombus Do you want consulting provider notified?: Yes Primary care physician: Stated None Hospital Course: Discharge Diagnosis: Sigmoid diverticulitis with sepsis E coli and sergio pericolonic abscess with possible perforation s/p IR guided drainage with drain inplace Underlying mass not excluded Portal vein thrombus Ileus Atrial tachycardia Hospital Course: Patient is a 53-year-old man with no known past medical history who initially presented with complaints of abdominal pain. In the emergency department he underwent an extensive evaluation. Initial vitals were remarkable for Tmax of 103.1 and a heart rate of 126. Initial laboratory analysis was remarkable for white blood cell count of 13.6, bilirubin 2.8. CT abdomen and pelvis demonstrated sigmoid diverticulitis with inability to rule out underlying mass. Influenza A/B/RSV/COVID-19 testing was negative. He received 2 L of IV fluid in the emergency and in the emergency department with some improvements in his blood pressure and heart rate. He was admitted for further monitoring. Surgery was consulted. Patient was noted to have sustained atrial tachycardia and subsequently cardiology was consulted. Echocardiogram was obtained which showed normal size ventricles with ejection fraction 55% and no significant wall motion abnormalities. Cardiology recommended continuing care for his diverticulitis. He was being followed by infectious disease and surgery. His white blood cell count continued to increase and on 01/16/[address] abdomen and pelvis was performed which demonstrated worsening of the diverticulitis that is involving the sigmoid colon with new fluid collection with air-fluid levels next to the sigmoid colon with small amount of intra hepatic portal vein thrombus. IR was consulted for drainage of abscess which was completed on 01/17/24. Cultures grew segrio and e. coli. Patient was continued on Zosyn and Diflucan was added due to Sergio growing. He underwent repeat CT abdomen and pelvis on 01/23/2024 which shows decreased size of the abscess with mostly air involved at this time. He was switched to Rocephin, Flagyl, and Diflucan by infectious disease. His white blood cell count improved. His CRP improved. He was determined stable for discharge. Patient is a complex discharge due to having no insurance. He had a midline placed on 01/24/2024 without any complications. Follow-up: Arrangements were made for home health care visits with [facility], he will complete a 2-week course of IV Rocephin with oral Flagyl and Diflucan. He will follow-up with Dr. Mendez in 1 week. He will follow-up with oncology on 02/23/2024. He was given a prescription for Eliquis with a coupon card. He was also given information on the [facility] for the uninsured to establish as a primary care clinic. Patient seen and examined at bedside. No chest pain, shortness of breath. Normal bowel movements. Tolerating his diet. Feeling overall well. Reports that his drain has not had appropriate affect oriented Alert no focal neuro deficits CN II-XI grossly intact no contractures no edema b/l lower extremities No gross muscle atrophy no appreciable organomegaly no guarding nontender to palpation Soft no accessory muscle use no rhonchi, no rales CTA bilateral positive posterior tibial pulse bilateral no murmur S1S2 reg appears at stated age no distress Nontoxic much output in the last several days. Vital signs reviewed and stable. General: Nontoxic, no distress, appears at stated age Cardiovascular: S1S2 reg, n positiv positive posterior tibial pulse bilateral Abdominal: Soft, nontender to palpation, no guarding, no appreciable organomegaly Ext: No gross muscle atrophy, no edema b/l lower extremities, no contractures Neuro: CN II-XI grossly intact, no focal neuro deficits Psych: Alert, oriented, appropriate affect A total of 35 minutes of time were spent preparing this complex discharge summary. Patient was discharged on 01/24/24. This dictation was prepared using [employer]ED voice recognition software. Though every attempt is made to correct errors during dictation some may still exist. Patient Condition at Discharge: Fair Plan - Discharge Summary Discharge Rx Participant: Yes New Discharge Prescriptions: New Apixaban [Eliquis] 5 mg PO BID #60 tab hydrOXYzine HCL [Atarax] 25 mg PO BID #60 tab metroNIDAZOLE [Flagyl] 500 mg PO TID #42 tab Fluconazole [Diflucan] 200 mg PO DAILY #14 tablet cefTRIAXone [Rocephin] 2 gm IVPB Q24HR 14 Days each traMADol HCl [Ultram] 50 mg PO QID PRN #20 tab PRN Reason: Pain Continue Cholecalciferol (Vitamin D3) [Vitamin D3 (50 Mcg = 2000 Iu)] 50 mcg PO DAILY Discharge Medication List Cholecalciferol (Vitamin D3) [Vitamin D3 (50 Mcg = 2000 Iu)] 50 mcg PO DAILY 01/12/24 [History] Apixaban [Eliquis] 5 mg PO BID #60 tab 01/19/24 [Rx] Fluconazole [Diflucan] 200 mg PO DAILY #14 tablet 01/24/24 [Rx] cefTRIAXone [Rocephin] 2 gm IVPB Q24HR 14 Days each 01/24/24 [Rx] hydrOXYzine HCL [Atarax] 25 mg PO BID #60 tab 01/24/24 [Rx] metroNIDAZOLE [Flagyl] 500 mg PO TID #42 tab 01/24/24 [Rx] traMADol HCl [Ultram] 50 mg PO QID PRN #20 tab 01/24/24 [Rx] Follow up Appointment(s)/Referral(s): Mckinley Rausch MD [Medical Doctor] - 02/01/24 3:20 pm Hira Riddle [STAFF PHYSICIAN] - 02/23/24 3:15 pm (Eliquis samples will be available for pickup at that appointment. If patient needs Eliquis prior to that visit, please contact the office at [phone].) None,Stated [Primary Care Provider] - 1-2 days Patient Instructions/Handouts: Midline Catheter (DC) Activity/Diet/Wound Care/Special Instructions: Activity: As tolerated, no lifting greater than 10 pounds, no exercising causing you to break a sweat until drain removed. Diet: Low fiber for the next 1 week and then regular Special Instructions: Hem/Onc will be providing pt with eliquis samples. If needing meds before appt with Dr. Riddle on 02/22 please call office at [phone] ext [phone]. Please follow up at [facility] on Wednesday 01/24 at 12:30 for you IV antibiotics. Discharge Disposition: HOME WITH HOME HEALTH SERVICES
--- NOTE | 2024-01-24 15:39 | P.PN ---
Subjective Progress Note Date: 01/24/24 Principal diagnosis: Reason for follow-up is sepsis and diverticulitis Patient is a 53-year-old male with no significant past medical history currently everyday smoker patient presenting to the hospital for evaluation of abdominal pain, patient has been diagnosed with diverticulitis without any perforation, repeat CT did shows significant changes and concerning for an abscess.Patient is status post CT-guided drainage of the intra-abdominal abscess completed on 01/17/2024. On today's evaluation that is 01/24/2024, patient has been afebrile, patient is breathing comfortably and is currently on room air, patient denies having any significant cough no chest pain shortness of breath, patient denies nausea vomiting abdominal pain has improved feeling better. Patient white count is down to 12.50, creatinine 0.8 Objective - Vital Signs Vital signs: Vital Signs Temp 98.3 F 01/24/24 07:08 Pulse 79 01/24/24 07:08 Resp 18 01/24/24 07:08 BP 115/73 01/24/24 07:08 Pulse Ox 97 01/24/24 07:08 FiO2 Intake & Output 01/23/24 01/24/24 01/24/24 18:59 06:59 18:59 Weight 83.915 kg Other: Voiding Method Toilet Toilet # Voids 3 2 - Exam GENERAL DESCRIPTION: Middle-age male lying in bed in no distress RESPIRATORY SYSTEM: Unlabored breathing , decreased breath sounds at bases HEART: S1 S2 regular rate and rhythm , ABDOMEN: Soft , mild distention and left lower quadrant tenderness EXTREMITIES: No edema feet - Labs CBC & Chem 7: 01/24/24 05:50 01/24/24 05:50 Labs: Abnormal Lab Results - Last 24 Hours (Table) 01/24/24 01/24/24 Range/Units 05:50 05:50 WBC 12.50 H (4.50-10.00) X 10*3/uL RBC 4.39 L (4.40-5.60) X 10*6/uL Hgb 12.5 L (13.0-17.0) g/dL Hct 38.4 L (39.6-50.0) % RDW 15.1 H (11.5-14.5) % Plt Count 529 H (140-440) X 10*3/uL Immature Gran # 0.13 H (0.00-0.04) X 10*3/uL Neutrophils # 8.43 H (1.80-7.70) X 10*3/uL Monocytes # 1.13 H (0.20-1.00) X 10*3/uL BUN 7.9 L (9.0-27.0) mg/dL BUN/Creatinine Ratio 9.88 L (12.00-20.00) Ratio AST 55 H (14-35) U/L ALT 80 H (10-49) U/L Alkaline Phosphatase 226 H (41-126) U/L C-Reactive Protein 4.50 H (0.00-0.80) mg/dL Albumin 3.5 L (3.8-4.9) g/dL Albumin/Globulin Ratio 1.06 L (1.60-3.17) Ratio Assessment and Plan (1) Diverticulitis Current Visit: Yes Status: Acute Priority: High Code(s): K57.92 - DVTRCLI OF INTEST, PART UNSP, W/O PERF OR ABSCESS W/O BLEED SNOMED Code(s): 291339678 (2) Sepsis Current Visit: Yes Status: Acute Code(s): A41.9 - SEPSIS, UNSPECIFIED ORGANISM SNOMED Code(s): 99060356 Plan: 1patient presented to hospital with sepsis in this patient who did have a fever tachycardia elevated white count presenting with abdominal pain sources include uncomplicated diverticulitis as no mention of any abscess on the CT the likely organism need to cover with enteric gram-negative both aerobes and anaerobes 2-patient is status post CT-guided drainage of intra-abdominal abscess cultures currently E. coli and Khadra albicans 3-patient is afebrile white count is trending up he did have a repeat CT which shows improvement in the abscess and the patient white count is down to 12,000 patient will continue with IV Rocephin 2 g along with oral Flagyl and Diflucan for 2 weeks with a repeat CAT scan before completion was read by therapy and close outpatient follow-up prescription provided to the rn field case manager Dictation was produced using [employer] software. please excuse any grammatical, word or spelling errors. Time with Patient: Less than 30
== END 2024-01-24 16:20 | disposition home health service (06) | DRG 871 ==
LOC: EC 10:52 → 4SSUR 16:32
PROVIDERS: ADMIT Internal Medicine; ATTEND Internal Medicine
PROC: 0W9J30Z Drainage of Pelvic Cavity with Drainage Device, Percutaneous Approach (ICD-10-PCS; principal; 2024-01-17)
DX: A41.51 Sepsis due to Escherichia coli [E. coli] (principal); I81 Portal vein thrombosis; K65.1 Peritoneal abscess; K57.20 Diverticulitis of large intestine with perforation and abscess without bleeding; I47.19 Other supraventricular tachycardia; I47.20 Ventricular tachycardia, unspecified; K56.7 Ileus, unspecified; K92.1 Melena; B37.89 Other sites of candidiasis; K59.00 Constipation, unspecified; R65.20 Severe sepsis without septic shock; E87.6 Hypokalemia; F17.210 Nicotine dependence, cigarettes, uncomplicated; F41.9 Anxiety disorder, unspecified; K44.9 Diaphragmatic hernia without obstruction or gangrene; Z59.7 Insufficient social insurance and welfare support; Z11.52 Encounter for screening for COVID-19; Z28.310 Unvaccinated for COVID-19
CPT/HCPCS: 36410; 36415; 74018; 74019; 74177; 74183; 75989; 76937; 80048; 80053; 80076; 81001; 82150; 82272; 83605; 83630; 83690; 83735; 85025; 85027; 85610; 85652; 85730; 86140; 87040; 87045; 87046; 87070; 87075; 87077; 87102; 87186; 87205; 87636; 93005; 93306; 96361; 96365; 96374; 96375; 99285

== ENCOUNTER 2024-01-31 10:51 | Day surgery (SDC) | payer SELFPAY ==
[2024-01-31 13:05] VITALS: BP 127/73; PULSE 73; RESP 18; TEMP 97.9
== END 2024-01-31 11:40 | disposition home or self-care (01) ==
LOC: RADPROMAIN 10:51
PROVIDERS: ATTEND Radiology Body Imaging
DX: Z48.01 Encounter for change or removal of surgical wound dressing (principal)
CPT/HCPCS: 99213

== ENCOUNTER → 2024-04-17 | Outpatient (CLI) | payer OTHER ==
[2024-04-17 15:09] LABS: African American GFR (CKD) 74 (>60 ml/min/1.73 sqM); Blood Urea Nitrogen 17 mg/dL (9-20); Non-African American GFR(CKD) 64 (>60 ml/min/1.73 sqM)
--- NOTE | 2024-04-17 18:51 | CT ---
EXAMINATION TYPE: CT abdomen pelvis w con DATE OF EXAM: 04/17/2024 COMPARISON: Prior CT January 23, 2024 HISTORY: f/ u thrombus and diverticulitus CT DLP: 578.5 mGycm, Automated Exposure Control for Dose Reduction was Utilized. CONTRAST: CT scan of the abdomen and pelvis is performed with oral and with IV Contrast, patient injected with 100ml mL of Isovue 300. FINDINGS: LUNG BASES: Pectus excavatum deformity is partially imaged similar to prior. LIVER/GB: Contracted gallbladder on current study. No new biliary dilatation. Patent main portal vein and central branching veins are noted. No ascites. PANCREAS: No significant abnormality is seen. SPLEEN: No significant abnormality is seen. ADRENALS: No significant abnormality is seen. KIDNEYS: No significant abnormality is seen. BOWEL: Contrast-filled distended stomach. Oral contrast does not reach the level of the terminal ileu m makes evaluation of distal bowel slightly suboptimal. Prominent colonic diverticulosis involving th e left and sigmoid colon redemonstrated. Persistent severe wall thickening of the sigmoid colon axial image 72. No surrounding fat stranding to suggest acute diverticulitis. PROSTATE/SEMINAL VESICLES: Slightly enlarged prostate gland consistent with BPH is redemonstrated. LYMPH NODES: No greater than 1cm abdominal or pelvic lymph nodes are appreciated. OSSEOUS STRUCTURES: No significant abnormality is seen. OTHER: Mild calcified plaque of the aorta extends into branch vessels. Interval removal of left anter ior percutaneous drainage catheter. . No residual focal fluid collection or abscess. IMPRESSION: Severe distal colonic diverticulosis redemonstrated. No acute diverticulitis currently. N o abscess currently. Severe wall thickening of the sigmoid colon remains present. Underlying mass or neoplasm cannot be excluded. Colonoscopy follow-up advised if it has not been performed in last 3 yea rs.
== END | disposition home or self-care (01) ==
LOC: RADCTMAIN 14:28
PROVIDERS: ATTEND Internal Medicine Hematology & Oncology
DX: K57.30 Diverticulosis of large intestine without perforation or abscess without bleeding (principal); I81 Portal vein thrombosis
CPT/HCPCS: 82565; 84520; 74177; 36415; Q9967

== ENCOUNTER 2024-05-01 07:28 | Day surgery (SDC) | payer OTHER ==
[~2024-05-01 07:28] MED LIST: LIDOCAINE 1% (10MG/ML) FOR IV START INTRADERMA PRN
[2024-05-01 07:49] VITALS: TEMP 97.3
[2024-05-01] MEDS: LACTATED RINGERS 1,000 ML IV SCH (07:55)
[2024-05-01] MEDS: IV FLUID CONTINUATION 1,000 ML IV ONE (07:55)
[2024-05-01] MEDS ORDERED: LIDOCAINE 2% (PF) 20 MG/ML 5 ML VIAL ONE (08:34)
[2024-05-01] MEDS ORDERED: PROPOFOL 10 MG/ML 20 ML VIAL IV ONE (08:34)
--- NOTE | 2024-05-01 09:00 | P.PCN ---
Date of Procedure: 05/01/24 Procedure(s) Performed: PREOPERATIVE DIAGNOSIS: Diverticulitis POSTOPERATIVE DIAGNOSIS: Sigmoid colon inflammatory changes, extensive left- sided diverticulosis PROCEDURE: Colonoscopy with biopsy ANESTHESIA: MAC SURGEON: Mckinley Rausch M.D. SPECIMENS: Sigmoid colon ENDOSCOPIC PROCEDURE: The patient was placed on the endoscopy table in the left decubitus position. The Olympus colonoscope was inserted into the anus and passed under direct visualization to the base of the cecum. The appendiceal orifice was visualized. From that point the scope was slowly withdrawn inspecting all surfaces carefully. There were no neoplastic inflammatory or polypoid lesions throughout the cecum, ascending, transverse, and descending colon. At around 25 to 30 cm there was mucosal erythema and significant edema with tortuosity. This appeared to be the site of recent severe diverticulitis. Biopsies of the erythematous mucosa was taken in several areas. There were no frankly malignant changes noted. There were no polypoid lesions. There was extensive left-sided diverticulosis. The rectum appeared normal. Digital rectal examination was normal. The patient was taken to the recovery room in stable condition per anesthesia guidelines. RECOMMENDATIONS: Await biopsy results. Patient may benefit from elective sigmoid resection given the persistent inflammatory changes.
[2024-05-01 09:11] VITALS: RESP 16
[2024-05-01 09:23] VITALS: BP 109/72; PULSE 65
== END 2024-05-01 09:33 | disposition home or self-care (01) ==
LOC: ORWHC2ENDO 07:28
PROVIDERS: ATTEND Surgery
DX: K52.9 Noninfective gastroenteritis and colitis, unspecified (principal); K57.30 Diverticulosis of large intestine without perforation or abscess without bleeding; F41.9 Anxiety disorder, unspecified; F32.A Depression, unspecified; Z79.899 Other long term (current) drug therapy; Z87.891 Personal history of nicotine dependence
CPT/HCPCS: 88305; 45380; J2704; J2001

== ENCOUNTER → 2024-05-15 | Outpatient (CLI) | payer OTHER ==
--- NOTE | 2024-05-15 15:13 | XR ---
EXAMINATION TYPE: XR lumbar spine 2 or 3V DATE OF EXAM: 05/15/2024 COMPARISON: None HISTORY: Back pain intermittent times years TECHNIQUE: 3 view lumbar spine FINDINGS: There are 5 lumbar-type vertebral bodies. Pedicles are intact. There is narrowing of the L5 -S1 disc height. Posterior disc space narrowing is present L4-5. Remaining disc heights are preserved . Vertebral body heights are preserved. Alignment is normal. MRI can be performed as clinically indicated. IMPRESSION: 1. Degenerative disc changes lower lumbar spine.
== END | disposition home or self-care (01) ==
LOC: RADXRMAIN 14:27
PROVIDERS: ATTEND Family Medicine
DX: M51.36 Other intervertebral disc degeneration, lumbar region (principal); M47.816 Spondylosis without myelopathy or radiculopathy, lumbar region; M43.06 Spondylolysis, lumbar region
CPT/HCPCS: 72100